=== PATIENT | male | born 1985 | race Caucasian/White ===

== ENCOUNTER 2018-01-17 11:06 | Emergency (ER) | payer BC ==
[2018-01-17] MEDS ORDERED: NA CHLORIDE 0.9% 1,000 ML ONE (11:16)
[2018-01-17 11:35] LABS: Absolute Lymphocytes (CBC) 1.1 K/uL (0.7-4.9); Absolute Monocytes 0.5 K/uL (0.1-1.3); Absolute Neutrophil 7.5 K/uL (1.8-8.0); Basophils % 0.5 % (0-1.3); Eosinophils % 0.8 % (0-4.4); Hematocrit 43.4 % (39.6-49.0); Lymphocytes % 11.7 % (15.3-44.8); MCH 30.4 pg (27.0-35.0); MCV 87.6 fL (80-100); MPV 8.5 fL (7.6-11.3); Monocytes % 5.1 % (3.3-12.3); RBC Red Blood Cell Count 4.96 M/uL (4.33-5.43)
[2018-01-17 11:37] LABS: Protime INR 1.02
--- NOTE | 2018-01-17 11:41 | RAD REPORT ---
EXAM DESCRIPTION: RAD - Chest Single View - 01/17/2018 11:35 am CLINICAL HISTORY: Chest pain COMPARISON: January 2015 TECHNIQUE: AP portable chest image was obtained 1123 hours . FINDINGS: Lungs are clear. Heart and vasculature are normal. No measurable pleural effusion and no p neumothorax. No gross bony abnormality seen. No acute aortic findings suspected. IMPRESSION: No acute cardiopulmonary process. No significant interval change.
[2018-01-17 12:06] LABS: Potassium 3.2 mEq/L (3.6-5.0)
[2018-01-17 12:13] LABS: Albumin 4.3 g/dL (3.2-5.5); Bilirubin Direct 0.1 mg/dL (0-0.2); Bilirubin Total 0.6 mg/dL (0.3-1.2); Magnesium 1.8 mg/dL (1.8-2.5)
[2018-01-17] MEDS ORDERED: POTASSIUM CL SA 10 MEQ TAB PO ONE (12:35)
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
[2018-01-17 13:46] LABS: Urine Blood TRACE (NEG); Urine Glucose NEGATIVE (NEG); Urine Protein NEGATIVE (NEG)
--- NOTE | 2018-01-17 13:46 | EKG ---
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
== END 2018-01-17 14:05 | disposition home or self-care (01) ==
LOC: ER 11:06
DX: R00.0 Tachycardia, unspecified (principal); E86.0 Dehydration; Y99.0 Civilian activity done for income or pay; Z04.2 Encounter for examination and observation following work accident; Z88.6 Allergy status to analgesic agent
CPT/HCPCS: 36415; 71045; 80048; 80076; 81003; 82550; 83735; 83880; 84484; 85025; 85610; 93005; 99285; J7030

== ENCOUNTER 2018-03-30 23:19 | Emergency (ER) | payer BC, SELFPAY ==
--- OUTSIDE RECORDS SUMMARY | 2018-03-30 23:23 | XMS REPORT | Continuity of Care Document ---
:1985 Author Organization Interface Problems Problem Status Onset Classification Date Comments Source Date Reported FOLLOW UP Active 06/13/[address] ACUTE Active 06/08/20 [facility] GALLBLADDER [address] [place] [address] CONSULT FOR Active 05/23/20 [facility] GALLSTONES [address] [place] [address] ACUTE Active 05/21/20 [facility] CHOLECYSTITIS Z[place] STONE IN Active 05/21/20 [facility] GALBLADDER [address] Feeding Resolved 12/16/19 Problem 06/24/2017 inserted [facility] 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 Pain Active Problem 06/24/2017 [facility] Rib pain Active Problem 06/24/2017 [facility] Tracheostomy in Resolved Problem 06/24/2017 [facility] ACUTE Active [facility] CHOLECYSTITIS [place] Medications Medication Details Route Status Patient Ordering Order Source Instructions Provider Date Bisacodyl 10 mg, 1 supp, Inactive [facility] Route: MT, Drug 2017 Medical form: SUPP, Center Daily, Dosing Weight 118.864, kg, PRN Constipation, Start date: 06/12/17 10:27:00 CDT, Duration: 30 day, Stop date: 07/12/17 10:26:00 CSTNotes: (Same As: Dulcolax, Bisco-Lax) Bacitracin 0.5 1 appl, TOP, Active [facility] UNT/MG / QID, # 30 gm, 0 2017 [facility] Polymyxin B 10 Refill(s), [place] UNT/MG Topical [facility] [id number] tramadol 100 mg=2 tab, Active [place] hydrochloride 50 PO, Q6H, PRN 2017 Medical MG Oral Tablet Pain Score 1-3, [place] X 7 day, # 56 tab, 0 Refill(s) Acetaminophen 325 1 tab, PO, Q4H, Active 10/16/ [facility] MG / Hydrocodone PRN Pain Score 2017 Medical Bitartrate 10 MG 4-6, # 30 tab, 0 Center Oral Tablet Refill(s), given [Bath 10/325] to patient Margarito S oral 2 tab, PO, Active [place] tablet Bedtime, X 15 2017 Medical day, # 30 tab, 0 Center Refill(s), [facility] [id number] POLYETHYLENE 17 gm, PO, Active [place] GLYCOL 3350 142 Daily, X 15 day, 2017 Medical MG/ML Oral # 255 gm, 0 Center Solution Refill(s), [Miralax] Pharmacy: [facility] [id number] bacitracin-polymy 1 appl, Route: No Longer [place] evans B topical TOP, QID, Drug Active 2016 Medical form: OINT, Center Start date: 06/11/17 13:00:00 CDT, Duration: 30 day, Stop date: 07/11/17 9:00:00 CSTNotes: (Same As: Polysporin) Neosporin 1 appl, Route: Inactive [place] TOP, QID, Drug 2016 Medical form: OINT, Center Start date: 06/11/17 13:00:00 CDT, Duration: 30 day, Stop date: 07/11/17 9:00:00 PLAN EXAMINER remove patch 1 patch, Route: No Longer [facility], Drug form: Active 2017 Medical ERFILM, Daily, Center Start date: 06/11/17 12:00:00 CDT, Duration: 30 day, Stop date: 07/10/17 12:00:00 CSTNotes: Remove old patch before application of new patch. WASTE: F/P - P Waste Black; E - P Waste Black Nicotine 21 mg, 1 patch, No Longer [place] Route: TOP, Drug Active 2016 Medical form: ERFILM, Center Daily, Dosing Weight 118.864, kg, Start date: 06/11/17 12:00:00 CDT, Duration: 30 day, Stop date: 07/10/17 12:00:00 CSTNotes: (Same as: Habitrol) "Remove old patch before application of new patch" WASTE: F/P - P Waste Black; E - P Waste Black Habitrol 21 mg, Route: Inactive [place] TOP, Drug form: 2017 Medical ERFILM, Q24H, Center Dosing Weight 118.864, kg, Start date: 06/11/17 11:00:00 CDT, Duration: 30 day, Stop date: 07/10/17 11:00:00 PLAN EXAMINER Dulcolax Laxative 10 mg, 2 tab, No Longer [place] Route: PO, Drug Active 2016 Medical form: ECTAB, Center Daily, Dosing Weight 118.864, kg, PRN Constipation, Start date: 06/11/17 10:31:00 CDT, Duration: 30 day, Stop date: 07/11/17 10:30:00 CSTNotes: (Same As: Dulcolax, Correctol) (Do Not Crush) "Do Not Crush" Tramadol 100 mg, 2 tab, No Longer [place] Route: PO, Drug Active 2016 Medical form: TAB, Q6H, Center Dosing Weight 118.864, kg, PRN Pain Score 1-3, Start date: 06/11/17 10:30:00 CDT, Duration: 30 day, Stop date: 07/11/17 10:29:00 CSTNotes: Not to exceed 400mg/day. (Same As: Ultram) Acetaminophen 325 1 tab, Route: No Longer [place] MG / Hydrocodone PO, Drug Form: Active 2016 Medical Bitartrate 10 MG TAB, Dosing Center Oral Tablet Weight 118.864, [Bath 10/325] kg, Q4H, PRN Pain Score 4-6, Start date: 06/11/17 10:29:00 CDT, Duration: 30 day, Stop date: 07/11/17 10:28:00 CSTNotes: Do not exceed 4gm/day of acetaminophen. (Same as: Bath 325/10) Docusate Sodium 100 mg, 1 cap, No Longer [place] 100 MG Oral Route: PO, Drug Active 2016 Medical Capsule [Colace] form: CAP, BID, Center Dosing Weight 118.864, kg, Start date: 06/10/17 17:00:00 CDT, Duration: 30 day, Stop date: 07/10/17 9:00:00 CSTNotes: (Same as: Colace) (Do Not Crush) Cetirizine 10 mg, 1 tab, No Longer [place] Route: PO, Drug Active 2016 Medical form: TAB, Center Daily, Dosing Weight 118.864, kg, Start date: 06/10/17 11:00:00 CDT, Duration: 30 day, Stop date: 07/10/17 9:00:00 CSTNotes: (Same As: Zyrtec) tramadol 50 mg, 1 tab, No Longer [place] hydrochloride 50 Route: PO, Drug Active 2016 Medical MG Oral Tablet form: TAB, Q4H, Center Dosing Weight 118.864, kg, PRN Pain Score 1-3, Start date: 06/10/17 9:46:00 CDT, Duration: 30 day, Stop date: 07/10/17 9:45:00 CSTNotes: Not to exceed 400mg/day. (Same As: Ultram) Acetaminophen 325 1 tab, Route: No Longer [place] MG / Hydrocodone PO, Drug Form: Active 2016 Medical Bitartrate 5 MG TAB, Dosing Center Oral Tablet Weight 118.864, [Bath 5/325] kg, Q4H, PRN Pain Score 4-6, Start date: 06/10/17 9:46:00 CDT, Duration: 30 day, Stop date: 07/10/17 9:45:00 CSTNotes: (Same as: Bath 325/5) Do not exceed 4gm/day of acetaminophen. heparin 5,000 unit, 1 No Longer [place] mL, Route: Active 2016 Medical SUB-Q, Drug Center form: INJ, Q8H, Dosing Weight 118.864, kg, Start date: 06/10/17 8:00:00 CDT, Duration: 30 day, Stop date: 07/10/17 0:00:00 CSTNotes: porcine heparin remove patch 1 patch, Route: No Longer [place] TOP, Drug form: Active 2017 Medical ERFILM, Q24H, Center Start date: 06/10/17 2:00:00 CDT, Duration: 30 day, Stop date: 07/08/17 21:00:00 CSTNotes: WASTE: F/P - P Waste Black; E - P Waste Black D5W 1/2NS 1,000 1,000 mL, Rate: No Longer [facility] mL 50 ml/hr, Infuse Active [facility] Medical over: 20 hr, Center Route: IV, Dosing Weight 118.864 kg, Total Volume: 1,000, Start date: 06/09/17 13:50:00 CDT, Stop date: 07/09/17 13:49:00 PLAN EXAMINER glycopyrrolate Route: IV, Drug Inactive [place] (ANES) form: INJ, ONCE, 2016 Medical Stop date: [place] 06/09/17 10:44:00 CDT neostigmine Route: IV, Drug Inactive [place] (ANES) form: INJ, ONCE, 2016 Medical Stop date: [place] 06/09/17 10:44:00 CDT ondansetron Route: IV, Drug Inactive [place] (ANES) form: INJ, ONCE, 2016 Medical Stop date: [place] 06/09/17 10:34:00 CDT ketOROLAC (ANES) IV, ONCE Inactive [place] [address] [place] [address] hydromorphone Route: IV, Drug Inactive [place] (ANES) form: INJ, ONCE, 2016 Medical Stop date: [place] 06/09/17 9:02:00 CDT ketAMINE (ANES) Route: IV, Drug Inactive [place] form: INJ, ONCE, 2016 Medical Stop date: [place] 06/09/17 8:52:00 CDT famotidine (ANES) Route: IV, Drug Inactive [place] form: INJ, ONCE, 2016 Medical Stop date: [place] 06/09/17 8:42:00 CDT dexamethasone Route: IV, Drug Inactive [place] (ANES) form: INJ, ONCE, 2016 Medical Stop date: [place] 06/09/17 8:42:00 CDT succinylcholine Route: IV, Drug Inactive [place] (ANES) form: INJ, ONCE, 2016 Medical Stop date: [place] 06/09/17 8:42:00 CDT fentaNYL (ANES) Route: IV, Drug Inactive [place] form: INJ, ONCE, 2016 Medical Stop date: [place] 06/09/17 8:42:00 CDT rocuronium (ANES) Route: IV, Drug Inactive [place] form: INJ, ONCE, 2016 Medical Stop date: [place] 06/09/17 8:42:00 CDT lidocaine (ANES) Route: IV, Drug Inactive [place] form: INJ, ONCE, 2016 Medical Stop date: [place] 06/09/17 8:42:00 CDT propofol (ANES) Route: IV, Drug Inactive [place] form: INJ, ONCE, 2016 Medical Stop date: [place] 06/09/17 8:42:00 CDT metoclopramide Route: IV, Drug Inactive [place] (ANES) form: INJ, ONCE, 2016 Medical Stop date: [place] 06/09/17 8:42:00 CDT sodium Route: IV, Drug Inactive [place] bicarbonate form: INJ, ONCE, 2016 Medical (ANES) Stop date: [place] 06/09/17 8:42:00 CDT ceFAZolin (ANES) Route: IV, Drug Inactive [place] form: INJ, ONCE, 2016 Medical Stop date: [place] 06/09/17 8:27:00 CDT Hydralazine 10 mg, Route: Inactive [facility] IVP, Q20Min, 2016 Medical Dosing Weight Center 118.864, kg, PRN Elevated BP, Start date: 06/09/17 8:19:00 CDT, Duration: 2 doses or times, Stop date: Limited # of times Labetalol 10 mg, Route: Inactive [facility] IVP, Q5Min, 2016 Medical Dosing Weight Center 118.864, kg, PRN Elevated BP, Start date: 06/09/17 8:19:00 CDT, Duration: 5 doses or times, Stop date: Limited # of times Naloxone 0.4 mg, Route: Inactive [facility] IVP, Q2MIN, 2016 Medical Dosing Weight Center 118.864, kg, PRN Narcotic Reversal, Start date: 06/09/17 8:19:00 CDT, Duration: 8 doses or times, Stop date: Limited # of times Ondansetron 4 mg, Route: Inactive [place] IVP, ONCE, 2016 Medical Dosing Weight Center 118.864, kg, PRN Nausea & Vomiting, Start date: 06/09/17 8:19:00 CDT Flumazenil 0.2 mg, Route: Inactive [facility] IVP, PRN, Dosing 2017 Medical Weight 118.864, Center kg, PRN Benzodiazepine Reversal, Initial dose, Start date: 06/09/17 8:19:00 CDT, Duration: 30 day, Stop date: 07/09/17 7:18:00 PLAN EXAMINER Hydromorphone 0.5 mg, Route: Inactive [facility] IVP, Q5Min, 2017 Medical Dosing Weight Center 118.864, kg, PRN Pain Score 7-10, Start date: 06/09/17 8:19:00 CDT, Duration: 4 doses or times, Stop date: Limited # of times acetaminophen Route: IV, Drug Inactive [place] (ANES) (ANES) form: INJ, Start 2017 Medical date: 06/09/17 [place] 8:03:00 CDT, Stop date: 06/09/17 9:03:00 CDT midazolam (ANES) Route: IV, Drug Inactive [place] form: SOLN, 2017 Medical ONCE, Stop date: [place] 06/09/17 8:01:00 CDT Plasma-Lyte A Route: IV, Total Inactive [place] PH-7.4 1000 ml Volume: 1,000, 2017 Medical INJ (ANES) Start date: [place] 06/09/17 7:32:00 CDT, Stop date: 06/09/17 8:32:00 CDT Protonix 40 mg, 1 tab, No Longer [place] Route: PO, Drug Active 2017 [facility], Start date: 06/09/17 7:30:00 CDT, Duration: 30 day, Stop date: 07/08/17 16:30:00 PLAN EXAMINER Omeprazole 20 mg, Route: Inactive [place] PO, Drug form: [address] [place] [address] [facility], Dosing Weight 118.864, kg, Start date: 06/09/17 7:30:00 CDT, Duration: 30 day, Stop date: 07/08/17 16:30:00 PLAN EXAMINER, Substitute Allowed Yes Habitrol 14 mg, 1 patch, No Longer [place] Route: TOP, Drug Active 2016 Medical form: ERFILM, Center Q24H, Dosing Weight 118.864, kg, Start date: 06/09/17 2:00:00 CDT, Duration: 30 day, Stop date: 07/07/17 21:00:00 CSTNotes: (Same as: Habitrol) "Remove old patch before application of new patch" WASTE: F/P - P Waste Black; E - P Waste Black Nicotine 14 mg, 1 patch, No Longer [place] Route: TOP, Drug Active 2016 Medical form: ERFILM, Center Q24H, Dosing Weight 118.864, kg, Start date: 06/08/17 22:30:00 CDT, Duration: 30 day, Stop date: 07/07/17 22:30:00 CSTNotes: (Same as: Habitrol) "Remove old patch before application of new patch" WASTE: F/P - P Waste Black; E - P Waste Black Zosyn 3.375 gm, Route: No Longer [place] IVPB, Drug form: Active 2016 Medical PDR/INJ, ABXQ8H, Center Dosing Weight 118.864, kg, CrCl >=20 ml/min infuse over 4 hours, Priority: NOW, Start date: 06/08/17 21:17:00 CDT, Duration: 7 day, Stop date: 06/15/17 13:17:00 CDT, ABX Indication: Intra-abdominal I...Notes: (Same as: Zosyn) Dosing based on Piperacillin component MEDICATION WASTE Product Size: 3375 mg Product Wasted: __0_ mg Diazepam 5 mg, 1 tab, No Longer [place] Route: PO, Drug Active 2016 Medical form: TAB, Center Bedtime, Dosing Weight 119.3, kg, Start date: 06/08/17 21:00:00 CDT, Duration: 30 day, Stop date: 07/07/17 21:00:00 CSTNotes: (Same as: Valium) diazepam 5 mg 5 mg=1 tab, PO, Active [place] oral tablet Bedtime, PRN 2017 [facility] Anxiety [place] Iohexol 150 mL, Route: Inactive [place] IVP, Drug Form: 2017 Medical SOLN, Dosing Center Weight 118.864, kg, ONCALL, STAT, Start date: 06/08/17 18:22:00 CDT, Duration: 1 doses or times, Dose=2.2ml/kg, Max [id number]=[id number] -- "To be infused by Radiology Staff ONLY" Dilaudid 0.1 mg, 0.05 mL, No Longer [place] Route: IVP, Drug Active 2016 Medical form: INJ, Q4H, Center Dosing Weight 119.3, kg, PRN Pain Score 7-10, Start date: 06/08/17 16:32:00 CDT, Stop date: 07/08/17 16:31:00 CSTNotes: Same as: Dilaudid Simethicone 80 mg, 1 tab, No Longer [place] Route: CHEW, Active 2016 Medical Drug form: Center CHEWTAB, QID, Dosing Weight 119.3, kg, PRN Gas, Priority: NOW, Start date: 06/08/17 16:04:00 CDT, Duration: 30 day, Stop date: 07/08/17 16:03:00 CSTNotes: (Same as: Mylicon) Protonix 40 mg, Route: No Longer [place] IVP, Drug form: Active 2016 Medical INJ, Before Center Breakfast, Dosing Weight 119.3, kg, Priority: NOW, Start date: 06/08/17 16:03:00 CDT, Duration: 30 day, Stop date: 07/08/17 7:30:00 CSTNotes: For IV push reconstitute with 10 ml 0.9% sodium chloride and push over 2 minutes. (Same as: Protonix) sodium chloride 1,000 mL, Rate: No Longer [place] 0.9% 1000 ml INJ 150 ml/hr, Active 2017 Medical 1,000 mL Infuse over: 6.7 Center hr, Route: IV, Dosing Weight 119.3 kg, Total Volume: 1,000, Start date: 06/08/17 15:38:00 CDT, Duration: 30 day, Stop date: 07/08/17 15:37:00 PLAN EXAMINER Glucagon 1 mg, Route: IM, No Longer [place] Drug form: Active 2017 Medical PDR/INJ, PRN, Center Dosing Weight 119.3, kg, PRN Blood Glucose Results, Start date: 06/08/17 15:34:00 CDT, Duration: 30 day, Stop date: 07/08/17 14:33:00 PLAN EXAMINER Dextrose 50% 25 gm, 50 mL, No Longer [place] Syringe Route: IVP, Drug Active 2016 Medical Form: INJ, Center Dosing Weight 119.3, kg, PRN, PRN Blood Glucose Results, Start date: 06/08/17 15:34:00 CDT, Duration: 30 day, Stop date: 07/08/17 14:33:00 PLAN EXAMINER Insulin regular 5 unit, 0.05 mL, No Longer [facility] Route: SUB-Q, Active 2016 Medical Drug form: SOLN, Center Sliding Scale, Dosing Weight 119.3, kg, PRN Blood Glucose Results, Start date: 06/08/17 15:34:00 CDT, Duration: 30 day, Stop date: 07/08/17 14:33:00 CSTNotes: (Same as: Humulin R) Roll in palms of hands gently; Do not shake vigorously. "single patient use only" (Restricted to patients requiring a dose > 60 units) WASTE: F/P - Black; E - Boostable Trash Bin Stable for 28 days at room temperature Expires in days from Da te Phenergan 12.5 mg, 0.5 mL, No Longer [place] Route: IVPB, Active 2016 Medical Drug form: INJ, Center Q4H, Dosing Weight 119.3, kg, PRN Nausea & Vomiting, Start date: 06/08/17 15:27:00 CDT, Duration: 30 day, Stop date: 07/08/17 15:26:00 CSTNotes: Do not give IV push. (Same as: Phenergan) Dextrose 5% with 1,000 mL, Rate: Inactive [place] 0.45% NaCl IV 150 ml/hr, 2017 Medical 1,000 mL Infuse over: 6.7 Center hr, Route: IV, Dosing Weight 119.3 kg, Total Volume: 1,000, Start date: 06/08/17 15:27:00 CDT, Duration: 30 day, Stop date: 07/08/17 15:26:00 PLAN EXAMINER Saline Flush 0.9% 10 ml, Route: No Longer [place] IVP, Drug Form: Active 2017 Medical INJ, Dosing Center Weight 119.3, kg, PRN, PRN Line Flush, Start date: 06/08/17 15:27:00 CDT, Duration: 30 day, Stop date: 07/08/17 14:26:00 CSTNotes: (Same as: BD Posiflush) Morphine 2 mg, 0.5 mL, Inactive [place] Route: IVP, Drug 2016 Medical form: SOLN, Q4H, Center Dosing Weight 119.3, kg, PRN Pain Score 7-10, Start date: 06/08/17 15:27:00 CDT, Duration: 30 day, Stop date: 07/08/17 15:26:00 CSTNotes: (Same as:MORPhine Sulfate) Acetaminophen 300 1 tab, PO, Q6H, Active [place] MG / Codeine 0 Refill(s) 2017 Medical Phosphate 30 MG Center Oral Tablet Omeprazole Route: PO, No Longer Daily, Dosing Active 2016 [place] Weight 121.818, kg, Start date: 05/23/17 9:00:00 CDT, Duration: 30 day, Stop date: 06/21/17 9:00:00 CDT Zyrtec 10 mg, 2 tab, No Longer Route: PO, Drug Active 2016 [place] form: TAB, Daily, Dosing Weight 121.818, kg, Start date: 05/23/17 9:00:00 CDT, Duration: 30 day, Stop date: 06/21/17 9:00:00 CDTNotes: (Same As: Zyrtec) Protonix 40 mg, 1 tab, No Longer Route: PO, Drug Active 2016 [place] form: ECTAB, Before Breakfast, Start date: 05/23/17 7:30:00 CDT, Duration: 30 day, Stop date: 06/21/17 7:30:00 CDTNotes: Tablet should not be chewed or crushed. (Same as: Protonix) Diazepam 5 mg, 1 tab, Inactive Route: PO, Drug 2016 [place] form: TAB, Bedtime, Dosing Weight 121.818, kg, Start date: 05/22/17 21:00:00 CDT, Duration: 30 day, Stop date: 06/20/17 21:00:00 CDTNotes: (Same as: Valium) Acetaminophen 300 1 - 2 tab, PO, No Longer MG / Codeine Q4H, PRN Pain, X Active 2016 [place] Phosphate 30 MG 2 day, # 20 tab, Oral Tablet 0 Refill(s) [Tylenol with Codeine #3] Diazepam 5 mg, 1 tab, Inactive Route: PO, Drug 2016 [place] form: TAB, ONCE, Dosing Weight 121.818, kg, PRN Anxiety, Start date: 05/21/17 22:23:00 CDTNotes: (Same as: Valium) Zyrtec 10 mg, PO, Active Daily, 0 2016 [place] Refill(s) Omeprazole See Active Instructions, 2016 [place] Omeprazole with magnesium 20.6 PO Daily, 0 Refill(s) Diazepam 5 mg, PO, Active Bedtime, 0 2016 [place] Refill(s) Ondansetron 4 mg, 2 mL, No Longer Route: IVP, Drug Active 2016 [place] form: INJ, Q6H, Dosing Weight 120.455, kg, PRN Nausea & Vomiting, Start date: 05/21/17 16:11:00 CDT, Duration: 30 day, Stop date: 06/20/17 16:10:00 CDTNotes: (Same as: Renay) MEDICATION WASTE Product Size: 4 mg Product Wasted: ___ mg Acetaminophen 650 mg, 2 tab, No Longer Route: PO, Drug Active 2016 [place] form: TAB, Q4H, Dosing Weight 120.455, kg, PRN Pain 1-3/Temp > 100.4 F, Start date: 05/21/17 16:11:00 CDT, Duration: 30 day, Stop date: 06/20/17 16:10:00 CDTNotes: Do not exceed 4 gm/day. (Same as: Tylenol) Acetaminophen 325 1 tab, Route: No Longer MG / Hydrocodone PO, Drug Form: Active 2016 [place] Bitartrate 5 MG TAB, Dosing Oral Tablet Weight 120.455, kg, Q4H, PRN Pain Score 4-6, Start date: 05/21/17 16:11:00 CDT, Duration: 30 day, Stop date: 06/20/17 16:10:00 CDTNotes: (Same as: Bath 325/5) Do not exceed 4gm/day of acetaminophen. Morphine 2 mg, 1 mL, No Longer Route: IVP, Drug Active 2016 [place] form: SOLN, Q4H, Dosing Weight 120.455, kg, PRN Pain Score 7-10, Start date: 05/21/17 16:11:00 CDT, Duration: 30 day, Stop date: 06/20/17 16:10:00 CDT Zosyn 3.375 gm, Route: Inactive IVPB, ONCE, 2016 [place] Dosing Weight 120.455, kg, Priority: STAT, Start date: 05/21/17 15:50:00 CDT, Duration: 1 doses or times, Stop date: 05/21/17 15:50:00 CDT, ABX Indication: Surgical ProphylaxisNotes : (Same as: Zosyn) Dosing based on Piperacillin component MEDICATION WASTE Product Size: 3375 mg Product Wasted: ___ mg Morphine 4 mg, Route: Inactive IVP, ONCE, 2016 [place] Dosing Weight 120.455, kg, Start date: 05/21/17 15:35:00 CDT, Stop date: 05/21/17 15:35:00 CDT Sodium Chloride 1,000 mL, 1,000 Inactive 0.9% (Bolus) IV ml/hr, Infuse 2016 [place] Over: 1 hr, Route: IV, 1,000, Drug form: INJ, ONCE, Priority: STAT, Dosing Weight 120.455 kg, Start date: 05/21/17 15:35:00 CDT, Duration: 1 doses or times, Stop date: 05/21/17 15:35:00 CDT Ondansetron 4 mg, 2 mL, Inactive Route: IVP, Drug 2016 [place] form: INJ, ONCE, Dosing Weight 120.455, kg, Priority: STAT, Start date: 05/21/17 14:13:00 CDT, Stop date: 05/21/17 14:13:00 CDTNotes: (Same as: Renay) MEDICATION WASTE Product Size: 4 mg Product Wasted: ___ mg Sodium Chloride 1,000 mL, 1000 Inactive 0.9% (Bolus) IV ml/hr, Infuse 2016 [place] Over: 1 hr, Route: IV, 1,000, Drug form: INJ, ONCE, Priority: STAT, Dosing Weight 120.455 kg, Start date: 05/21/17 14:13:00 CDT, Duration: 1 doses or times, Stop date: 05/21/17 14:13:00 CDT Allergies, Adverse Reactions, Alerts Substance Category Reaction Severity Reaction Status Date Comments Source type Reported NKDA Assertion Drug Active [facility] [place], [place] Immunizations Immunization Date Given Site Status Last Updated Comments Source Results Order Name Results Value Reference Date Interpretation Comments Source Range CHEM PANEL ALT 188 unit/L 0 - 65 06/[address] CHEM PANEL Bili Total 1.1 mg/dL 0.2 - 1.3 06/[address] CHEM PANEL Bili Direct 0.1 mg/dL 0.0 - 0.3 06/[address] CHEM PANEL AST 69 unit/L 0 - 37 06/[address] CHEM PANEL Alk Phos 125 unit/L 39 - 136 06/[address] CHEM PANEL Albumin Lvl 3.3 g/dL 3.5 - 5.0 06/[address] CHEM PANEL Total 7.4 g/dL 6.4 - 8.4 06/12 [facility] Protein [address] CHEM PANEL Bili 1.0 mg/dL 0.0 - 1.0 06/[address] CHEM PANEL Globulin 4.1 g/dL 2.7 - 4.2 06/[address] CHEM PANEL A/G Ratio 0.8 0.7 - 1.6 06/[address] CHEM PANEL Phosphorus 3.9 mg/dL 2.5 - 4.5 06/[address] CHEM PANEL Magnesium 2.2 mg/dL 1.8 - 2.4 06/12 [facility] ELECTROLYTE AGAP 12.9 meq/L 10.0 - 06/12 [facility] 20. [facility] ELECTROLYTE eGFR 123 06/12 Result Comment: The eGFR is calculated using the CKD-EPI formula. In most young, healthy individuals the eGFR will be > 90 mL/min/1.73m2. The eGFR declines with age. An eGFR of 60-89 may be normal in [facility] mL/min/1.7 some populations, particularly the elderly, for whom the CKD-EPI formula has not been extensively validated. Use of the eGFR is not recommended in the following populations: [address] Individuals with unstable creatinine concentrations, including patients and those with serious co-morbid conditions. Patients with extremes in muscle mass or diet. The data above are obtained from the National Kidney Disease Education Program (NKDEP) which additionally recommends that when the eGFR is used in patients with extremes of body mass index for purposes of drug dosing, the eGFR should be multiplied by the estimated BMI. ELECTROLYTE Calcium Lvl 9.0 mg/dL 8.5 - 10.5 06/12 [facility] ELECTROLYTE CO2 26 meq/L 24 - 32 06/[address] ELECTROLYTE Potassium 3.9 meq/L 3.5 - 5.1 06/12 [facility] ELECTROLYTE Chloride Lvl 104 meq/L 95 - 109 06/[address] ELECTROLYTE Creatinine 0.71 mg/dL 0.50 - 06/12 [facility]. [facility] ELECTROLYTE Sodium Lvl 139 meq/L 135 - 145 06/12 [facility] ELECTROLYTE BUN 8 mg/dL 7 - 22 06/12 [facility] ELECTROLYTE Glucose Lvl 85 mg/dL 70 - 99 06/12 [facility] /2016 [facility] HEMATOLOGY RBC 4.58 M/CMM 4.70 - 06/12 [place] 6. [facility] HEMATOLOGY MCV 89.3 fL 80.0 - 06/12 [facility] 94.0 [facility] HEMATOLOGY WBC 7.3 K/CMM 3.7 - 10.4 06/12 [facility] HEMATOLOGY RDW 13.4 % 11.5 - 06/12 [facility] 14.5 [facility] HEMATOLOGY Platelet 178 K/CMM 133 - 450 06/12 [facility] HEMATOLOGY MPV 8.4 fL 7.4 - 10.4 06/12 [facility] HEMATOLOGY MCH 30.8 pg 27.0 - 06/12 31.0 [facility] HEMATOLOGY MCHC 34.4 g/dL 32.0 - 06/12 36.0 [facility] HEMATOLOGY Hgb 14.1 g/dL 14.0 - 06/12 [place] 18.0 [facility] HEMATOLOGY Hct 40.9 % 42.0 - 06/12 [place] 54.0 [facility] HEMATOLOGY Eosinophils 2.0 % 0.0 - 4.0 06/12 [facility] HEMATOLOGY Basophils 0.7 % 0.0 - 1.0 06/12 [facility] HEMATOLOGY Segs-Bands # 5.1 K/CMM 1.5 - 8.1 06/12 [facility] HEMATOLOGY Lymphocytes 1.4 K/CMM 1.0 - 5.5 06/12 [facility] [facility] HEMATOLOGY Monocytes # 0.6 K/CMM 0.0 - 0.8 06/12 [facility] HEMATOLOGY Eosinophils 0.1 K/CMM 0.0 - 0.5 06/12 [facility] HEMATOLOGY Basophils # 0.1 K/CMM 0.0 - 0.2 06/12 [facility] HEMATOLOGY Segs 70.2 % 45.0 - 06/12 75.0 [facility] HEMATOLOGY Lymphocytes 18.9 % 20.0 - 06/12 [place] 40.0 2017 [facility] HEMATOLOGY Monocytes 8.2 % 2.0 - 12.0 06/12 [facility] CHEM PANEL Phosphorus 2.1 mg/dL 2.5 - 4.5 06/11 [facility] CHEM PANEL Magnesium 2.2 mg/dL 1.8 - 2.4 06/11 [facility] Lvl [facility] CHEM PANEL Globulin 3.7 g/dL 2.7 - 4.2 06/11 [facility] CHEM PANEL A/G Ratio 0.9 0.7 - 1.6 06/11 [facility] CHEM PANEL Bili 0.7 mg/dL 0.0 - 1.0 06/11 [facility] CHEM PANEL ALT 209 unit/L 0 - 65 06/11 [facility] CHEM PANEL Albumin Lvl 3.4 g/dL 3.5 - 5.0 06/11 [facility] CHEM PANEL Total 7.1 g/dL 6.4 - 8.4 06/11 [facility] CHEM PANEL Bili Direct 0.1 mg/dL 0.0 - 0.3 06/11 [facility] CHEM PANEL Bili Total 0.8 mg/dL 0.2 - 1.3 06/11 [facility] CHEM PANEL Alk Phos 138 unit/L 39 - 136 06/11 [facility] CHEM PANEL AST 41 unit/L 0 - 37 06/11 [facility] CHEM PANEL eGFR 121 06/11 Result Comment: The eGFR is calculated using the CKD-EPI formula. In most young, healthy individuals the eGFR will be >90 mL/ min/1.73m2. The eGFR declines with age. An eGFR of 60-89 may be normal in [facility] mL/min/1.7 some populations, particularly the elderly, for whom the CKD-EPI formula has not been extensively validated. Use of the eGFR is not recommended in the following populations: [address] Individuals with unstable creatinine

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
--- OUTSIDE RECORDS SUMMARY | 2018-03-30 23:24 | XMS REPORT | Summary of Care ---
:1985 Author Organization [facility] Address [address] [place] [id number]- Encounter HQ Encntr_alias(FIN) [id number] Date(s): 06/08/17 - 06/12/[address] Professional Services provided by [facility] [place] [address]- Discharge Disposition: Home or Self Care Attending Physician: Bijan Mcneill MD Admitting Physician: Bijan Mcneill MD Referring Physician: Tex Gambino MD Vital Signs Most recent to oldest 1 2 3 [Reference Range]: Height 180.34 cm (06/08/17 4:21 PM) Current Weight 117.545 kg 119.205 kg 118.002 kg (06/12/17 9:43 AM) (06/11/17 4:19 AM) (06/09/17 5:07 AM) Temperature Oral [96.4-99.1 97.7 DegF 97.9 DegF 97.5 DegF DegF] (06/12/17 11:38 AM) (06/12/17 7:34 AM) (06/12/17 4:44 AM) Blood Pressure 141/94 mmHg 137/85 mmHg 125/82 mmHg [90-140/60-90 mmHg] *HI* (06/12/17 7:34 AM) (06/12/17 4:44 AM) (06/12/17 11:38 AM) Respiratory Rate [14-20 18 BRMIN 18 BRMIN 18 BRMIN BRMIN] (06/12/17 11:38 AM) (06/12/17 7:34 AM) (06/12/17 4:44 AM) Peripheral Pulse Rate 87 bpm 79 bpm 79 bpm [60-100 bpm] (06/12/17 11:38 AM) (06/12/17 7:34 AM) (06/12/17 4:44 AM) Weight 118.864 kg 118.636 kg (06/08/17 5:49 PM) (06/08/17 4:21 PM) Body Mass Index 36.48 m2 (06/08/17 4:21 PM) Problem List Condition Effective Dates Status Health Status Informant Feeding catheter, 12/15/09 - 12/21/09 Resolved device(Confirmed)1 Morbid obesity(Confirmed) Active Pain(Confirmed) Active Rib pain(Confirmed) Active Tracheostomy in place(Confirmed) Resolved 1inserted ENDO [place] Allergies, Adverse Reactions, Alerts Substance Reaction Severity Status NKDA Active Medications acetaminophen (ANES) (ANES) Route: IV, Drug form: INJ, Start date: 06/09/17 8:03:00 CDT, Stop date: 9:03:00 CDT Start Date: 06/09/17 Stop Date: 06/09/17 Status: CompletedANES flumazenil 0.2 mg, Route: IVP, PRN, Dosing Weight 118.864, kg, PRN Benzodiazepine Reversal , Initial dose, Startdate: 06/09/17 8:19:00 CDT, Duration: 30 day, Stop date: 7:18:00 DISBURSING OFFICER Start Date: 06/09/17 Stop Date: 06/09/17 Status: DiscontinuedANES hydrALAZINE 10 mg, Route: IVP, Q20Min, Dosing Weight 118.864, kg, PRN Elevated BP, Start date: 06/09/17 8:19:00 CDT, Duration: 2 doses or times, Stop date: Limited # of times Start Date: 06/09/17 Stop Date: 06/09/17 Status: DiscontinuedANES HYDROmorphone 0.5 mg, Route: IVP, Q5Min, Dosing Weight 118.864, kg, PRN Pain Score 7-10, Start date: 06/09/17 8:19:00 CDT, Duration: 4 doses or times, Stop date: Limited # of times Start Date: 06/09/17 Stop Date: 06/09/17 Status: DiscontinuedANES labetalol 10 mg, Route: IVP, Q5Min, Dosing Weight 118.864, kg, PRN Elevated BP, Start date : 06/09/17 8:19:00 CDT, Duration: 5 doses or times, Stop date: Limited # of times Start Date: 06/09/17 Stop Date: 06/09/17 Status: DiscontinuedANES naloxone 0.4 mg, Route: IVP, Q2MIN, Dosing Weight 118.864, kg, PRN Narcotic Reversal, Start date: 06/09/17 8:19:00 CDT, Duration: 8 doses or times, Stop date: Limited # of times Start Date: 06/09/17 Stop Date: 06/09/17 Status: DiscontinuedANES ondansetron 4 mg, Route: IVP, ONCE, Dosing Weight 118.864, kg, PRN Nausea & Vomiting, Start date: 06/09/17 8:19:00 CDT Start Date: 06/09/17 Stop Date: 06/09/17 Status: Discontinuedbacitracin-polymyxin B topical 1 appl, Route: TOP, QID, Drug form: OINT, Start date: 06/11/17 13:00:00 CDT, Duration: 30 day, Stop date: 07/11/17 9:00:00 DISBURSING OFFICER Notes: (Same As: Polysporin) Start Date: 06/11/17 Stop Date: 06/12/17 Status: Discontinuedbacitracin-polymyxin B topical ointment 1 appl, TOP, QID, # 30 gm, 0 Refill(s), Pharmacy: [facility] [id number] Start Date: 06/12/17 Stop Date: 06/26/17 Status: Orderedbisacodyl 10 mg, 1 supp, Route: LA, Drug form: SUPP, Daily, Dosing Weight 118.864, kg, PRN Constipation, Startdate: 06/12/17 10:27:00 CDT, Duration: 30 day, Stop date : 07/12/17 10:26:00 DISBURSING OFFICER Notes: (Same As: Dulcolax, Bisco-Lax) Start Date: 06/12/17 Stop Date: 06/12/17 Status: DiscontinuedceFAZolin (ANES) Route: IV, Drug form: INJ, ONCE, Stop date: 06/09/17 8:27:00 CDT Start Date: 06/09/17 Stop Date: 06/09/17 Status: Completedcetirizine 10 mg, 1 tab, Route: PO, Drug form: TAB, Daily, Dosing Weight 118.864, kg, Start date: 06/10/17 11:00:00 CDT, Duration: 30 day, Stop date: 07/10/17 9:00: 00 DISBURSING OFFICER Notes: (Same As: Zyrtec) Start Date: 06/10/17 Stop Date: 06/12/17 Status: DiscontinuedColace 100 mg oral capsule 100 mg, 1 cap, Route: PO, Drug form: CAP, BID, Dosing Weight 118.864, kg, Start date: 06/10/17 17:00:00 CDT, Duration: 30 day, Stop date: 07/10/17 9:00:00 DISBURSING OFFICER Notes: (Same as: Colace) (Do Not Crush) Start Date: 06/10/17 Stop Date: 06/12/17 Status: [id number] 1/2NS 1,000 mL 1,000 mL, Rate: 50 ml/hr, Infuse over: 20 hr, Route: IV, Dosing Weight 118.864 kg, Total Volume: 1,000, Start date: 06/09/17 13:50:00 CDT, Stop date: 07/09/17 13:49:00 DISBURSING OFFICER Start Date: 06/09/17 Stop Date: 06/11/17 Status: Discontinueddexamethasone (ANES) Route: IV, Drug form: INJ, ONCE, Stop date: 06/09/17 8:42:00 CDT Start Date: 06/09/17 Stop Date: 06/09/17 Status: CompletedDextrose 5% with 0.45% NaCl IV 1,000 mL 1,000 mL, Rate: 150 ml/hr, Infuse over: 6.7 hr, Route: IV, Dosing Weight 119.3 kg, Total Volume: 1,000, Start date: 06/08/17 15:27:00 CDT, Duration: 30 day, Stop date: 07/08/17 15:26:00 DISBURSING OFFICER Start Date: 06/08/17 Stop Date: 06/08/17 Status: DiscontinuedDextrose 50% Syringe 25 gm, 50 mL, Route: IVP, Drug Form: INJ, Dosing Weight 119.3, kg, PRN, PRN Blood Glucose Results, Start date: 06/08/17 15:34:00 CDT, Duration: 30 day, Stop date: 07/08/17 14:33:00 DISBURSING OFFICER Start Date: 06/08/17 Stop Date: 06/12/17 Status: DiscontinuedDextrose 50% Syringe 12.5 gm, 25 mL, Route: IVP, Drug Form: INJ, Dosing Weight 119.3, kg, PRN, PRN Blood Glucose Results,Start date: 06/08/17 15:34:00 CDT, Duration: 30 day, Stop date: 07/08/17 14:33:00 DISBURSING OFFICER Start Date: 06/08/17 Stop Date: 06/12/17 Status: Discontinueddiazepam 5 mg, 1 tab, Route: PO, Drug form: TAB, Bedtime, Dosing Weight 119.3, kg, Start date: 06/08/17 21:00:00 CDT, Duration: 30 day, Stop date: 07/07/17 21:00:00 DISBURSING OFFICER Notes: (Same as: Valium) Start Date: 06/08/17 Stop Date: 06/12/17 Status: Discontinueddiazepam 5 mg oral tablet 5 mg=1 tab, PO, Bedtime, PRN Anxiety Start Date: 06/08/17 Stop Date: 07/08/17 Status: OrderedDilaudid 0.1 mg, 0.05 mL, Route: IVP, Drug form: INJ, Q4H, Dosing Weight 119.3, kg, PRN Pain Score 7-10, Start date: 06/08/17 16:32:00 CDT, Stop date: 07/08/17 16:31: 00 DISBURSING OFFICER Notes: Same as: Dilaudid Start Date: 06/08/17 Stop Date: 06/12/17 Status: DiscontinuedDulcolax Laxative 10 mg, 2 tab, Route: PO, Drug form: ECTAB, Daily, Dosing Weight 118.864, kg, PRN Constipation, Startdate: 06/11/17 10:31:00 CDT, Duration: 30 day, Stop date : 07/11/17 10:30:00 DISBURSING OFFICER Notes: (Same As: Dulcolax, Correctol) (Do Not Crush) "Do Not Crush" Start Date: 06/11/17 Stop Date: 06/12/17 Status: Discontinuedfamotidine (ANES) Route: IV, Drug form: INJ, ONCE, Stop date: 06/09/17 8:42:00 CDT Start Date: 06/09/17 Stop Date: 06/09/17 Status: CompletedfentaNYL (ANES) Route: IV, Drug form: INJ, ONCE, Stop date: 06/09/17 8:42:00 CDT Start Date: 06/09/17 Stop Date: 06/09/17 Status: Completedglucagon 1 mg, Route: IM, Drug form: PDR/INJ, PRN, Dosing Weight 119.3, kg, PRN Blood Glucose Results, Start date: 06/08/17 15:34:00 CDT, Duration: 30 day, Stop date : 07/08/17 14:33:00 DISBURSING OFFICER Start Date: 06/08/17 Stop Date: 06/12/17 Status: Discontinuedglycopyrrolate (ANES) Route: IV, Drug form: INJ, ONCE, Stop date: 06/09/17 10:44:00 CDT Start Date: 06/09/17 Stop Date: 06/09/17 Status: CompletedHabitrol 14 mg, 1 patch, Route: TOP, Drug form: ERFILM, Q24H, Dosing Weight 118.864, kg, Start date: 172:00:00 CDT, Duration: 30 day, Stop date: 07/07/17 21:00:00 DISBURSING OFFICER Notes: (Same as: Habitrol)"Remove old patch before application of new patch "WASTE: F/P - P Waste Black; E - P Waste Black Start Date: 06/09/17 Stop Date: 06/11/17 Status: DiscontinuedHabitrol 21 mg, Route: TOP, Drug form: ERFILM, Q24H, Dosing Weight 118.864, kg, Start date: 06/11/17 11:00:00CDT, Duration: 30 day, Stop date: 07/10/17 11:00:00 DISBURSING OFFICER Start Date: 06/11/17 Stop Date: 06/11/17 Status: Canceledheparin 5,000 unit, 1 mL, Route: SUB-Q, Drug form: INJ, Q8H, Dosing Weight 118.864, kg, Start date: 10/14/178:00:00 CDT, Duration: 30 day, Stop date: 07/10/17 0:00:00 DISBURSING OFFICER Notes: porcine heparin Start Date: 06/10/17 Stop Date: 06/12/17 Status: Discontinuedhydromorphone (ANES) Route: IV, Drug form: INJ, ONCE, Stop date: 06/09/17 9:02:00 CDT Start Date: 06/09/17 Stop Date: 06/09/17 Status: CompletedInsulin regular 5 unit, 0.05 mL, Route: SUB-Q, Drug form: SOLN, Sliding Scale, Dosing Weight 119.3, kg, PRN Blood Glucose Results, Start date: 06/08/17 15:34:00 CDT, Duration: 30 day, Stop date: 07/08/17 14:33:00 DISBURSING OFFICER Notes: (Same as: Humulin R) Roll in palms of hands gently; Do not shake vigorously. "single patientuse only"(Restricted to patients requiring a dose > 60 units)WASTE: F/P - Black; E - Municipal Trash Bin Stable for 28 days at room temperatureExpires in days from Date Start Date: 06/08/17 Stop Date: 06/12/17 Status: DiscontinuedInsulin regular 4 unit, 0.04 mL, Route: SUB-Q, Drug form: SOLN, Sliding Scale, Dosing Weight 119.3, kg, PRN Blood Glucose Results, Start date: 06/08/17 15:34:00 CDT, Duration: 30 day, Stop date: 07/08/17 14:33:00 DISBURSING OFFICER Notes: (Same as: Humulin R) Roll in palms of hands gently; Do not shake vigorously. "single patientuse only"(Restricted to patients requiring a dose > 60 units)WASTE: F/P - Black; E - Municipal Trash Bin Stable for 28 days at room temperatureExpires in days from Date Start Date: 06/08/17 Stop Date: 06/12/17 Status: DiscontinuedInsulin regular 3 unit, 0.03 mL, Route: SUB-Q, Drug form: SOLN, Sliding Scale, Dosing Weight 119.3, kg, PRN Blood Glucose Results, Start date: 06/08/17 15:34:00 CDT, Duration: 30 day, Stop date: 07/08/17 14:33:00 DISBURSING OFFICER Notes: (Same as: Humulin R) Roll in palms of hands gently; Do not shake vigorously. "single patientuse only"(Restricted to patients requiring a dose > 60 units)WASTE: F/P - Black; E - Municipal Trash Bin Stable for 28 days at room temperatureExpires in days from Date Start Date: 06/08/17 Stop Date: 06/12/17 Status: DiscontinuedInsulin regular 2 unit, 0.02 mL, Route: SUB-Q, Drug form: SOLN, Sliding Scale, Dosing Weight 119.3, kg, PRN Blood Glucose Results, Start date: 06/08/17 15:34:00 CDT, Duration: 30 day, Stop date: 07/08/17 14:33:00 DISBURSING OFFICER Notes: (Same as: Humulin R) Roll in palms of hands gently; Do not shake vigorously. "single patientuse only"(Restricted to patients requiring a dose > 60 units)WASTE: F/P - Black; E - Municipal Trash Bin Stable for 28 days at room temperatureExpires in days from Date Start Date: 06/08/17 Stop Date: 06/12/17 Status: DiscontinuedInsulin regular 1 unit, 0.01 mL, Route: SUB-Q, Drug form: SOLN, Sliding Scale, Dosing Weight 119.3, kg, PRN Blood Glucose Results, Start date: 06/08/17 15:34:00 CDT, Duration: 30 day, Stop date: 07/08/17 14:33:00 DISBURSING OFFICER Notes: (Same as: Humulin R) Roll in palms of hands gently; Do not shake vigorously. "single patientuse only"(Restricted to patients requiring a dose > 60 units)WASTE: F/P - Black; E - Municipal Trash Bin Stable for 28 days at room temperatureExpires in days from Date Start Date: 06/08/17 Stop Date: 06/12/17 Status: DiscontinuedketAMINE (ANES) Route: IV, Drug form: INJ, ONCE, Stop date: 06/09/17 8:52:00 CDT Start Date: 06/09/17 Stop Date: 06/09/17 Status: CompletedketOROLAC (ANES) IV, ONCE Start Date: 06/09/17 Stop Date: 06/09/17 Status: Completedlidocaine (ANES) Route: IV, Drug form: INJ, ONCE, Stop date: 06/09/17 8:42:00 CDT Start Date: 06/09/17 Stop Date: 06/09/17 Status: Completedmetoclopramide (ANES) Route: IV, Drug form: INJ, ONCE, Stop date: 06/09/17 8:42:00 CDT Start Date: 06/09/17 Stop Date: 06/09/17 Status: Completedmidazolam (ANES) Route: IV, Drug form: SOLN, ONCE, Stop date: 06/09/17 8:01:00 CDT Start Date: 06/09/17 Stop Date: 06/09/17 Status: CompletedMiraLax oral powder for reconstitution 17 gm, PO, Daily, X 15 day, # 255 gm, 0 Refill(s), Pharmacy: [facility] [id number] Start Date: 06/12/17 Stop Date: 06/27/17 Status: Orderedmorphine Sulfate 2 mg, 0.5 mL, Route: IVP, Drug form: SOLN, Q4H, Dosing Weight 119.3, kg, PRN Pain Score 7-10, Start date: 06/08/17 15:27:00 CDT, Duration: 30 day, Stop date : 07/08/17 15:26:00 DISBURSING OFFICER Notes: (Same as:MORPhine Sulfate) Start Date: 06/08/17 Stop Date: 06/08/17 Status: DiscontinuedNeosporin 1 appl, Route: TOP, QID, Drug form: OINT, Start date: 06/11/17 13:00:00 CDT, Duration: 30 day, Stop date: 07/11/17 9:00:00 DISBURSING OFFICER Start Date: 06/11/17 Stop Date: 06/11/17 Status: Deletedneostigmine (ANES) Route: IV, Drug form: INJ, ONCE, Stop date: 06/09/17 10:44:00 CDT Start Date: 06/09/17 Stop Date: 06/09/17 Status: Completednicotine 14 mg, 1 patch, Route: TOP, Drug form: ERFILM, Q24H, Dosing Weight 118.864, kg, Start date: 06/08/1722:30:00 CDT, Duration: 30 day, Stop date: 07/07/17 22:30: 00 DISBURSING OFFICER Notes: (Same as: Habitrol)"Remove old patch before application of new patch "WASTE: F/P - P Waste Black; E - P Waste Black Start Date: 06/08/17 Stop Date: 06/09/17 Status: Deletednicotine 21 mg, 1 patch, Route: TOP, Drug form: ERFILM, Daily, Dosing Weight 118.864, kg , Start date: 06/11/17 12:00:00 CDT, Duration: 30 day, Stop date: 07/10/17 12:00 :00 DISBURSING OFFICER Notes: (Same as: Habitrol)"Remove old patch before application of new patch "WASTE: F/P - P Waste Black; E - P Waste Black Start Date: 06/11/17 Stop Date: 06/12/17 Status: DiscontinuedNorco 10/325 oral tablet 1 tab, Route: PO, Drug Form: TAB, Dosing Weight 118.864, kg, Q4H, PRN Pain Score 4-6, Start date: 06/11/17 10:29:00 CDT, Duration: 30 day, Stop date: 07/11 10:28:00 DISBURSING OFFICER Notes: Do not exceed 4gm/day of acetaminophen. (Same as: Kelly 325/10) Start Date: 06/11/17 Stop Date: 06/12/17 Status: DiscontinuedNorco 10/325 oral tablet 1 tab, PO, Q4H, PRN Pain Score 4-6, # 30 tab, 0 Refill(s), given to patient Start Date: 06/12/17 Stop Date: 06/26/17 Status: OrderedNorco 5/325 oral tablet 1 tab, Route: PO, Drug Form: TAB, Dosing Weight 118.864, kg, Q4H, PRN Pain Score 4-6, Start date: 06/10/17 9:46:00 CDT, Duration: 30 day, Stop date: 9:45:00 DISBURSING OFFICER Notes: (Same as: Kelly 325/5) Do not exceed 4gm/day of acetaminophen. Start Date: 06/10/17 Stop Date: 06/11/17 Status: Discontinuedomeprazole 20 mg, Route: PO, Drug form: ECCAP, BID-Before Meals, Dosing Weight 118.864, kg , Start date: 06/09/17 7:30:00 CDT, Duration: 30 day, Stop date: 07/08/17 16:30: 00 DISBURSING OFFICER, Substitute Allowed Yes Start Date: 06/09/17 Stop Date: 06/09/17 Status: DeletedOmnipaque 350mg/ml 150 mL, Route: IVP, Drug Form: SOLN, Dosing Weight 118.864, kg, ONCALL, STAT, Start date: 06/08/17 18:22:00 CDT, Duration: 1 doses or times, Dose=2.2ml/kg, Max huiv=[id number] -- "To be infused by Radiology Staff ONLY" Start Date: 06/08/17 Stop Date: 06/08/17 Status: Completedondansetron (ANES) Route: IV, Drug form: INJ, ONCE, Stop date: 06/09/17 10:34:00 CDT Start Date: 06/09/17 Stop Date: 06/09/17 Status: CompletedPhenergan 12.5 mg, 0.5 mL, Route: IVPB, Drug form: INJ, Q4H, Dosing Weight 119.3, kg, PRN Nausea & Vomiting, Start date: 06/08/17 15:27:00 CDT, Duration: 30 day, Stop date: 07/08/17 15:26:00 DISBURSING OFFICER Notes: Do not give IV push. (Same as: Phenergan) Start Date: 06/08/17 Stop Date: 06/12/17 Status: DiscontinuedPlasma-Lyte A PH-7.4 1000 ml INJ (ANES) Route: IV, Total Volume: 1,000, Start date: 06/09/17 7:32:00 CDT, Stop date: 8:32:00 CDT Start Date: 06/09/17 Stop Date: 06/09/17 Status: Completedpropofol (ANES) Route: IV, Drug form: INJ, ONCE, Stop date: 06/09/17 8:42:00 CDT Start Date: 06/09/17 Stop Date: 06/09/17 Status: CompletedProtonix 40 mg, 1 tab, Route: PO, Drug form: ECTAB, BID-Before Meals, Start date: 7:30:00 CDT, Duration: 30 day, Stop date: 07/08/17 16:30:00 DISBURSING OFFICER Start Date: 06/09/17 Stop Date: 06/12/17 Status: DiscontinuedProtonix 40 mg, Route: IVP, Drug form: INJ, Before Breakfast, Dosing Weight 119.3, kg, Priority: NOW, Start date: 06/08/17 16:03:00 CDT, Duration: 30 day, Stop date: 07/08/17 7:30:00 DISBURSING OFFICER Notes: For IV push reconstitute with 10 ml 0.9% sodium chloride and push over 2 minutes. (Same as: Protonix) Start Date: 06/08/17 Stop Date: 06/10/17 Status: Discontinuedremove patch 1 patch, Route: TOP, Drug form: ERFILM, Q24H, Start date: 06/10/17 2:00:00 CDT, Duration: 30 day, Stop date: 07/08/17 21:00:00 DISBURSING OFFICER Notes: WASTE: F/P - P Waste Black; E - P Waste Black Start Date: 06/10/17 Stop Date: 06/11/17 Status: Discontinuedremove patch 1 patch, Route: TOP, Drug form: ERFILM, Daily, Start date: 06/11/17 12:00:00 CDT , Duration: 30 day, Stop date: 07/10/17 12:00:00 DISBURSING OFFICER Notes: Remove old patch before application of new patch.WASTE: F/P - P Waste Black; E - P Waste Black Start Date: 06/11/17 Stop Date: 06/12/17 Status: Discontinuedrocuronium (ANES) Route: IV, Drug form: INJ, ONCE, Stop date: 06/09/17 8:42:00 CDT Start Date: 06/09/17 Stop Date: 06/09/17 Status: CompletedSaline Flush 0.9% 10 ml, Route: IVP, Drug Form: INJ, Dosing Weight 119.3, kg, PRN, PRN Line Flush , Start date: 06/08/17 15:27:00 CDT, Duration: 30 day, Stop date: 07/08/17 14:26 :00 DISBURSING OFFICER Notes: (Same as: BD Posiflush) Start Date: 06/08/17 Stop Date: 06/12/17 Status: DiscontinuedSenna S oral tablet 2 tab, PO, Bedtime, X 15 day, # 30 tab, 0 Refill(s), Pharmacy: [facility] [id number] Start Date: 06/12/17 Stop Date: 06/27/17 Status: Orderedsimethicone 80 mg, 1 tab, Route: CHEW, Drug form: CHEWTAB, QID, Dosing Weight 119.3, kg, PRN Gas, Priority: NOW,Start date: 06/08/17 16:04:00 CDT, Duration: 30 day, Stop date: 07/08/17 16:03:00 DISBURSING OFFICER Notes: (Same as: Mylicon) Start Date: 06/08/17 Stop Date: 06/12/17 Status: Discontinuedsodium bicarbonate (ANES) Route: IV, Drug form: INJ, ONCE, Stop date: 06/09/17 8:42:00 CDT Start Date: 06/09/17 Stop Date: 06/09/17 Status: Completedsodium chloride 0.9% 1000 ml INJ 1,000 mL 1,000 mL, Rate: 150 ml/hr, Infuse over: 6.7 hr, Route: IV, Dosing Weight 119.3 kg, Total Volume: 1,000, Start date: 06/08/17 15:38:00 CDT, Duration: 30 day, Stop date: 07/08/17 15:37:00 DISBURSING OFFICER Start Date: 06/08/17 Stop Date: 06/09/17 Status: Discontinuedsuccinylcholine (ANES) Route: IV, Drug form: INJ, ONCE, Stop date: 06/09/17 8:42:00 CDT Start Date: 06/09/17 Stop Date: 06/09/17 Status: Completedtramadol 100 mg, 2 tab, Route: PO, Drug form: TAB, Q6H, Dosing Weight 118.864, kg, PRN Pain Score 1-3, Start date: 06/11/17 10:30:00 CDT, Duration: 30 day, Stop date: 07/11/17 10:29:00 DISBURSING OFFICER Notes: Not to exceed 400mg/day. (Same As: Ultram) Start Date: 06/11/17 Stop Date: 06/12/17 Status: Discontinuedtramadol 50 mg oral tablet 50 mg, 1 tab, Route: PO, Drug form: TAB, Q4H, Dosing Weight 118.864, kg, PRN Pain Score 1-3, Start date: 06/10/17 9:46:00 CDT, Duration: 30 day, Stop date: 07/10/17 9:45:00 DISBURSING OFFICER Notes: Not to exceed 400mg/day. (Same As: Ultram) Start Date: 06/10/17 Stop Date: 06/11/17 Status: Discontinuedtramadol 50 mg oral tablet 100 mg=2 tab, PO, Q6H, PRN Pain Score 1-3, X 7 day, # 56 tab, 0 Refill(s) Start Date: 06/12/17 Stop Date: 06/19/17 Status: OrderedZosyn 3.375 gm, Route: IVPB, Drug form: PDR/INJ, ABXQ8H, Dosing Weight 118.864, kg, CrCl >=20 ml/min infuse over 4 hours, Priority: NOW, Start date: 06/08/17 21:17: 00 CDT, Duration: 7 day, Stop date: 06/15/17 13:17:00 CDT, ABX Indication: Intra -abdominal I... Notes: (Same as: Zosyn)Dosing based on Piperacillin component MEDICATION WASTE Product Size: 3375 mgProduct Wasted: __0_ mg Start Date: 06/08/17 Stop Date: 06/10/17 Status: Discontinued Results BLOOD BANK RESULTS Most recent to oldest [Reference Range]: 1 2 3 ABO/Rh A POS *Unknown* (06/08/17 6:25 PM) Antibody Scrn Negative (06/08/17 6:25 PM) ELECTROLYTES Most recent to oldest 1 2 3 [Reference Range]: Sodium Lvl [135-145 mEq/L] 139 mEq/L 138 mEq/L 141 mEq/L (06/12/17 3:11 AM) (06/11/17 5:05 AM) (06/10/17:17 AM) Potassium Lvl [3.5-5.1 3.9 mEq/L 3.6 mEq/L 3.6 mEq/L mEq/L] (06/12/17 3:11 AM) (06/11/17 5:05 AM) (06/10/17:17 AM) Chloride Lvl [95-109 mEq/L] 104 mEq/L 105 mEq/L 106 mEq/L (06/12/17 3:11 AM) (06/11/17 5:05 AM) (06/10/17 6:17 AM) CO2 [24-32 mEq/L] 26 mEq/L 23 mEq/L 25 mEq/L (06/12/17 3:11 AM) *LOW* (06/10/17:17 AM) (06/11/17 5:05 AM) AGAP [10.0-20.0 mEq/L] 12.9 mEq/L 13.6 mEq/L 13.6 mEq/L (06/12/17 3:11 AM) (06/11/17 5:05 AM) (06/10/17 6:17 AM) CHEM PANEL Most recent to oldest 1 2 3 [Reference Range]: Creatinine Lvl [0.50-1.40 0.71 mg/dL 0.75 mg/dL 0.88 mg/dL mg/dL] (06/12/17 3:11 AM) (06/11/17 5:05 AM) (06/10/17 6:17 AM) eGFR 123 mL/min/1.73m2 1 121 mL/min/1.73m2 2 113 mL/min/1.73m2 3 *NA* *NA* *NA* (06/12/17 3:11 AM) (06/11/17 5:05 AM) (06/10/17 6:17 AM) BUN [7-22 mg/dL] 8 mg/dL 5 mg/dL 11 mg/dL (06/12/17 3:11 AM) *LOW* (06/10/17 6:17 AM) (06/11/17 5:05 AM) Glucose Lvl [70-99 mg/dL] 85 mg/dL 80 mg/dL 157 mg/dL (06/12/17 3:11 AM) (06/11/17 5:05 AM) *HI* (06/10/17 6:17 AM) Total Protein [6.4-8.4 7.4 g/dL 7.1 g/dL 6.8 g/dL g/dL] (06/12/17 3:11 AM) (06/11/17 5:05 AM) (06/10/17 6:17 AM) Albumin Lvl [3.5-5.0 g/dL] 3.3 g/dL 3.4 g/dL 3.3 g/dL *LOW* *LOW* *LOW* (06/12/17 3:11 AM) (06/11/17 5:05 AM) (06/10/17 6:17 AM) Globulin [2.7-4.2 g/dL] 4.1 g/dL 3.7 g/dL 3.5 g/dL (06/12/17 3:11 AM) (06/11/17 5:05 AM) (06/10/17 6:17 AM) A/G Ratio [0.7-1.6] 0.8 0.9 0.9 (06/12/17 3:11 AM) (06/11/17 5:05 AM) (06/10/17 6:17 AM) Calcium Lvl [8.5-10.5 9.0 mg/dL 8.6 mg/dL 8.2 mg/dL mg/dL] (06/12/17 3:11 AM) (06/11/17 5:05 AM) *LOW* (06/10/17 6:17 AM) Phosphorus [2.5-4.5 mg/dL] 3.9 mg/dL 2.1 mg/dL 2.3 mg/dL (06/12/17 3:11 AM) *LOW* *LOW* (06/11/17 5:05 AM) (06/10/17 6:17 AM) Magnesium Lvl [1.8-2.4 2.2 mg/dL 2.2 mg/dL 2.2 mg/dL mg/dL] (06/12/17 3:11 AM) (06/11/17 5:05 AM) (06/10/17 6:17 AM) ALT [0-65 unit/L] 188 unit/L 209 unit/L 291 unit/L *HI* *HI* *HI* (06/12/17 3:11 AM) (06/11/17 5:05 AM) (06/10/17 6:17 AM) AST [0-37 unit/L] 69 unit/L 41 unit/L 56 unit/L *HI* *HI* *HI* (06/12/17 3:11 AM) (06/11/17 5:05 AM) (06/10/17 6:17 AM) Alk Phos [39-136 unit/L] 125 unit/L 138 unit/L 152 unit/L (06/12/17 3:11 AM) *HI* *HI* (06/11/17 5:05 AM) (06/10/17 6:17 AM) Bili Total [0.2-1.3 mg/dL] 1.1 mg/dL 0.8 mg/dL 0.8 mg/dL (06/12/17 3:11 AM) (06/11/17 5:05 AM) (06/10/17 6:17 AM) Bili Direct [0.0-0.3 0.1 mg/dL 0.1 mg/dL 0.2 mg/dL mg/dL] (06/12/17 3:11 AM) (06/11/17 5:05 AM) (06/10/17 6:17 AM) Bili Indirect [0.0-1.0 1.0 mg/dL 0.7 mg/dL 0.6 mg/dL mg/dL] (06/12/17 3:11 AM) (06/11/17 5:05 AM) (06/10/17 6:17 AM) Amylase Lvl [25-115 94 unit/L 435 unit/L 2135 unit/L unit/L] (06/10/17 6:17 AM) *HI* *HI* (06/09/17 4:18 AM) (06/08/17 4:27 PM) Lipase Lvl [73-393 unit/L] 337 unit/L 3772 unit/L 69239 unit/L (06/10/17 6:17 AM) *HI* *HI* (06/09/17 4:18 AM) (06/08/17 4:27 PM) Lactic Acid Lvl [0.5-2.2 0.5 mMol/L mMol/L] (06/08/17 6:25 PM) 1Result Comment: The eGFR is calculated using the CKD-EPI formula. In most young , healthy individualsthe eGFR will be >90 mL/min/1.73m2. The eGFR declines with age. An eGFR of 60-89 may be normal in some populations, particularly the elderly, for whom the CKD-EPI formula has not been extensively validated. Use of the eGFR is not recommended in the following populations: Individuals with unstable creatinine concentrations, including patients and those with serious co-morbid conditions. Patients with extremes in muscle mass or diet. The data above are obtained from the [employer] ( [employer]) which additionally recommends that when the eGFR is used in patients with extremes of body mass index for purposesof drug dosing, the eGFR should be multiplied by the estimated BMI.2Result Comment: The eGFR is calculated using the CKD-EPI formula. In most young, healthy individualsthe eGFR will be >90 mL/ min/1.73m2. The eGFR declines with age. An eGFR of 60-89 may be normal in some populations, particularly the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
--- OUTSIDE RECORDS SUMMARY | 2018-03-30 23:24 | XMS REPORT | Summary of Care ---
:1985 Author Organization [facility] Address [address] [place] [address]- Encounter HQ Danielito(FIN) [phone] Date(s): 05/21/17 - 05/22/17 [facility] [id number] [place] [phone] Discharge Disposition: Home or Self Care Attending Physician: Boy Olivera DO Admitting Physician: Boy Olivera DO Vital Signs Most recent to oldest 1 2 3 [Reference Range]: Height 182.88 cm 182.88 cm (05/21/17 8:50 PM) (05/21/17 1:16 PM) Temperature Oral [96.4-99.1 97.9 DegF 98.9 DegF 97.8 DegF DegF] (05/22/17 11:30 AM) (05/22/17 8:00 AM) (05/22/17 4:00 AM) Blood Pressure [90-140/60-90 124/82 mmHg 107/68 mmHg 116/74 mmHg mmHg] (05/22/17 11:30 AM) (05/22/17 8:00 AM) (05/22/17 4:00 AM) Respiratory Rate [14-20 18 BRMIN 20 BRMIN 20 BRMIN BRMIN] (05/22/17 8:00 AM) (05/22/17 4:00 AM) (05/22/17 12:00 AM) Peripheral Pulse Rate [60-100 79 bpm 64 bpm 70 bpm bpm] (05/22/17 11:30 AM) (05/22/17 8:00 AM) (05/22/17 4:00 AM) Weight 121.818 kg 120.455 kg (05/21/17 8:50 PM) (05/21/17 1:16 PM) Body Mass Index 36.42 m2 36.02 m2 (05/21/17 8:50 PM) (05/21/17 1:16 PM) Problem List Condition Effective Dates Status Health Status Informant Feeding catheter, 12/15/09 - 12/21/09 Resolved device(Confirmed)1 Pain(Confirmed) Active Rib pain(Confirmed) Active Tracheostomy in place(Confirmed) Resolved 1inserted ENDO [place] Allergies, Adverse Reactions, Alerts Substance Reaction Severity Status NKDA Active Medications acetaminophen 650 mg, 2 tab, Route: PO, Drug form: TAB, Q4H, Dosing Weight 120.455, kg, PRN Pain 1-3/Temp > 100.4 F, Start date: 05/21/17 16:11:00 CDT, Duration: 30 day, Stop date: 06/20/17 16:10:00 CDT Notes: Do not exceed 4 gm/day. (Same as: Tylenol) Start Date: 05/21/17 Stop Date: 05/22/17 Status: Discontinuedacetaminophen-hydrocodone 325 mg-5 mg oral tablet 1 tab, Route: PO, Drug Form: TAB, Dosing Weight 120.455, kg, Q4H, PRN Pain Score 4-6, Start date: 05/21/17 16:11:00 CDT, Duration: 30 day, Stop date: 06/20 16:10:00 CDT Notes: (Same as: [place] 325/5) Do not exceed 4gm/day of acetaminophen. Start Date: 05/21/17 Stop Date: 05/22/17 Status: Discontinueddiazepam 5 mg, 1 tab, Route: PO, Drug form: TAB, ONCE, Dosing Weight 121.818, kg, PRN Anxiety, Start date: 05/21/17 22:23:00 CDT Notes: (Same as: Valium) Start Date: 05/21/17 Stop Date: 05/21/17 Status: Completeddiazepam 5 mg, 1 tab, Route: PO, Drug form: TAB, Bedtime, Dosing Weight 121.818, kg, Start date: 05/22/17 21:00:00 CDT, Duration: 30 day, Stop date: 06/20/17 21:00: 00 CDT Notes: (Same as: Valium) Start Date: 05/22/17 Stop Date: 05/22/17 Status: Canceleddiazepam 5 mg, PO, Bedtime, 0 Refill(s) Start Date: 05/21/17 Status: Orderedmorphine Sulfate 4 mg, Route: IVP, ONCE, Dosing Weight 120.455, kg, Start date: 05/21/17 15:35: 00 CDT, Stop date: 05/21/17 15:35:00 CDT Start Date: 05/21/17 Stop Date: 05/21/17 Status: Completedmorphine Sulfate 2 mg, 1 mL, Route: IVP, Drug form: SOLN, Q4H, Dosing Weight 120.455, kg, PRN Pain Score 7-10, Start date: 05/21/17 16:11:00 CDT, Duration: 30 day, Stop date : 06/20/17 16:10:00 CDT Start Date: 05/21/17 Stop Date: 05/22/17 Status: Discontinuedomeprazole See Instructions, Omeprazole with magnesium 20.6 PO Daily, 0 Refill(s) Start Date: 05/21/17 Status: Orderedomeprazole Route: PO, Daily, Dosing Weight 121.818, kg, Start date: 05/23/17 9:00:00 CDT, Duration: 30 day, Stop date: 06/21/17 9:00:00 CDT Start Date: 05/23/17 Stop Date: 05/22/17 Status: Deletedondansetron 4 mg, 2 mL, Route: IVP, Drug form: INJ, ONCE, Dosing Weight 120.455, kg, Priority: STAT, Start date:05/21/17 14:13:00 CDT, Stop date: 05/21/17 14:13:00 CDT Notes: (Same as: Renay) MEDICATION WASTE Product Size: 4 mgProduct Wasted: ___ mg Start Date: 05/21/17 Stop Date: 05/21/17 Status: Completedondansetron 4 mg, 2 mL, Route: IVP, Drug form: INJ, Q6H, Dosing Weight 120.455, kg, PRN Nausea & Vomiting, Start date: 05/21/17 16:11:00 CDT, Duration: 30 day, Stop date: 06/20/17 16:10:00 CDT Notes: (Same as: Zofran) MEDICATION WASTE Product Size: 4 mgProduct Wasted: ___ mg Start Date: 05/21/17 Stop Date: 05/22/17 Status: DiscontinuedProtonix 40 mg, 1 tab, Route: PO, Drug form: ECTAB, Before Breakfast, Start date: 7:30:00 CDT, Duration: 30 day, Stop date: 06/21/17 7:30:00 CDT Notes: Tablet should not be chewed or crushed.(Same as: Protonix) Start Date: 05/23/17 Stop Date: 05/22/17 Status: CanceledSodium Chloride 0.9% (Bolus) IV 1,000 mL, 1,000 ml/hr, Infuse Over: 1 hr, Route: IV, 1,000, Drug form: INJ, ONCE , Priority: STAT, Dosing Weight 120.455 kg, Start date: 05/21/17 15:35:00 CDT, Duration: 1 doses or times, Stop date: 05/21/17 15:35:00 CDT Start Date: 05/21/17 Stop Date: 05/21/17 Status: CompletedSodium Chloride 0.9% (Bolus) IV 1,000 mL, 1000 ml/hr, Infuse Over: 1 hr, Route: IV, 1,000, Drug form: INJ, ONCE , Priority: STAT, Dosing Weight 120.455 kg, Start date: 05/21/17 14:13:00 CDT, Duration: 1 doses or times, Stop date: 05/21/17 14:13:00 CDT Start Date: 05/21/17 Stop Date: 05/21/17 Status: CompletedTylenol with Codeine #3 oral tablet 1 - 2 tab, PO, Q4H, PRN Pain, X 2 day, # 20 tab, 0 Refill(s) Start Date: 05/22/17 Stop Date: 05/24/17 Status: CompletedZosyn + sodium chloride 0.9% INJ 100 mL 3.375 gm, Route: IVPB, ONCE, Dosing Weight 120.455, kg, Priority: STAT, Start date: 05/21/17 15:50:00 CDT, Duration: 1 doses or times, Stop date: 05/21/17 15: 50:00 CDT, ABX Indication: Surgical Prophylaxis Notes: (Same as: Zosyn)Dosing based on Piperacillin component MEDICATION WASTE Product Size: 3375 mgProduct Wasted: ___ mg Start Date: 05/21/17 Stop Date: 05/21/17 Status: CompletedZyrTEC 10 mg, PO, Daily, 0 Refill(s) Start Date: 05/21/17 Status: OrderedZyrTEC 10 mg, 2 tab, Route: PO, Drug form: TAB, Daily, Dosing Weight 121.818, kg, Start date: 05/23/17 9:00:00 CDT, Duration: 30 day, Stop date: 06/21/17 9:00:00 CDT Notes: (Same As: Zyrtec) Start Date: 05/23/17 Stop Date: 05/22/17 Status: Canceled Results ELECTROLYTES Most recent to oldest [Reference Range]: 1 2 Sodium Lvl [135-145 mEq/L] 139 mEq/L 139 mEq/L (05/22/17 5:25 AM) (05/21/17 3:08 PM) Potassium Lvl [3.5-5.1 mEq/L] 3.5 mEq/L 3.7 mEq/L (05/22/17 5:25 AM) (05/21/17 3:08 PM) Chloride Lvl [95-109 mEq/L] 105 mEq/L 105 mEq/L (05/22/17 5:25 AM) (05/21/17 3:08 PM) CO2 [24-32 mEq/L] 24 mEq/L 26 mEq/L (05/22/17 5:25 AM) (05/21/17 3:08 PM) AGAP [10.0-20.0 mEq/L] 13.5 mEq/L 11.7 mEq/L (05/22/17 5:25 AM) (05/21/17 3:08 PM) CHEM PANEL Most recent to oldest [Reference Range]: 1 2 Creatinine Lvl [0.50-1.40 mg/dL] 0.76 mg/dL 0.86 mg/dL (05/22/17 5:25 AM) (05/21/17 3:08 PM) eGFR 120 mL/min/1.73m2 1 114 mL/min/1.73m2 2 *NA* *NA* (05/22/17 5:25 AM) (05/21/17 3:08 PM) BUN [7-22 mg/dL] 10 mg/dL 12 mg/dL (05/22/17 5:25 AM) (05/21/17 3:08 PM) B/C Ratio [6-25] 13 14 (05/22/17 5:25 AM) (05/21/17 3:08 PM) Glucose Lvl [70-99 mg/dL] 97 mg/dL 101 mg/dL (05/22/17 5:25 AM) *HI* (05/21/17 3:08 PM) Total Protein [6.4-8.4 g/dL] 7.4 g/dL 8.1 g/dL (05/22/17 5:25 AM) (05/21/17 3:08 PM) Albumin Lvl [3.5-5.0 g/dL] 3.5 g/dL 3.9 g/dL (05/22/17 5:25 AM) (05/21/17 3:08 PM) Globulin [2.7-4.2 g/dL] 3.9 g/dL 4.2 g/dL (05/22/17 5:25 AM) (05/21/17 3:08 PM) A/G Ratio [0.7-1.6] 0.9 0.9 (05/22/17 5:25 AM) (05/21/17 3:08 PM) Calcium Lvl [8.5-10.5 mg/dL] 8.7 mg/dL 8.9 mg/dL (05/22/17 5:25 AM) (05/21/17 3:08 PM) ALT [0-65 unit/L] 82 unit/L 52 unit/L *HI* (05/21/17 3:08 PM) (05/22/17 5:25 AM) AST [0-37 unit/L] 50 unit/L 42 unit/L *HI* *HI* (05/22/17 5:25 AM) (05/21/17 3:08 PM) Alk Phos [39-136 unit/L] 91 unit/L 92 unit/L (05/22/17 5:25 AM) (05/21/17 3:08 PM) Bili Total [0.2-1.3 mg/dL] 1.2 mg/dL 0.6 mg/dL (05/22/17 5:25 AM) (05/21/17 3:08 PM) Lipase Lvl [73-393 unit/L] 185 unit/L (05/21/17 3:08 PM) 1Result Comment: The eGFR is calculated [...] eGFR should be multiplied by the estimated BMI.URINE AND STOOL Most recent to oldest [Reference Range]: 1 2 UA Turbidity [Clear] Clear (05/21/17 3:08 PM) UA Color [Yellow] Yellow *NA* (05/21/17 3:08 PM) UA pH [5.0-8.0] 6.0 (05/21/17 3:08 PM) UA Spec Grav [<=1.030] 1.010 (05/21/17 3:08 PM) UA Glucose [Negative mg/dL] Negative mg/dL (05/21/17 3:08 PM) UA Blood [Negative] Negative (05/21/17 3:08 PM) UA Ketones [Negative mg/dL] Negative mg/dL *NA* (05/21/17 3:08 PM) UA Protein [Negative mg/dL] Negative mg/dL (05/21/17 3:08 PM) UA Urobilinogen [0.1-1.0 EU/dL] 1.0 EU/dL (05/21/17 3:08 PM) UA Bili [Negative] Negative *NA* (05/21/17 3:08 PM) UA Leuk Est [Negative] Negative (05/21/17 3:08 PM) UA Nitrite [Negative] Negative (05/21/17 3:08 PM) UA WBC [None Seen /HPF] 0-2 /HPF (05/21/17 3:08 PM) UA RBC [0-2] None Seen (05/21/17 3:08 PM) UA Bacteria Rare *NA* (05/21/17 3:08 PM) UA Sq Epi [Few] None Seen (05/21/17 3:08 PM) HEMATOLOGY Most recent to oldest [Reference Range]: 1 2 WBC [3.7-10.4 K/CMM] 6.7 K/CMM 9.4 K/CMM (05/22/17 5:25 AM) (05/21/17 3:08 PM) RBC [4.70-6.10 M/CMM] 4.88 M/CMM 5.23 M/CMM (05/22/17 5:25 AM) (05/21/17 3:08 PM) Hgb [14.0-18.0 g/dL] 15.2 g/dL 16.2 g/dL (05/22/17 5:25 AM) (05/21/17 3:08 PM) Hct [42.0-54.0 %] 42.6 % 45.8 % (05/22/17 5:25 AM) (05/21/17 3:08 PM) MCV [80.0-94.0 fL] 87.2 fL 87.6 fL (05/22/17 5:25 AM) (05/21/17 3:08 PM) MCH [27.0-31.0 pg] 31.1 pg 30.9 pg *HI* (05/21/17 3:08 PM) (05/22/17 5:25 AM) MCHC [32.0-36.0 g/dL] 35.7 g/dL 35.3 g/dL (05/22/17 5:25 AM) (05/21/17 3:08 PM) RDW [11.5-14.5 %] 13.3 % 13.8 % (05/22/17 5:25 AM) (05/21/17 3:08 PM) Platelet [133-450 K/CMM] 231 K/CMM 237 K/CMM (05/22/17:25 AM) (05/21/17 3:08 PM) MPV [7.4-10.4 fL] 8.3 fL 8.3 fL (05/22/17:25 AM) (05/21/17 3:08 PM) Segs [45.0-75.0 %] 76.4 % 80.1 % *HI* *HI* (05/22/17 5:25 AM) (05/21/17 3:08 PM) Lymphocytes [20.0-40.0 %] 14.6 % 12.0 % *LOW* *LOW* (05/22/17 5:25 AM) (05/21/17 3:08 PM) Monocytes [2.0-12.0 %] 6.3 % 6.1 % (05/22/17 5:25 AM) (05/21/17 3:08 PM) Eosinophils [0.0-4.0 %] 2.1 % 1.3 % (05/22/17 5:25 AM) (05/21/17 3:08 PM) Basophils [0.0-1.0 %] 0.6 % 0.5 % (05/22/17 5:25 AM) (05/21/17 3:08 PM) Segs-Bands # [1.5-8.1 K/CMM] 5.1 K/CMM 7.6 K/CMM (05/22/17:25 AM) (05/21/17 3:08 PM) Lymphocytes # [1.0-5.5 K/CMM] 1.0 K/CMM 1.1 K/CMM (05/22/17 5:25 AM) (05/21/17 3:08 PM) Monocytes # [0.0-0.8 K/CMM] 0.4 K/CMM 0.6 K/CMM (05/22/17 5:25 AM) (05/21/17 3:08 PM) Eosinophils # [0.0-0.5 K/CMM] 0.1 K/CMM 0.1 K/CMM (05/22/17 5:25 AM) (05/21/17 3:08 PM) Immunizations No data available for this [...] Smoking Cessation Counseling Yes Assessment and Plan No data available for this section
[2018-03-30 23:50] LABS: Absolute Lymphocytes (CBC) 1.1 K/uL (0.7-4.9); Absolute Monocytes 0.4 K/uL (0.1-1.3); Absolute Neutrophil 5.2 K/uL (1.8-8.0); Eosinophils % 2.4 % (0-4.4); Hematocrit 44.1 % (39.6-49.0); Lymphocytes % 16.4 % (15.3-44.8); MCH 30.8 pg (27.0-35.0); MCV 87.8 fL (80-100); MPV 8.3 fL (7.6-11.3); Monocytes % 5.5 % (3.3-12.3); RBC Red Blood Cell Count 5.03 M/uL (4.33-5.43)
[2018-03-31] MEDS ORDERED: NA CHLORIDE 0.9% 1,000 ML ONE (00:02)
[2018-03-31 00:11] LABS: ALT/SGPT 51 U/L (12-78); AST/SGOT 18 U/L (15-37); Albumin 3.5 g/dL (3.4-5.0); Alkaline Phosphatase 92 U/L (45-117); BUN Blood Urea Nitrogen 9 mg/dL (7-18); Bicarbonate 28 mmol/L (21-32); Bilirubin Direct 0.1 mg/dL (0-0.2); Bilirubin Total 0.4 mg/dL (0.2-1.0); CKMB Creatine Kinase MB < 1.0 ng/mL (0.3-3.6); Creatine Phosphokinase 91 U/L (39-308); Glucose Level 132 mg/dL (74-106); Lipase 238 U/L (73-393); Magnesium 2.1 mg/dL (1.8-2.4); NT PRO-BNP 24 pg/mL (<125); Protein, Total 7.9 g/dL (6.4-8.2); Sodium Level 141 mmol/L (136-145)
[2018-03-31] MEDS ORDERED: METHYLPREDNISOLONE 125 MG INJ ONE (00:39)
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
--- NOTE | 2018-03-31 07:26 | EKG ---
Test Date: 2018-03-30 Test Time: 23:42:44 Hydrotechnical Specialist: YOSELIN MEASUREMENT RESULTS: Intervals: Rate: 116 NV: 152 QRSD: 112 QT: 334 QTc: 464 Stollings: P: 47 NV: 152 QRS: -81 T: 15 INTERPRETIVE STATEMENTS: Sinus tachycardia with occasional premature ventricular complexes Left anterior fascicular block Possible Anterolateral infarct, age undetermined Incomplete right bundle branch block Abnormal ECG Compared to ECG 01/17/2018 11:18:24 Ventricular premature complex(es) now present Myocardial infarct finding still present Electronically Signed On 03-31-18 07:25:55 CDT by Aashish Cordero
--- NOTE | 2018-03-31 11:37 | RAD REPORT ---
EXAM DESCRIPTION: RAD - Chest Pa And Lat (2 Views) - 03/31/2018 12:26 am CLINICAL HISTORY: Cough;Dyspnea Chest pain. COMPARISON: Chest Single View dated 01/17/2018; ABDOMEN ACUTE SERIES dated 02/11/2015 FINDINGS: The lungs are clear. The heart is normal in size. No displaced fractures. IMPRESSION: No acute or concerning finding suspected.
== END 2018-03-31 01:29 | disposition home or self-care (01) ==
LOC: ER 23:19
DX: R06.00 Dyspnea, unspecified (principal); E86.0 Dehydration; I10 Essential (primary) hypertension; F41.9 Anxiety disorder, unspecified; Z72.0 Tobacco use; Z88.5 Allergy status to narcotic agent
CPT/HCPCS: 36415; 71046; 80048; 80076; 82550; 82553; 83690; 83735; 83880; 84484; 85025; 85379; 86308; 87040; 93005; 96361; 96374; 99285; J2930; J7030

== ENCOUNTER 2018-08-22 04:40 | Emergency (ER) | payer SELFPAY ==
--- OUTSIDE RECORDS SUMMARY | 2018-08-22 04:44 | XMS REPORT | Continuity of Care Document ---
:1985 Author Organization Interface Problems Problem Status Onset Classification Date Comments Source Date Reported FOLLOW UP Active 06/13/[address] ACUTE Active 06/08/20 [facility] GALLBLADDER [address] [place] [address] CONSULT FOR Active 05/23/20 [facility] GALLSTONES [address] [place] [address] ACUTE Active 05/21/20 [facility] CHOLECYSTITIS [place] STONE IN Active 05/21/20 [facility] GALBLADDER [address] [place] Feeding Resolved 12/16/19 Problem 06/24/2017 inserted [facility] catheter, 10 ENDO [place] lozenge maker<sup>1</king [place], p> [place] Morbid obesity Active Problem 06/24/2017 [facility] Pain Active Problem 06/24/2017 [facility] Rib pain Active Problem 06/24/2017 [facility] Tracheostomy in Resolved Problem 06/24/2017 [facility] ACUTE Active [facility] CHOLECYSTITIS [place] Medications Medication Details Route Status Patient Ordering Order Source Instructions Provider Date Bisacodyl 10 mg, 1 supp, Inactive [facility] Route: CT, Drug 2017 Medical form: SUPP, Center Daily, Dosing Weight 118.864, kg, PRN Constipation, Start date: 06/12/17 10:27:00 CDT, Duration: 30 day, Stop date: 07/12/17 10:26:00 CSTNotes: (Same As: Dulcolax, Bisco-Lax) Bacitracin 0.5 1 appl, TOP, Active [facility] UNT/MG / QID, # 30 gm, 0 2017 [facility] Polymyxin B 10 Refill(s), [place] UNT/MG Topical Pharmacy: [facility] [id number] tramadol 100 mg=2 tab, Active [place] hydrochloride 50 PO, Q6H, PRN 2017 Medical MG Oral Tablet Pain Score 1-3, [place] X 7 day, # 56 tab, 0 Refill(s) Acetaminophen 325 1 tab, PO, Q4H, Active 10/16/ [facility] MG / Hydrocodone PRN Pain Score 2017 Medical Bitartrate 10 MG 4-6, # 30 tab, 0 Center Oral Tablet Refill(s), given [Alma 10/325] to patient Margarito S oral 2 tab, PO, Active [place] tablet Bedtime, X 15 2017 Medical day, # 30 tab, 0 Center Refill(s), Pharmacy: [facility] [id number] POLYETHYLENE 17 gm, PO, Active [place] GLYCOL 3350 142 Daily, X 15 day, 2017 Medical MG/ML Oral # 255 gm, 0 Center Solution Refill(s), [Miralax] Pharmacy: [facility] [id number] bacitracin-polymy 1 appl, Route: No Longer [place] evans B topical TOP, QID, Drug Active 2016 Medical form: OINT, Center Start date: 06/11/17 13:00:00 CDT, Duration: 30 day, Stop date: 07/11/17 9:00:00 CSTNotes: (Same As: Polysporin) Neosporin 1 appl, Route: Inactive [place] TOP, QID, Drug 2016 Medical form: OINT, Center Start date: 06/11/17 13:00:00 CDT, Duration: 30 day, Stop date: 07/11/17 9:00:00 COURT DEPUTY remove patch 1 patch, Route: No Longer [facility], Drug form: Active 2017 Medical ERFILM, Daily, Center Start date: 06/11/17 12:00:00 CDT, Duration: 30 day, Stop date: 07/10/17 12:00:00 CSTNotes: Remove old patch before application of new patch. WASTE: F/P - P Waste Black; E - P Waste Black Nicotine 21 mg, 1 patch, No Longer [place] Route: TOP, Drug Active 2016 Medical form: ERFILM, Center Daily, Dosing Weight 118.864, kg, Start date: 06/11/17 12:00:00 CDT, Duration: 30 day, Stop date: 07/10/17 12:00:00 CSTNotes: (Same as: Habitrol) "Remove old patch before application of new patch" WASTE: F/P - P Waste Black; E - P Waste Black Habitrol 21 mg, Route: Inactive [place] TOP, Drug form: 2017 Medical ERFILM, Q24H, Center Dosing Weight 118.864, kg, Start date: 06/11/17 11:00:00 CDT, Duration: 30 day, Stop date: 07/10/17 11:00:[address] DEPUTY Dulcolax Laxative 10 mg, 2 tab, No Longer [place] Route: PO, Drug Active 2016 Medical form: ECTAB, Center Daily, Dosing Weight 118.864, kg, PRN Constipation, Start date: 06/11/17 10:31:00 CDT, Duration: 30 day, Stop date: 07/11/17 10:30:00 CSTNotes: (Same As: Dulcolax, Correctol) (Do Not Crush) "Do Not Crush" Tramadol 100 mg, 2 tab, No Longer [place] Route: PO, Drug Active 2016 Medical form: TAB, Q6H, Center Dosing Weight 118.864, kg, PRN Pain Score 1-3, Start date: 06/11/17 10:30:00 CDT, Duration: 30 day, Stop date: 07/11/17 10:29:00 CSTNotes: Not to exceed 400mg/day. (Same As: Ultram) Acetaminophen 325 1 tab, Route: No Longer [place] MG / Hydrocodone PO, Drug Form: Active 2016 Medical Bitartrate 10 MG TAB, Dosing Center Oral Tablet Weight 118.864, [Alma 10/325] kg, Q4H, PRN Pain Score 4-6, Start date: 06/11/17 10:29:00 CDT, Duration: 30 day, Stop date: 07/11/17 10:28:00 CSTNotes: Do not exceed 4gm/day of acetaminophen. (Same as: Alma 325/10) Docusate Sodium 100 mg, 1 cap, No Longer [place] 100 MG Oral Route: PO, Drug Active 2016 Medical Capsule [Colace] form: CAP, BID, Center Dosing Weight 118.864, kg, Start date: 06/10/17 17:00:00 CDT, Duration: 30 day, Stop date: 07/10/17 9:00:00 CSTNotes: (Same as: Colace) (Do Not Crush) Cetirizine 10 mg, 1 tab, No Longer [place] Route: PO, Drug Active 2016 Medical form: [...] Acetaminophen 325 1 tab, Route: No Longer [place] MG / Hydrocodone PO, Drug Form: Active 2016 Medical Bitartrate 5 MG TAB, Dosing Center Oral Tablet Weight 118.864, [Alma 5/325] kg, Q4H, PRN Pain Score 4-6, Start date: 06/10/17 9:46:00 CDT, Duration: 30 day, Stop date: 07/10/17 9:45:00 CSTNotes: (Same as: Alma 325/5) Do not exceed 4gm/day of acetaminophen. heparin 5,000 unit, 1 No Longer [place] mL, Route: Active 2016 Medical SUB-Q, Drug Center form: INJ, Q8H, Dosing Weight 118.864, kg, Start date: 06/10/17 8:00:00 CDT, Duration: 30 day, Stop date: 07/10/17 0:00:00 CSTNotes: porcine heparin remove patch 1 patch, Route: No Longer [place] TOP, Drug form: Active 2017 Medical ERFILM, Q24H, Center Start date: 06/10/17 2:00:00 CDT, Duration: 30 day, Stop date: 07/08/17 21:00:00 CSTNotes: WASTE: F/P - P Waste Black; E - P Waste Black D5W 1/2NS 1,000 1,000 mL, Rate: No Longer [facility] mL 50 ml/hr, Infuse Active [facility] Medical over: 20 hr, Center Route: IV, Dosing Weight 118.864 kg, Total Volume: 1,000, Start date: 06/09/17 13:50:00 CDT, Stop date: 07/09/17 13:49:00 [address] DEPUTY glycopyrrolate Route: IV, Drug Inactive [place] (ANES) form: INJ, ONCE, 2016 Medical Stop date: [place] 06/09/17 10:44:00 CDT neostigmine Route: IV, Drug Inactive [place] (ANES) form: INJ, ONCE, 2016 Medical Stop date: [place] 06/09/17 10:44:00 CDT ondansetron Route: IV, Drug Inactive [place] (ANES) form: INJ, ONCE, 2016 Medical Stop date: [place] 06/09/17 10:34:00 CDT ketOROLAC (ANES) IV, ONCE Inactive [place] [address] [place] [address] hydromorphone Route: IV, Drug Inactive [place] (ANES) form: INJ, ONCE, 2016 Medical Stop date: [place] 06/09/17 9:02:00 CDT ketAMINE (ANES) Route: IV, Drug Inactive [place] form: INJ, ONCE, 2016 Medical Stop date: [place] 06/09/17 8:52:00 CDT famotidine (ANES) Route: IV, Drug Inactive [place] form: INJ, ONCE, 2016 Medical Stop date: [place] 06/09/17 8:42:00 CDT dexamethasone Route: IV, Drug Inactive [place] (ANES) form: INJ, ONCE, 2016 Medical Stop date: [place] 06/09/17 8:42:00 CDT succinylcholine Route: IV, Drug Inactive [place] (ANES) form: INJ, ONCE, 2016 Medical Stop date: [place] 06/09/17 8:42:00 CDT fentaNYL (ANES) Route: IV, Drug Inactive [place] form: INJ, ONCE, 2016 Medical Stop date: [place] 06/09/17 8:42:00 CDT rocuronium (ANES) Route: IV, Drug Inactive [place] form: INJ, ONCE, 2016 Medical Stop date: [place] 06/09/17 8:42:00 CDT lidocaine (ANES) Route: IV, Drug Inactive [place] form: INJ, ONCE, 2016 Medical Stop date: [place] 06/09/17 8:42:00 CDT propofol (ANES) Route: IV, Drug Inactive [place] form: INJ, ONCE, 2016 Medical Stop date: [place] 06/09/17 8:42:00 CDT metoclopramide Route: IV, Drug Inactive [place] (ANES) form: INJ, ONCE, 2016 Medical Stop date: [place] 06/09/17 8:42:00 CDT sodium Route: IV, Drug Inactive [place] bicarbonate form: INJ, ONCE, 2016 Medical (ANES) Stop date: [place] 06/09/17 8:42:00 CDT ceFAZolin (ANES) Route: IV, Drug Inactive [place] form: INJ, ONCE, 2016 Medical Stop date: [place] 06/09/17 8:27:00 CDT Hydralazine 10 mg, Route: Inactive [facility] IVP, Q20Min, 2016 Medical Dosing Weight Center 118.864, kg, PRN Elevated BP, Start date: 06/09/17 8:19:00 CDT, Duration: 2 doses or times, Stop date: Limited # of times Labetalol 10 mg, Route: Inactive [facility] IVP, Q5Min, 2016 Medical Dosing Weight Center 118.864, kg, PRN Elevated BP, Start date: 06/09/17 8:19:00 CDT, Duration: 5 doses or times, Stop date: Limited # of times Naloxone 0.4 mg, Route: Inactive [facility] IVP, Q2MIN, 2016 Medical Dosing Weight Center 118.864, kg, PRN Narcotic Reversal, Start date: 06/09/17 8:19:00 CDT, Duration: 8 doses or times, Stop date: Limited # of times Ondansetron 4 mg, Route: Inactive [place] IVP, ONCE, 2016 Medical Dosing Weight Center 118.864, kg, PRN Nausea & Vomiting, Start date: 06/09/17 8:19:00 CDT Flumazenil 0.2 mg, Route: Inactive [facility] IVP, PRN, Dosing 2017 Medical Weight 118.864, Center kg, PRN Benzodiazepine Reversal, Initial dose, Start date: 06/09/17 8:19:00 CDT, Duration: 30 day, Stop date: 07/09/17 7:18:[address] DEPUTY Hydromorphone 0.5 mg, Route: Inactive [facility] IVP, Q5Min, 2017 Medical Dosing Weight Center 118.864, kg, PRN Pain Score 7-10, Start date: 06/09/17 8:19:00 CDT, Duration: 4 doses or times, Stop date: Limited # of times acetaminophen Route: IV, Drug Inactive [place] (ANES) (ANES) form: INJ, Start 2017 Medical date: 06/09/17 [place] 8:03:00 CDT, Stop date: 06/09/17 9:03:00 CDT midazolam (ANES) Route: IV, Drug Inactive [place] form: SOLN, 2017 Medical ONCE, Stop date: [place] 06/09/17 8:01:00 CDT Plasma-Lyte A Route: IV, Total Inactive [place] PH-7.4 1000 ml Volume: 1,000, 2017 Medical INJ (ANES) Start date: [place] 06/09/17 7:32:00 CDT, Stop date: 06/09/17 8:32:00 CDT Protonix 40 mg, 1 tab, No Longer [place] Route: PO, Drug Active 2017 [facility], Start date: 06/09/17 7:30:00 CDT, Duration: 30 day, Stop date: 07/08/17 16:30:00 [address] DEPUTY Omeprazole 20 mg, Route: Inactive [place] PO, Drug form: [address] [place] [address] [facility], Dosing Weight 118.864, kg, Start date: 06/09/17 7:30:00 CDT, Duration: 30 day, Stop date: 07/08/17 16:30:00 COURT DEPUTY, Substitute Allowed Yes Habitrol 14 mg, 1 [...] Nicotine 14 mg, 1 patch, No Longer [place] Route: TOP, Drug Active 2016 Medical form: ERFILM, Center Q24H, Dosing Weight 118.864, kg, Start date: 06/08/17 22:30:00 CDT, Duration: 30 day, Stop date: 07/07/17 22:30:00 CSTNotes: (Same as: Habitrol) "Remove old patch before application of new patch" WASTE: F/P - P Waste Black; E - P Waste Black Zosyn 3.375 gm, Route: No Longer [place] IVPB, Drug form: Active 2016 Medical PDR/INJ, [...] Diazepam 5 mg, 1 tab, No Longer [place] Route: PO, Drug Active 2016 Medical form: TAB, Center Bedtime, Dosing Weight 119.3, kg, Start date: 06/08/17 21:00:00 CDT, Duration: 30 day, Stop date: 07/07/17 21:00:00 CSTNotes: (Same as: Valium) diazepam 5 mg 5 mg=1 tab, PO, Active [place] oral tablet Bedtime, PRN 2017 [facility] Anxiety [place] Iohexol 150 mL, Route: Inactive [place] IVP, Drug Form: 2017 Medical SOLN, Dosing Center Weight 118.864, kg, ONCALL, STAT, Start date: 06/08/17 18:22:00 CDT, Duration: 1 doses or times, Dose=2.2ml/kg, Max [id number] -- "To be infused by Radiology Staff ONLY" Dilaudid 0.1 mg, 0.05 mL, No Longer [place] Route: IVP, Drug Active 2016 Medical form: INJ, Q4H, Center Dosing Weight 119.3, kg, PRN Pain Score 7-10, Start date: 06/08/17 16:32:00 CDT, Stop date: 07/08/17 16:31:00 CSTNotes: Same as: Dilaudid Simethicone 80 mg, 1 tab, No Longer [place] Route: CHEW, Active 2016 Medical Drug form: Center CHEWTAB, QID, Dosing Weight 119.3, kg, PRN Gas, Priority: NOW, Start date: 06/08/17 16:04:00 CDT, Duration: 30 day, Stop date: 07/08/17 16:03:00 CSTNotes: (Same as: Mylicon) Protonix 40 mg, Route: No Longer [place] IVP, Drug form: Active 2016 Medical INJ, Before Center Breakfast, Dosing Weight 119.3, kg, Priority: NOW, Start date: 06/08/17 16:03:00 CDT, Duration: 30 day, Stop date: 07/08/17 7:30:00 CSTNotes: For IV push reconstitute with 10 ml 0.9% sodium chloride and push over 2 minutes. (Same as: Protonix) sodium chloride 1,000 mL, Rate: No Longer [place] 0.9% 1000 ml INJ 150 ml/hr, Active 2017 Medical 1,000 mL Infuse over: 6.7 Center hr, Route: IV, Dosing Weight 119.3 kg, Total Volume: 1,000, Start date: 06/08/17 15:38:00 CDT, Duration: 30 day, Stop date: 07/08/17 15:37:[address] DEPUTY Glucagon 1 mg, Route: IM, No Longer [place] Drug form: Active 2017 Medical PDR/INJ, PRN, Center Dosing Weight 119.3, kg, PRN Blood Glucose Results, Start date: 06/08/17 15:34:00 CDT, Duration: 30 day, Stop date: 07/08/17 14:33:[address] DEPUTY Dextrose 50% 25 gm, 50 mL, No Longer [place] Syringe Route: IVP, Drug Active 2016 Medical Form: INJ, Center Dosing Weight 119.3, kg, PRN, PRN Blood Glucose Results, Start date: 06/08/17 15:34:00 CDT, Duration: 30 day, Stop date: 07/08/17 14:33:[address] DEPUTY Insulin regular 5 unit, 0.05 mL, No Longer [facility] Route: SUB-Q, Active 2016 Medical Drug form: [...] units) WASTE: F/P - Black; E - [employer] Trash Bin Stable for 28 days at room temperature Expires in days from Da te Phenergan 12.5 mg, 0.5 mL, No Longer [place] Route: IVPB, Active 2016 Medical Drug form: INJ, Center Q4H, Dosing Weight 119.3, kg, PRN Nausea & Vomiting, Start date: 06/08/17 15:27:00 CDT, Duration: 30 day, Stop date: 07/08/17 15:26:00 CSTNotes: Do not give IV push. (Same as: Phenergan) Dextrose 5% with 1,000 mL, Rate: Inactive [place] 0.45% NaCl IV 150 ml/hr, 2017 Medical 1,000 mL Infuse over: 6.7 Center hr, Route: IV, Dosing Weight 119.3 kg, Total Volume: 1,000, Start date: 06/08/17 15:27:00 CDT, Duration: 30 day, Stop date: 07/08/17 15:26:[address] DEPUTY Saline Flush 0.9% 10 ml, Route: No Longer [place] IVP, Drug Form: Active 2017 Medical INJ, Dosing Center Weight 119.3, kg, PRN, PRN Line Flush, Start date: 06/08/17 15:27:00 CDT, Duration: 30 day, Stop date: 07/08/17 14:26:00 CSTNotes: (Same as: BD Posiflush) Morphine 2 mg, 0.5 mL, Inactive [place] Route: IVP, Drug 2016 Medical form: SOLN, Q4H, Center Dosing Weight 119.3, kg, PRN Pain Score 7-10, Start date: 06/08/17 15:27:00 CDT, Duration: 30 day, Stop date: 07/08/17 15:26:00 CSTNotes: (Same as:MORPhine Sulfate) Acetaminophen 300 1 tab, PO, Q6H, Active [place] MG / Codeine 0 Refill(s) 2017 Medical Phosphate 30 MG Center Oral Tablet Omeprazole Route: PO, No Longer Daily, Dosing Active 2016 [place] Weight 121.818, kg, Start date: 05/23/17 9:00:00 CDT, Duration: 30 day, Stop date: 06/21/17 9:00:00 CDT Zyrtec 10 mg, 2 tab, No Longer Route: PO, Drug Active 2016 [place] form: TAB, Daily, Dosing Weight 121.818, kg, Start date: 05/23/17 9:00:00 CDT, Duration: 30 day, Stop date: 06/21/17 9:00:00 CDTNotes: (Same As: Zyrtec) Protonix 40 mg, 1 tab, No Longer Route: PO, Drug Active 2016 [place] form: ECTAB, Before Breakfast, Start date: 05/23/17 7:30:00 CDT, Duration: 30 day, Stop date: 06/21/17 7:30:00 CDTNotes: Tablet should not be chewed or crushed. (Same as: Protonix) Diazepam 5 mg, 1 tab, Inactive Route: PO, Drug 2016 [place] form: TAB, Bedtime, Dosing Weight 121.818, kg, Start date: 05/22/17 21:00:00 CDT, Duration: 30 day, Stop date: 06/20/17 21:00:00 CDTNotes: (Same as: Valium) Acetaminophen 300 1 - 2 tab, PO, No Longer MG / Codeine Q4H, PRN Pain, X Active 2016 [place] Phosphate 30 MG 2 day, # 20 tab, Oral Tablet 0 Refill(s) [Tylenol with Codeine #3] Diazepam 5 mg, 1 tab, Inactive Route: PO, Drug 2016 [place] form: TAB, ONCE, Dosing Weight 121.818, kg, PRN Anxiety, Start date: 05/21/17 22:23:00 CDTNotes: (Same as: Valium) Zyrtec 10 mg, PO, Active Daily, 0 2016 [place] Refill(s) Omeprazole See Active Instructions, 2016 [place] Omeprazole with magnesium 20.6 PO Daily, 0 Refill(s) Diazepam 5 mg, PO, Active Bedtime, 0 2016 [place] Refill(s) Ondansetron 4 mg, 2 mL, No Longer Route: IVP, Drug Active 2016 [place] form: INJ, Q6H, Dosing Weight 120.455, kg, PRN Nausea & Vomiting, Start date: 05/21/17 16:11:00 CDT, Duration: 30 day, Stop date: 06/20/17 16:10:00 CDTNotes: (Same as: Renay) MEDICATION WASTE Product Size: 4 mg Product Wasted: ___ mg Acetaminophen 650 mg, 2 tab, No Longer Route: PO, Drug Active 2016 [place] form: TAB, Q4H, Dosing Weight 120.455, kg, PRN Pain 1-3/Temp > 100.4 F, Start date: 05/21/17 16:11:00 CDT, Duration: 30 day, Stop date: 06/20/17 16:10:00 CDTNotes: Do not exceed 4 gm/day. (Same as: Tylenol) Acetaminophen 325 1 tab, Route: No Longer MG / Hydrocodone PO, Drug Form: Active 2016 [place] Bitartrate 5 MG TAB, Dosing Oral Tablet Weight 120.455, kg, Q4H, PRN Pain Score 4-6, Start date: 05/21/17 16:11:00 CDT, Duration: 30 day, Stop date: 06/20/17 16:10:00 CDTNotes: (Same as: [place] 325/5) Do not exceed 4gm/day of acetaminophen. Morphine 2 mg, 1 mL, No Longer Route: IVP, Drug Active 2016 [place] form: SOLN, Q4H, Dosing Weight 120.455, kg, PRN Pain Score 7-10, Start date: 05/21/17 16:11:00 CDT, Duration: 30 day, Stop date: 06/20/17 16:10:00 CDT Zosyn 3.375 gm, Route: Inactive IVPB, ONCE, 2016 [place] Dosing Weight 120.455, kg, Priority: STAT, Start date: 05/21/17 15:50:00 CDT, Duration: 1 doses or times, Stop date: 05/21/17 15:50:00 CDT, ABX Indication: Surgical ProphylaxisNotes : (Same as: Zosyn) Dosing based on Piperacillin component MEDICATION WASTE Product Size: 3375 mg Product Wasted: ___ mg Morphine 4 mg, Route: Inactive IVP, ONCE, 2016 [place] Dosing Weight 120.455, kg, Start date: 05/21/17 15:35:00 CDT, Stop date: 05/21/17 15:35:00 CDT Sodium Chloride 1,000 mL, 1,000 Inactive 0.9% (Bolus) IV ml/hr, Infuse 2016 [place] Over: 1 hr, Route: IV, 1,000, Drug form: INJ, ONCE, Priority: STAT, Dosing Weight 120.455 kg, Start date: 05/21/17 15:35:00 CDT, Duration: 1 doses or times, Stop date: 05/21/17 15:35:00 CDT Ondansetron 4 mg, 2 mL, Inactive Route: IVP, Drug 2016 [place] form: INJ, ONCE, Dosing Weight 120.455, kg, Priority: STAT, Start date: 05/21/17 14:13:00 CDT, Stop date: 05/21/17 14:13:00 CDTNotes: (Same as: Renay) MEDICATION WASTE Product Size: 4 mg Product Wasted: ___ mg Sodium Chloride 1,000 mL, 1000 Inactive 0.9% (Bolus) IV ml/hr, Infuse 2016 [place] Over: 1 hr, Route: IV, 1,000, Drug form: INJ, ONCE, Priority: STAT, Dosing Weight 120.455 kg, Start date: 05/21/17 14:13:00 CDT, Duration: 1 doses or times, Stop date: 05/21/17 14:13:00 CDT Allergies, Adverse Reactions, Alerts Substance Category Reaction Severity Reaction Status Date Comments Source type Reported Immunizations Immunization Date Given Site Status Last Updated Comments Source Results Order Name Results Value Reference Date Interpretation Comments Source Range CHEM PANEL ALT 188 unit/L 0 - 65 06/[address] CHEM PANEL Bili Total 1.1 mg/dL 0.2 - 1.3 06/[address] CHEM PANEL Bili Direct 0.1 mg/dL 0.0 - 0.3 06/[address] CHEM PANEL AST 69 unit/L 0 - 37 06/[address] CHEM PANEL Alk Phos 125 unit/L 39 - 136 06/[address] CHEM PANEL Albumin Lvl 3.3 g/dL 3.5 - 5.0 06/[address] CHEM PANEL Total 7.4 g/dL 6.4 - 8.4 06/[address] CHEM PANEL Bili 1.0 mg/dL 0.0 - 1.0 06/12 [facility]2016 [facility] CHEM PANEL Globulin 4.1 g/dL 2.7 - 4.2 06/[address] CHEM PANEL A/G Ratio 0.8 0.7 - 1.6 06/[address] CHEM PANEL Phosphorus 3.9 mg/dL 2.5 - 4.5 06/[address] CHEM PANEL Magnesium 2.2 mg/dL 1.8 - 2.4 06/[address] [facility] ELECTROLYTE AGAP 12.9 meq/L 10.0 - 06/12 [facility] [address] [facility] ELECTROLYTE eGFR 123 06/12 Result Comment: The eGFR is calculated using the CKD-EPI formula. In most young, healthy individuals the eGFR will be > 90 mL/min/1.73m2. The eGFR declines with age. An eGFR of 60-89 may be normal in [facility] mL/min/1.7 some populations, particularly the elderly, for whom the CKD-EPI formula has not been extensively validated. Use of the eGFR is not recommended in the following populations: [address] Individuals with unstable creatinine concentrations, including [...] Lvl 9.0 mg/dL 8.5 - 10.5 06/[address] [facility] ELECTROLYTE CO2 26 meq/L 24 - 32 06/12 [facility] ELECTROLYTE Potassium 3.9 meq/L 3.5 - 5.1 06/12 [facility] ELECTROLYTE Chloride Lvl 104 meq/L 95 - 109 06/12 [facility] ELECTROLYTE Creatinine 0.71 mg/dL 0.50 - 06/12 [facility] [address] [facility] ELECTROLYTE Sodium Lvl 139 meq/L 135 - 145 06/[address] [facility] ELECTROLYTE BUN 8 mg/dL 7 - 22 06/12 [facility] ELECTROLYTE Glucose Lvl 85 mg/dL 70 - 99 06/[address] [facility] HEMATOLOGY RBC 4.58 M/CMM 4.70 - 06/12 [facility] [address] [facility] HEMATOLOGY MCV 89.3 fL 80.0 - 06/12 [facility] [address] [facility] HEMATOLOGY WBC 7.3 K/CMM 3.7 - 10.4 06/[address] [facility] HEMATOLOGY RDW 13.4 % 11.5 - 06/12 [facility] [address] [facility] HEMATOLOGY Platelet 178 K/CMM 133 - 450 06/12 [facility] HEMATOLOGY MPV 8.4 fL 7.4 - 10.4 06/12 [facility] HEMATOLOGY MCH 30.8 pg 27.0 - 06/[address] [place] [address] [facility] HEMATOLOGY MCHC 34.4 g/dL 32.0 - 06/12 36.0 /2017 [facility] HEMATOLOGY Hgb 14.1 g/dL 14.0 - 06/[address] [place] [address] [facility] HEMATOLOGY Hct 40.9 % 42.0 - 06/12 [place] 54.0 /2017 [facility] HEMATOLOGY Eosinophils 2.0 % 0.0 - 4.0 06/12 [facility] HEMATOLOGY Basophils 0.7 % 0.0 - 1.0 06/12 [facility] HEMATOLOGY Segs-Bands # 5.1 K/CMM 1.5 - 8.1 06/12 [facility] HEMATOLOGY Lymphocytes 1.4 K/CMM 1.0 - 5.5 06/12 [facility] # /2016 [facility] HEMATOLOGY Monocytes # 0.6 K/CMM 0.0 - 0.8 06/12 [facility] HEMATOLOGY Eosinophils 0.1 K/CMM 0.0 - 0.5 06/12 [facility] /2016 [facility] HEMATOLOGY Basophils # 0.1 K/CMM 0.0 - 0.2 06/12 [facility] HEMATOLOGY Segs 70.2 % 45.0 - 06/12 [place] 75.0 /2017 [facility] HEMATOLOGY Lymphocytes 18.9 % 20.0 - 06/12 [place] [address] [facility] HEMATOLOGY Monocytes 8.2 % 2.0 - 12.0 06/12 [facility] CHEM PANEL Phosphorus 2.1 mg/dL 2.5 - 4.5 06/11 [facility] CHEM PANEL Magnesium 2.2 mg/dL 1.8 - 2.4 06/11 [facility] L[address] [facility] CHEM PANEL Globulin 3.7 g/dL 2.7 - 4.2 06/11 [facility] CHEM PANEL A/G Ratio 0.9 0.7 - 1.6 06/11 [facility] CHEM PANEL Bili 0.7 mg/dL 0.0 - 1.0 06/[address] [facility] CHEM PANEL ALT 209 unit/L 0 - 65 06/11 [facility] CHEM PANEL Albumin Lvl 3.4 g/dL 3.5 - 5.0 06/11 [facility] CHEM PANEL Total 7.1 g/dL 6.4 - 8.4 06/[address] [facility] CHEM PANEL Bili Direct 0.1 mg/dL 0.0 - 0.3 06/11 [facility] CHEM PANEL Bili Total 0.8 mg/dL 0.2 - 1.3 06/11 [facility] CHEM PANEL Alk Phos 138 unit/L 39 - 136 06/11 [facility] CHEM PANEL AST 41 unit/L 0 - 37 06/11 [facility] CHEM PANEL eGFR 121 06/11 Result Comment: The eGFR is calculated using the CKD-EPI formula. In most young, healthy individuals the eGFR will be >90 mL/ min/1.73m2. The eGFR declines with age. An eGFR of 60-89 may be normal in [facility] mL/min/1.7 some populations, particularly the elderly, for whom the CKD-EPI formula has not been extensively validated. Use of the eGFR is not recommended in the following populations: [address] Individuals with unstable creatinine concentrations, including [...] Lvl 105 meq/L 95 - 109 06/11 [facility] CHEM PANEL Potassium 3.6 meq/L 3.5 - 5.1 06/11 [facility] Lvl [facility] CHEM PANEL Calcium Lvl 8.6 mg/dL 8.5 - 10.5 06/11 [facility] CHEM PANEL CO2 23 meq/L 24 - 32 06/11 [facility] CHEM PANEL AGAP 13.6 meq/L 10.0 - 06/11 [facility] [address] [facility] CHEM PANEL Creatinine 0.75 mg/dL 0.50 - 06/11 [facility] [address] CHEM PANEL Glucose Lvl 80 mg/dL 70 - 99 06/11 [facility] CHEM PANEL BUN 5 mg/dL 7 - 22 06/11 [facility] CHEM PANEL Sodium Lvl 138 meq/L 135 - 145 06/11 [facility] HEMATOLOGY Hgb 14.1 g/dL 14.0 - 06/[address] [facility] HEMATOLOGY RBC 4.55 M/CMM 4.70 - 06/[address] [facility] HEMATOLOGY WBC 8.5 K/CMM 3.7 - 10.4 06/11 [facility] HEMATOLOGY Hct 41.0 % 42.0 - 06/[address] [facility] HEMATOLOGY MCV 90.1 fL 80.0 - 06/[address] [facility] HEMATOLOGY MCH 30.9 pg 27.0 - 06/[address] [facility] HEMATOLOGY MCHC 34.3 g/dL 32.0 - 06/[address] [facility] HEMATOLOGY MPV 8.4 fL 7.4 - 10.4 06/11 [facility] HEMATOLOGY Platelet 164 K/CMM 133 - 450 06/11 [facility] HEMATOLOGY RDW 13.8 % 11.5 - 06/[address] [facility] HEMATOLOGY Eosinophils 0.1 K/CMM 0.0 - 0.5 06/11 [facility] HEMATOLOGY Segs-Bands # 6.7 K/CMM 1.5 - 8.1 06/11 [facility] HEMATOLOGY Lymphocytes 1.1 K/CMM 1.0 - 5.5 06/11 [facility] HEMATOLOGY Monocytes # 0.6 K/CMM 0.0 - 0.8 06/11 [facility] HEMATOLOGY Monocytes 7.0 % 2.0 - 12.0 06/11 [facility] HEMATOLOGY Segs 78.6 % 45.0 - 06/[address] [place] [address] [facility] HEMATOLOGY Lymphocytes 13.0 % 20.0 - 06/[address] [facility] HEMATOLOGY Basophils 0.5 % 0.0 - 1.0 06/11 [facility] HEMATOLOGY Eosinophils 0.9 % 0.0 - 4.0 06/11 [facility] CHEM PANEL Amylase Lvl 94 unit/L 25 - 115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
[2018-08-22] MEDS ORDERED: NA CHLORIDE 0.9% 0 ML ONE (05:41)
[2018-08-22] MEDS ORDERED: NA CHLORIDE 0.9% 1,000 ML ONE ×2 (05:47→08:55)
[2018-08-22 05:50] LABS: Albumin 3.9 g/dL (3.4-5.0); Bilirubin Direct 0.2 mg/dL (0-0.2); Bilirubin Total 0.9 mg/dL (0.2-1.0); Potassium 3.5 mmol/L (3.5-5.1)
[2018-08-22 06:04] LABS: Absolute Lymphocytes (CBC) 0.2 K/uL (0.7-4.9); Absolute Monocytes 0.4 K/uL (0.1-1.3); Absolute Neutrophil 10.2 K/uL (1.8-8.0); Basophils % 0.4 % (0-1.3); Eosinophils % 0.6 % (0-4.4); Hematocrit 48.1 % (39.6-49.0); Lymphocytes % 2.2 % (15.3-44.8); MPV 9.4 fL (7.6-11.3); Monocytes % 3.4 % (3.3-12.3)
[2018-08-22 06:50] LABS: Blood Morphology Comment NOT SEEN (NOT SEEN); Platelet Estimate ADEQ
[2018-08-22] MEDS ORDERED: DICYCLOMINE HCL 10 MG CAP ONE (07:03)
[2018-08-22] MEDS ORDERED: ONDANSETRON 4 MG/2 ML VIAL ONE ×2 (07:05→08:55)
[2018-08-22] MEDS ORDERED: FENTANYL CITR 100 MCG/2 ML ONE ×2 (07:05→08:55)
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
== END 2018-08-22 11:50 | disposition home or self-care (01) ==
LOC: ER 04:40
DX: R19.7 Diarrhea, unspecified (principal); I10 Essential (primary) hypertension; F41.9 Anxiety disorder, unspecified; Z88.5 Allergy status to narcotic agent
CPT/HCPCS: 36415; 74177; 80048; 80076; 83690; 85025; 87045; 87046; 87493; 87804; J2405; J3010; J7030; Q9967

== ENCOUNTER 2020-02-20 12:11 | Emergency (ER) | payer SELFPAY ==
--- NOTE | 2020-02-20 13:16 | RAD REPORT ---
EXAM DESCRIPTION: RAD - Chest Single View - 02/20/2020 1:08 pm CLINICAL HISTORY: FEVER, cough, loss of taste and smell COMPARISON: Two view chest March 2018 TECHNIQUE: AP portable chest image was obtained 02/20/2020 1:08 pm . FINDINGS: No focal mass or consolidation identifiable. No measurable degree of ground-glass opacific ation seen in the lung reyes. No failure or volume overload. Heart and vasculature are normal. No me asurable pleural effusion and no pneumothorax. No acute bony abnormality seen. No acute aortic findin gs suspected. IMPRESSION: No acute cardiopulmonary process. Provided clinical history is compatible with a COVID-19 infection. However, no chest abnormalities ar e evident.
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
--- OUTSIDE RECORDS SUMMARY | 2020-02-20 14:19 | XMS REPORT | Continuity of Care Document ---
:1985 Author Organization [facility] Grant Information [place] Care Team Providers Name Role Phone [facility] Information [place] Unavailable Un available Problems Problem Status Onset Classification Date Comments Sourc e Date Reported FOLLOW UP Active 06/13/20 [facility] ACUTE Active 06/08/20 [facility] GALLBLADDER [address] [place] [address] CONSULT FOR Active 05/23/20 [facility] GALLSTONES [address] [place] [address] ACUTE Active 05/21/20 [facility] CHOLECYSTITIS [place] STONE IN Active 05/21/20 [facility] GALBLADDER [place] Feeding Resolved 12/16/19 Problem 06/24/2017 inserted [facility] catheter, device 10 ENDO [place] Med ical (physical Center,[facility]) [place] Morbid obesity Active Problem 06/24/2017 [facility] (disorder) [facility] Pain (finding) Active Problem 06/24/2017 [facility] [place] [facility] Rib pain Active Problem 06/24/2017 [facility] (finding) [facility] Tracheostomy Resolved Problem 06/24/2017 [facility] as present Medical (finding) Center,[facility] ACUTE Active [facility] CHOLECYSTITIS [place] Medications Medication Details Route Status Patient Ordering Order Source Instructions Provider Date Bisacodyl Notes: (Same As: Inactive [facility] Dulcolax, 2017 Medical Bisco-Lax) [place] Bacitracin 0.5 1 appl, TOP, Active [facility] ex[place] UNT/MG / QID, # 30 gm, 0 2017 Medical Polymyxin B 10 Refill(s), [place] UNT/MG Topical Pharmacy: [facility] [id number] tramadol 100 mg = 2 tab, Active [place]12[place] hydrochloride 50 PO, Q6H, PRN 2017 Me dical MG Oral Tablet Pain Score 1-3, C enter X 7 day, # 56 tab, 0 Refill(s) Acetaminophen 325 1 tab, PO, Q4H, Active 06/12[facility] [place] MG / Hydrocodone PRN Pain Score 2017 Medical Bitartrate 10 MG 4-6, # 30 tab, 0 Center Oral Tablet Refill(s), given [[place] 10] to patient Margarito S oral 2 tab, PO, Active [place] tablet Bedtime, X 15 2017 Medical day, # 30 tab, 0 Center Refill(s), Pharmacy: [facility] [id number] POLYETHYLENE 17 gm, PO, Active [place] GLYCOL 3350 142 Daily, X 15 day, 2017 Medical MG/ML Oral # 255 gm, 0 Center Solution Refill(s), [Miralax] Pharmacy: [facility] [id number] bacitracin-polymy Notes: (Same As: No Longer [place] evans B topical Polysporin) Active 2016 Medica l [place] Neosporin 1 appl, Route: Inactive [facility] as TOP, QID, Drug 2017 Medical form: OINT, Center Start date: 06/11/17 13:00:00 CDT, Duration: 30 day, Stop date: 07/11/17 9:00:00 INTERNET SYSTEMS ADMINISTRATOR remove patch Notes: Remove No Longer [place] old patch before Active 2016 Medical application of [place] new patch. WASTE: F/P - P Waste Black; E - P Waste Black Nicotine Notes: (Same as: No Longer [place] Habitrol) Active 2016 Medical "Remove old Center patch before application of new patch" WASTE: F/P - P Waste Black; E - P Waste Black Habitrol 21 mg, Route: Inactive [facility], Drug form: 2017 Medical ERFILM, Q24H, Center Dosing Weight 118.864, kg, Start date: 06/11/17 11:00:00 CDT, Duration: 30 day, Stop date: 07/10/17 11:00:00 INTERNET SYSTEMS ADMINISTRATOR Dulcolax Laxative Notes: (Same As: No Longer [place] Dulcolax, Active 2017 Medical Correctol) (Do Center Not Crush) "Do Not Crush" Tramadol Notes: Not to [place]er [place] exceed Active 2017 Medical 400mg/day. (Same Center As: Ultram) Acetaminophen 325 Notes: Do not No Longer [place] MG / Hydrocodone exceed 4gm/day Active 2017 Medical Bitartrate 10 MG of Center Oral Tablet acetaminophen. [[place] 10/325] (Same as: [place] 325/10) Docusate Sodium Notes: (Same as: No Longer 06/10 [facility] 100 MG Oral Colace) (Do Not Active 2017 [facility] jose Capsule [Colace] Crush) Center Cetirizine Notes: (Same As: No Longer [facility] Zyrtec) Active 2017 [facility] [place] tramadol Notes: Not to [place] hydrochloride 50 exceed Active 2017 Medical MG Oral Tablet 400mg/day. (Same Center As: [facility]) Acetaminophen 325 Notes: (Same as: No Longer [facility] MG / Hydrocodone [place] 325/5) Do Active 2017 Medical Bitartrate 5 MG not exceed Cente r Oral Tablet 4gm/day of [[place] 5/325] acetaminophen. heparin Notes: porcine [place]er [place] heparin Active [address] [place] [address] remove patch Notes: WASTE: No Longer [facility] F/P - P Waste Active [address] [place] [address]; E - P Center Waste Black D5W 1/2NS 1,000 1,000 mL, Rate: No Longer [facility] mL 50 ml/hr, Infuse Active [address] [place] [address] over: 20 hr, [place] Route: IV, Dosing Weight 118.864 kg, Total Volume: 1,000, Start date: 06/09/17 13:50:00 CDT, Stop date: 07/09/17 13:49:00 INTERNET SYSTEMS ADMINISTRATOR glycopyrrolate Route: IV, Drug Inactive [place] (ANES) form: INJ, ONCE, 2016 Medical Stop date: [place] 06/09/17 10:44:00 CDT neostigmine Route: IV, Drug Inactive [facility] (ANES) form: INJ, ONCE, 2016 Medical Stop date: [place] 06/09/17 10:44:00 CDT ondansetron Route: IV, Drug Inactive [facility] (ANES) form: INJ, ONCE, 2016 Medical Stop date: [place] 06/09/17 10:34:00 CDT ketOROLAC (ANES) IV, [place]CE [place] [address] [place] [address] hydromorphone Route: IV, Drug Inactive 10/13/ [facility] [place] (ANES) form: INJ, ONCE, 2016 Medical Stop date: [place] 06/09/17 9:02:00 CDT ketAMINE (ANES) Route: IV, Drug Inactive [place] form: INJ, ONCE, 2016 Medical Stop date: [place] 06/09/17 8:52:00 CDT famotidine (ANES) Route: IV, Drug Inactive 06/09 [place] form: INJ, ONCE, 2016 Medical Stop date: [place] 06/09/17 8:42:00 CDT dexamethasone Route: IV, Drug Inactive 06/09/ [facility] [place] (ANES) form: INJ, ONCE, 2016 Medical Stop date: [place] 06/09/17 8:42:00 CDT succinylcholine Route: IV, Drug Inactive [place] (ANES) form: INJ, ONCE, 2016 Medical Stop date: [place] 06/09/17 8:42:00 CDT fentaNYL (ANES) Route: IV, Drug Inactive [place] form: INJ, ONCE, 2016 Medical Stop date: [place] 06/09/17 8:42:00 CDT rocuronium (ANES) Route: IV, Drug Inactive 06/09 [place] form: INJ, ONCE, 2016 Medical Stop date: [place] 06/09/17 8:42:00 CDT lidocaine (ANES) Route: IV, Drug Inactive [place] form: INJ, ONCE, 2016 Medical Stop date: [place] 06/09/17 8:42:00 CDT propofol (ANES) Route: IV, Drug Inactive [place] form: INJ, ONCE, 2016 Medical Stop date: [place] 06/09/17 8:42:00 CDT metoclopramide Route: IV, Drug Inactive [place] (ANES) form: INJ, ONCE, 2016 Medical Stop date: [place] 06/09/17 8:42:00 CDT sodium Route: IV, Drug Inactive [place] bicarbonate form: INJ, ONCE, 2016 Med ical (ANES) Stop date: [place] 06/09/17 8:42:00 CDT ceFAZolin (ANES) Route: IV, Drug Inactive [place] form: INJ, ONCE, 2016 Medical Stop date: [place] 06/09/17 8:27:00 CDT Hydralazine 10 mg, Route: [place]active [place] IVP, Q20Min, 2016 Medical Dosing Weight Center 118.864, kg, PRN Elevated BP, Start date: 06/09/17 8:19:00 CDT, Duration: 2 doses or times, Stop date: Limited # of times Labetalol 10 mg, Route: Inactive [place] IVP, Q5Min, 2016 Medical Dosing Weight Center 118.864, kg, PRN Elevated BP, Start date: 06/09/17 8:19:00 CDT, Duration: 5 doses or times, Stop date: Limited # of times Naloxone 0.4 mg, Route: [place] IVP, Q2MIN, 2016 Medical Dosing Weight Center 118.864, kg, PRN Narcotic Reversal, Start date: 06/09/17 8:19:00 CDT, Duration: 8 doses or times, Stop date: Limited # of times Ondansetron 4 mg, Route: Inactive [place] IVP, ONCE, 2016 Medical Dosing Weight Center 118.864, kg, PRN Nausea & Vomiting, Start date: 06/09/17 8:19:00 CDT Flumazenil 0.2 mg, Route: Inactive [place] IVP, PRN, Dosing 2017 Medical Weight 118.864, Center kg, PRN Benzodiazepine Reversal, Initial dose, Start date: 06/09/17 8:19:00 CDT, Duration: 30 day, Stop date: 07/09/17 7:18:00 INTERNET SYSTEMS ADMINISTRATOR Hydromorphone 0.5 mg, Route: Inactive [place] IVP, Q5Min, 2016 Medical Dosing Weight Center 118.864, kg, PRN Pain Score 7-10, Start date: 06/09/17 8:19:00 CDT, Duration: 4 doses or times, Stop date: Limited # of times acetaminophen Route: IV, Drug Inactive Pk Me[place] (ANES) (ANES) form: INJ, Start 2016 edical date: 06/09/17 Center 8:03:00 CDT, Stop date: 06/09/17 9:03:00 CDT midazolam (ANES) Route: IV, Drug Inactive [place] form: SOLN, 2017 Medical ONCE, Stop date: [place] 06/09/17 8:01:00 CDT Plasma-Lyte A Route: IV, Total Inactive [place] PH-7.4 1000 ml Volume: 1,000, 2017 Me dical INJ (ANES) Start date: [place] 06/09/17 7:32:00 CDT, Stop date: 06/09/17 8:32:00 CDT Protonix 40 mg, 1 tab, [place] Route: PO, Drug Active 2016 Medical form: ECTAB, Center BID-Before Meals, Start date: 06/09/17 7:30:00 CDT, Duration: 30 day, Stop date: 07/08/17 16:30:00 INTERNET SYSTEMS ADMINISTRATOR Omeprazole 20 mg, Route: Inactive [place] PO, Drug form: 2016 [facility] ECCAP, Center BID-Before Meals, Dosing Weight 118.864, kg, Start date: 06/09/17 7:30:00 CDT, Duration: 30 day, Stop date: 07/08/17 16:30:00 INTERNET SYSTEMS ADMINISTRATOR, Substitute Allowed Yes Habitrol Notes: (Same as: [place] Longer [place] Habitrol) Active 2017 Medical "Remove old Center patch before application of new patch" WASTE: F/P - P Waste Black; E - P Waste Black Nicotine Notes: (Same as: No Longer [place] Habitrol) Active 2017 Medical "Remove old Center patch before application of new patch" WASTE: F/P - P Waste Black; E - P Waste Black Zosyn Notes: (Same as: [place] Zosyn) Dosing Active 2017 Medical based on Center Piperacillin component MEDICATION WASTE Product Size: 3375 mg Product Wasted: __0_ mg Diazepam Notes: (Same as: No Longer [place] Valium) Active 2017 Medical Center diazepam 5 mg 5 mg = 1 tab, Active [place] oral tablet PO, Bedtime, PRN 2017 Med ical Anxiety Center Iohexol 150 mL, Route: Inactive [place] IVP, Drug Form: 2017 Medical SOLN, Dosing Center Weight 118.864, kg, ONCALL, STAT, Start date: 06/08/17 18:22:00 CDT, Duration: 1 doses or times, Dose = 2.2ml/kg, Max dose = 150ml -- "To be infused by Radiology Staff ONLY" Dilaudid Notes: Same as: [place] Longer [place] Dilaudid Active 2017 [facility] Simethicone Notes: (Same as: No Longer [place] Mylicon) Active 2017 [facility] Protonix Notes: For IV [place] Longer [place] push Active 2017 [facility] reconstitute [place] with 10 ml 0.9% sodium chloride and push over 2 minutes. (Same as: Protonix) sodium chloride 1,000 mL, Rate: No Longer [place] 0.9% 1000 ml INJ 150 ml/hr, Active 2016 [facility] jose 1,000 mL Infuse over: 6.7 Center hr, Route: IV, Dosing Weight 119.3 kg, Total Volume: 1,000, Start date: 06/08/17 15:38:00 CDT, Duration: 30 day, Stop date: 07/08/17 15:37:00 INTERNET SYSTEMS ADMINISTRATOR Glucagon 1 mg, Route: IM, No Longer [place] Drug form: Active 2016 Medical PDR/INJ, PRN, Center Dosing Weight 119.3, kg, PRN Blood Glucose Results, Start date: 06/08/17 15:34:00 CDT, Duration: 30 day, Stop date: 07/08/17 14:33:00 INTERNET SYSTEMS ADMINISTRATOR Dextrose 50% 25 gm, 50 mL, No Longer [place] Syringe Route: IVP, Drug Active 2016 Medical Form: INJ, Center Dosing Weight 119.3, kg, PRN, PRN Blood Glucose Results, Start date: 06/08/17 15:34:00 CDT, Duration: 30 day, Stop date: 07/08/17 14:33:00 INTERNET SYSTEMS ADMINISTRATOR Insulin regular 60 units) No Longer [place] WASTE: F/P - Active 2017 [facility] Black; E - Center Municipal Trash Bin Stable for 28 days at room temperature Expires in days from Da te Phenergan Notes: Do not No Longer [place] as give IV push. Active 2017 Medical (Same as: Center Phenergan) Dextrose 5% with 1,000 mL, Rate: Inactive [place] 0.45% NaCl IV 150 ml/hr, 2017 Medical 1,000 mL Infuse over: 6.7 Center hr, Route: IV, Dosing Weight 119.3 kg, Total Volume: 1,000, Start date: 06/08/17 15:27:00 CDT, Duration: 30 day, Stop date: 07/08/17 15:26:00 INTERNET SYSTEMS ADMINISTRATOR Saline Flush 0.9% Notes: (Same as: No Longer [place] BD Posiflush) Active 2017 [facility] Morphine Notes: (Same Inactive [place] as:MORPhine 2017 Medical Sulfate) [place] Acetaminophen 300 1 tab, PO, Q6H, Active [place] MG / Codeine 0 Refill(s) 2017 Medical Phosphate 30 MG [place] Oral Tablet Omeprazole Route: PO, No Longer Daily, Dosing Active 2017 [place] Weight 121.818, kg, Start date: 05/23/17 9:00:00 CDT, Duration: 30 day, Stop date: 06/21/17 9:00:00 CDT Zyrtec Notes: (Same As: No Longer Zyrtec) Active 2016 [place] Protonix Notes: Tablet No Longer should not be Active 2017 [place] chewed or crushed. (Same as: Protonix) Diazepam Notes: (Same as: Inactive Valium) 2017 [place] Acetaminophen 300 1 - 2 tab, PO, No Longer 05/22 MG / Codeine Q4H, PRN Pain, X Active 2016 [facility] Phosphate 30 MG 2 day, # 20 tab, Oral Tablet 0 Refill(s) [Tylenol with Codeine #3] Diazepam Notes: (Same as: Inactive Valium) 2017 [place] Zyrtec 10 mg, PO, Active Daily, 0 2017 [place] Refill(s) Omeprazole See Active Instructions, 2017 [place] Omeprazole with magnesium 20.6 PO Daily, 0 Refill(s) Diazepam 5 mg, PO, Active Bedtime, 0 2016 [place] Refill(s) Ondansetron Notes: (Same as: No Longer H Zofran) Active 2016 [place] MEDICATION WASTE Product Size: 4 mg Product Wasted: ___ mg Acetaminophen Notes: Do not No Longer exceed 4 gm/day. Active 2016 [place] (Same as: Tylenol) Acetaminophen 325 Notes: (Same as: No Longer MG / Hydrocodone [place] 325/5) Do Active 2016 [place] Bitartrate 5 MG not exceed Oral Tablet 4gm/day of acetaminophen. Morphine 2 mg, 1 mL, No Longer Route: IVP, Drug Active 2016 [place] form: SOLN, Q4H, Dosing Weight 120.455, kg, PRN Pain Score 7-10, Start date: 05/21/17 16:11:00 CDT, Duration: 30 day, Stop date: 06/20/17 16:10:00 CDT Zosyn Notes: (Same as: Inactive Zosyn) Dosing 2016 [place] based on Piperacillin component MEDICATION WASTE Product Size: 3375 mg Product Wasted: ___ mg Morphine 4 mg, Route: Inactive IVP, ONCE, 2016 [place] Dosing Weight 120.455, kg, Start date: 05/21/17 15:35:00 CDT, Stop date: 05/21/17 15:35:00 CDT Sodium Chloride 1,000 mL, 1,000 Inactive 0.9% (Bolus) IV ml/hr, Infuse 2016 [place] Over: 1 hr, Route: IV, 1,000, Drug form: INJ, ONCE, Priority: STAT, Dosing Weight 120.455 kg, Start date: 05/21/17 15:35:00 CDT, Duration: 1 doses or times, Stop date: 05/21/17 15:35:00 CDT Ondansetron Notes: (Same as: Inactive Zofran) 2016 [place] MEDICATION WASTE Product Size: 4 mg Product Wasted: ___ mg Sodium Chloride 1,000 mL, 1000 Inactive 0.9% (Bolus) IV ml/hr, Infuse 2016 [place] Over: 1 hr, Route: IV, 1,000, Drug form: INJ, ONCE, Priority: STAT, Dosing Weight 120.455 kg, Start date: 05/21/17 14:13:00 CDT, Duration: 1 doses or times, Stop date: 05/21/17 14:13:00 CDT Allergies, Adverse Reactions, Alerts No Known Medication Allergies Immunizations No Data Provided for This Section Results Order Name Results Value Reference Date Interpretation Comments Diana rce Range CHEM PANEL ALT 188 0 - 65 06/12 [facility] CHEM PANEL Bili Total 1.1 0.2 - 1.3 06/12 [facility]2016 [facility] CHEM PANEL Bili Direct 0.1 0.0 - 0.3 06/12 [facility] CHEM PANEL AST 69 0 - 37 06/12 [facility]2016 [facility] CHEM PANEL Alk Phos 125 39 - 136 06/12 [facility]2016 [facility] CHEM PANEL Albumin Lvl 3.3 3.5 - 5.0 06/12 [facility] CHEM PANEL Total Protein 7.4 6.4 - 8.4 06/12 [facility] CHEM PANEL Bili Indirect 1.0 0.0 - 1.0 06/12 [facility]2016 [facility] CHEM PANEL Globulin 4.1 2.7 - 4.2 06/12 [facility]2016 [facility] CHEM PANEL A/G Ratio 0.8 0.7 - 1.6 06/12 [facility]2016 [facility] CHEM PANEL Phosphorus 3.9 2.5 - 4.5 06/[address] CHEM PANEL Magnesium Lvl 2.2 1.8 - 2.4 06/12 [facility] ELECTROLYTE AGAP 12.9 10.0 - 06/12 [facility] S 20.0 [facility] ELECTROLYTE eGFR 123 06/12 [facility] Comment: The Medical eGFR is Center calculated using the CKD-EPI formula. In most young, healthy individuals the eGFR will be >90 mL/min/1.73m2 . The eGFR declines with age. An eGFR of 60-89 may be normal in some populations, particularly the elderly, for whom the CKD-EPI formula has not been extensively validated. Use of the eGFR is not recommended in the following populations:< br/>
Sandi viduals with unstable creatinine concentration s, including patients and those with serious co-morbid conditions.<b r/>
Patie nts with extremes in muscle mass or diet.

The data above are obtained from the National Kidney Disease Education Program (NKDEP) which additionally recommends that when the eGFR is used in patients with extremes of body mass index for purposes of drug dosing, the eGFR should be multiplied by the estimated BMI. ELECTROLYTE Calcium Lvl 9.0 8.5 - 10.5 06/12 [place] [facility] ELECTROLYTE CO2 26 24 - 32 06/12 [facility] ELECTROLYTE Potassium Lvl 3.9 3.5 - 5.1 06/12 [place] [facility] ELECTROLYTE Chloride Lvl 104 95 - 109 06/12 [facility] ELECTROLYTE Creatinine 0.71 0.50 - 06/12 [facility] S Lvl 1.40 [facility] ELECTROLYTE Sodium Lvl 139 135 - 145 06/12 [facility] ELECTROLYTE BUN 8 7 - 22 06/12 [facility] ELECTROLYTE Glucose Lvl 85 70 - 99 06/12 [facility] HEMATOLOGY RBC 4.58 4.70 - 06/12 [place] 6. [facility] HEMATOLOGY MCV 89.3 80.0 - 06/12 [place] 94.0 [facility] HEMATOLOGY WBC 7.3 3.7 - 10.4 06/12 [facility] HEMATOLOGY RDW 13.4 11.5 - 06/12 [place] 14.5 [facility] HEMATOLOGY Platelet 178 133 - 450 06/12 [facility] HEMATOLOGY MPV 8.4 7.4 - 10.4 06/12 [facility] HEMATOLOGY MCH 30.8 27.0 - 06/12 [place] 31.0 [facility] HEMATOLOGY MCHC 34.4 32.0 - 06/12 [place] 36.0 [facility] HEMATOLOGY Hgb 14.1 14.0 - 06/12 [place] 18.0 [facility] HEMATOLOGY Hct 40.9 42.0 - 06/12 [place] 54.0 [facility] HEMATOLOGY Eosinophils 2.0 0.0 - 4.0 06/12 [place] [facility] HEMATOLOGY Basophils 0.7 0.0 - 1.0 06/12 [facility] HEMATOLOGY Segs-Bands # 5.1 1.5 - 8.1 06/12 [facility] HEMATOLOGY Lymphocytes # 1.4 1.0 - 5.5 06/12 [facility] HEMATOLOGY Monocytes # 0.6 0.0 - 0.8 06/12 [facility] HEMATOLOGY Eosinophils # 0.1 0.0 - 0.5 06/12 [facility] HEMATOLOGY Basophils # 0.1 0.0 - 0.2 06/12 [facility] HEMATOLOGY Segs 70.2 45.0 - 06/12 [facility] 75.0 [facility] HEMATOLOGY Lymphocytes 18.9 20.0 - 06/12 [facility] 40.0 [facility] HEMATOLOGY Monocytes 8.2 2.0 - 12.0 06/12 2016 [facility] CHEM PANEL Phosphorus 2.1 2.5 - 4.5 06/11 2016 [facility] CHEM PANEL Magnesium Lvl 2.2 1.8 - 2.4 06/11 [facility] CHEM PANEL Globulin 3.7 2.7 - 4.2 06/11 2016 [facility] CHEM PANEL A/G Ratio 0.9 0.7 - 1.6 06/11 2016 [facility] CHEM PANEL Bili Indirect 0.7 0.0 - 1.0 06/11 [facility] CHEM PANEL ALT 209 0 - 65 06/11 2016 [facility] CHEM PANEL Albumin Lvl 3.4 3.5 - 5.0 06/11 [facility] CHEM PANEL Total Protein 7.1 6.4 - 8.4 06/11 [facility] 2016 [facility] CHEM PANEL Bili Direct 0.1 0.0 - 0.3 06/11 [facility] 2016 [facility] CHEM PANEL Bili Total 0.8 0.2 - 1.3 06/11 2016 [facility] CHEM PANEL Alk Phos 138 39 - 136 06/11 2016 [facility] CHEM PANEL AST 41 0 - 37 06/11 2016 [facility] CHEM PANEL eGFR 121 06/11 [facility] Comment: The Medical eGFR is Center calculated using the CKD-EPI formula. In most young, healthy individuals the eGFR will be >90 mL/min/1.73m2 . The eGFR declines with age. An eGFR of 60-89 may be normal in some populations, particularly the elderly, for whom the CKD-EPI formula has not been extensively validated. Use of the eGFR is not recommended in the following populations:< br/>
Sandi viduals with unstable creatinine concentration s, including patients and those with serious co-morbid conditions.<b r/>
Patie nts with extremes in muscle mass or diet.

The data above are obtained from the National Kidney Disease Education Program (NKDEP) which additionally recommends that when the eGFR is used in patients with extremes of body mass index for purposes of drug dosing, the eGFR should be multiplied by the estimated BMI. CHEM PANEL Chloride Lvl 105 95 - 109 06/11 [facility] CHEM PANEL Potassium Lvl 3.6 3.5 - 5.1 06/11 [place] [facility] CHEM PANEL Calcium Lvl 8.6 8.5 - 10.5 06/11 [facility] CHEM PANEL CO2 23 24 - 32 06/11 [facility] CHEM PANEL AGAP 13.6 10.0 - 06/11 [place] 20.0 [facility] CHEM PANEL Creatinine 0.75 0.50 - 06/11 [place] Lvl 1.40 [facility] CHEM PANEL Glucose Lvl 80 70 - 99 06/11 [facility] CHEM PANEL BUN 5 7 - 22 06/11 [facility] CHEM PANEL Sodium Lvl 138 135 - 145 06/11 [facility] HEMATOLOGY Hgb 14.1 14.0 - 06/11 [place] 18.0 [facility] HEMATOLOGY RBC 4.55 4.70 - 06/11 [place] 6.10 [facility] HEMATOLOGY WBC 8.5 3.7 - 10.4 06/11 [facility] HEMATOLOGY Hct 41.0 42.0 - 06/11 [place] 54.0 [facility] HEMATOLOGY MCV 90.1 80.0 - 06/11 [place] 94.0 [facility] HEMATOLOGY MCH 30.9 27.0 - 06/11 [place] 31.0 [facility] HEMATOLOGY MCHC 34.3 32.0 - 06/11 [place] 36.0 [facility] HEMATOLOGY MPV 8.4 7.4 - 10.4 06/11 [facility] HEMATOLOGY Platelet 164 133 - 450 06/11 [facility] HEMATOLOGY RDW 13.8 11.5 - 06/11 14.5 [facility] HEMATOLOGY Eosinophils # 0.1 0.0 - 0.5 06/11 [facility] HEMATOLOGY Segs-Bands # 6.7 1.5 - 8.1 06/11 [facility] HEMATOLOGY Lymphocytes # 1.1 1.0 - 5.5 06/11 [facility] HEMATOLOGY Monocytes # 0.6 0.0 - 0.8 06/11 [facility] HEMATOLOGY Monocytes 7.0 2.0 - 12.0 06/11 [facility] HEMATOLOGY Segs 78.6 45.0 - 06/11 [place] 75.0 [facility] HEMATOLOGY Lymphocytes 13.0 20.0 - 06/11 [place] 40.0 [facility] HEMATOLOGY Basophils 0.5 0.0 - 1.0 06/11 [facility] HEMATOLOGY Eosinophils 0.9 0.0 - 4.0 06/11 [facility] CHEM PANEL Amylase Lvl 94 25 - 115 06/10 [facility] CHEM PANEL Lipase Lvl 337 73 - 393 06/10 [facility] CHEM PANEL AST 56 0 - 37 06/10 2016 [facility] CHEM PANEL Alk Phos 152 39 - 136 06/10 2016 [facility] CHEM PANEL ALT 291 0 - 65 06/10 [facility] CHEM PANEL Bili Total 0.8 0.2 - 1.3 06/10 2016 [facility] CHEM PANEL Bili Direct 0.2 0.0 - 0.3 06/10 [facility] CHEM PANEL Bili Indirect 0.6 0.0 - 1.0 06/10 [facility] CHEM PANEL Globulin 3.5 2.7 - 4.2 06/[address] CHEM PANEL A/G Ratio 0.9 0.7 - 1.6 06/10 [facility] CHEM PANEL Total Protein 6.8 6.4 - 8.4 06/10 [facility] CHEM PANEL Albumin Lvl 3.3 3.5 - 5.0 06/10 [facility] CHEM PANEL eGFR 113 06/10 Result Comment: The Medical eGFR is Center calculated using the CKD-EPI formula. In most young, healthy individuals the eGFR will be >90 mL/min/1.73m2 . The eGFR declines with age. An eGFR of 60-89 may be normal in some populations, particularly the elderly, for whom the CKD-EPI formula has not been extensively validated. Use of the eGFR is not recommended in the following populations:< br/>
Sandi viduals with unstable creatinine concentration s, including patients and those with serious co-morbid conditions.<b r/>
Patie nts with extremes in muscle mass or diet.

The data above are obtained from the National Kidney Disease Education Program (NKDEP) which additionally recommends that when the eGFR is used in patients with extremes of body mass index for purposes of drug dosing, the eGFR should be multiplied by the estimated BMI. CHEM PANEL Potassium Lvl 3.6 3.5 - 5.1 06/10 [facility] CHEM PANEL Sodium Lvl 141 135 - 145 06/10 [facility] CHEM PANEL Creatinine 0.88 0.50 - 06/10 [facility] Lvl 1.40 [facility] CHEM PANEL BUN 11 7 - 22 06/10 2016 [facility] CHEM PANEL Glucose Lvl 157 70 - 99 06/10 [facility] CHEM PANEL Calcium Lvl 8.2 8.5 - 10.5 06/10 [facility] CHEM PANEL Chloride Lvl 106 95 - 109 06/10 [facility] CHEM PANEL CO2 25 24 - 32 06/10 [facility] CHEM PANEL AGAP 13.6 10.0 - 06/10 20. [facility] CHEM PANEL Magnesium Lvl 2.2 1.8 - 2.4 06/10 [facility] CHEM PANEL Phosphorus 2.3 2.5 - 4.5 06/10 [facility] HEMATOLOGY Platelet 179 133 - 450 06/10 [facility] HEMATOLOGY RDW 13.3 11.5 - 06/10 [place] 14.5 [facility] HEMATOLOGY MPV 8.2 7.4 - 10.4 06/10 [facility] HEMATOLOGY Hct 39.3 42.0 - 06/10 [place] 54.0 [facility] HEMATOLOGY MCH 31.3 27.0 - 06/10 [place] 31.0 [facility] HEMATOLOGY MCV 89.2 80.0 - 06/10 [place] 94.0 [facility] HEMATOLOGY MCHC 35.1 32.0 - 06/10 [place] 36.0 [facility] HEMATOLOGY WBC 10.3 3.7 - 10.4 06/10 [facility] HEMATOLOGY RBC 4.41 4.70 - 06/10 [place] 6.10 [facility] HEMATOLOGY Hgb 13.8 14.0 - 06/10 [place] 18.0 [facility] HEMATOLOGY Eosinophils 0.1 0.0 - 4.0 06/10 s [facility] HEMATOLOGY Lymphocytes # 1.1 1.0 - 5.5 06/10 [place] [facility] HEMATOLOGY Segs-Bands # 8.5 1.5 - 8.1 06/10 Brian as /2016 [facility] HEMATOLOGY Monocytes # 0.6 0.0 - 0.8 06/10 a s [facility] HEMATOLOGY Segs 83.1 45.0 - 06/10 [place] 75.0 [facility] HEMATOLOGY Lymphocytes 10.8 20.0 - 06/10 [place] 40.0 [facility] HEMATOLOGY Monocytes 5.6 2.0 - 12.0 06/10 [facility] HEMATOLOGY Basophils 0.4 0.0 - 1.0 06/10 [facility] CHEM PANEL Lipase Lvl 3772 73 - 393 06/09 [facility] CHEM PANEL Amylase Lvl 435 25 - 115 06/09 [facility] BLOOD BANK Antibody Scrn Negative 06/08 [place] as RESULTS (06/08/17 6:25 PM) /2016 [facility] BLOOD BANK ABO/Rh A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 Social History Date Source Social History TypeResponse 05/22/2017 [facility] Substance Abuse Use: None. Sexual Sexually active: Yes. Exercise Exercise duration: 4. Employment/School Status: Employed. Alcohol Current, Type Beer. Frequency: 1-2 times per month. Smoking Status Current every day smoker; Type: Chewing tobacco; Started at age: 23.0; Ready to change: Yes; Concerns about tobacco use in household: No; Exposed at work; Cigarette Smoking Last 365 Days No; Reg Smoking Cessation Counseling No Social History TypeResponse 05/22/2017 [facility] Substance Abuse Use: None. Sexual Sexually active: Yes. Exercise Exercise duration: 4. Employment/School Status: Employed. Alcohol Current, Type Beer. Frequency: 1-2 times per month. Smoking Status Current every day smoker; Type: Chewing tobacco; Exposed at work; Lives with someone who smokes; Cigarette Smoking Last 365 Days Yes; Reg Smoking Cessation Counseling Yes Family History No Data Provided for This Section Advance Directives No Data Provided for This Section Functional Status No Data Provided for This Section
[2020-02-20 14:27] VITALS: BP 118/76; TEMP 97.8; O2SAT 99
== END 2020-02-20 14:20 | disposition home or self-care (01) ==
LOC: ER 12:11
DX: U07.1 COVID-19 (principal); B34.9 Viral infection, unspecified; I10 Essential (primary) hypertension; Z88.5 Allergy status to narcotic agent
CPT/HCPCS: 71045; 87070; 87081; 99284; U0001

== ENCOUNTER 2023-07-24 13:24 | Emergency (ER) | payer BC, SELFPAY ==
--- OUTSIDE RECORDS SUMMARY | 2023-07-24 13:31 | XMS REPORT | Continuity of Care Document ---
:1985 Author Organization [facility] t Address [address] [facility] [address] [place] [address] Care Team Providers Name Role Phone Alexandro Martinez Attending Clinician Bijan Mcneill Attending Clinician Boy Olivera Attending Clinician Bijan Mcneill Admitting Clinician Boy Olivera Admitting Clinician Problems Condition Condition Condition Status Onset Resolution Last Treating Co mments Source Name Details Category Date Date Treatment Clinician Date FOLLOW UP FOLLOW UP Diagnosis Active 2016-082017-06-21 Memoria Active 11:36:00 l 06/13/2017 00:00: Urban rankin [address] ACUTE ACUTE Diagnosis Active 2016-082017-06-09 Mem oria GALLBLADDE GALLBLADDE 14:01:00 l R R Active 00:00: [place] 06/08/2017 00 [facility] CONSULT CONSULT Diagnosis Active 2017-05-29 Memoria FOR FOR 05-23 13:38:00 l GALLSTONES GALLSTONES 00:00: Esteban naranjo Active 00 05/23/2017 [facility] ACUTE ACUTE Diagnosis Active 2017-05-22 Mem oria CHOLECYSTI CHOLECYSTI 05-21 15:14:00 l TIS TIS 00:00: Tre[place] Active 00 [facility] [place] STONE IN STONE IN Diagnosis Active 2017-05-21 [place] GALBLADDER GALBLADDER 05-21 16:16:00 l Active 00:00: [place] 05/21/2017 [facility] Morbid Morbid Problem Active 2017-06-24 Pepe neli obesity obesity 01:15:38 l (disorder) (disorder) Esteban naranjo Active Problem 06/24/2017 [facility] Pain Pain Problem Active 2017-06-24 Memor ia (finding) (finding) 01:15:38 l Active [place] Problem 06/24/2017 [facility] Rib pain Rib pain Problem Active 2017-06-24 Memoria (finding) (finding) 01:15:38 l Active [place] Problem 06/24/2017 [facility] Tracheosto Tracheost Problem Resolve 2017-06-24 Memoria my present saundra d 01:15:38 l (finding) present Urban n (finding) Resolved Problem 06/24/2017 [facility] Feeding Feeding Problem Resolve 2017-06-24 2017-06-24 Memoria catheter, catheter, d - 01:15:38 01:15:38 l device device 00:00: Trlel (physical (physical 00 object) object) Resolved 12/15/2009 Problem 06/24/2017 inserted ENDO [place] [facility] Allergies, Adverse Reactions, Alerts This patient has no known allergies or adverse reactions. Social History Social Habit Start Date Stop Date Quantity Comments Source Social History 2017-05-22 2017-05-22 [facility] 01:57:04 01:57:04 Medications Ordered Filled Start Stop Current Ordering Indication Dosage Frequency Signature Comments Components Source Medication Medication Date Date Medication? Clinician (SIG) Name Name Bisacodyl 2016-08 No Notes: Memori a 0-16 (Same As: l 15:27: Dulcolax, [place] 00 Bisco-Lax) Bisacodyl 2016-08 No Notes: Memori a 0-16 (Same As: l 15:27: Dulcolax, [place] 00 Bisco-Lax) Bacitracin 2016-08 Yes 1 appl, Pepe neli 0.5 UNT/MG 0-16 TOP, QID, l / Polymyxin 15:14: # 30 gm, 0 [place] B 10 UNT/MG 00 Refill(s), Topical Pharmacy: Ointment [facility] [id number] tramadol 2016-08 Yes 100 mg = 2 Mem oria hydrochlori 0-16 tab, PO, l de 50 MG 15:14: Q6H, PRN Anjelica nn Oral Tablet 00 Pain Score 1-3, X 7 day, # 56 tab, 0 Refill(s) Acetaminoph 2016-08 Yes 1 tab, PO, Memoria en 325 MG / 0-16 Q4H, PRN l Hydrocodone 15:14: Pain Score [place] Bitartrate 00 4-6, # 30 10 MG Oral tab, 0 Tablet Refill(s), [[place] given to ] patient Margarito Acosta 2016-08 Yes 2 tab, PO, Pepe neli oral tablet 0-16 Bedtime, X l 15:14: 15 day, # [place] 00 30 tab, 0 Refill(s), Pharmacy: [facility] POLYETHYLEN 2016-08 Yes 17 gm, PO, Memoria E GLYCOL 0-16 Daily, X l 3350 142 15:14: 15 day, # Herm carlyn MG/ML Oral 00 255 gm, 0 Solution Refill(s), [Miralax] Pharmacy: [facility] Bacitracin 2016-08 Yes 1 appl, Pepe neli 0.5 UNT/MG 0-16 TOP, QID, l / Polymyxin 15:14: # 30 gm, 0 [place] B 10 UNT/MG 00 Refill(s), Topical Pharmacy: Ointment [facility] tramadol 2016-08 Yes 100 mg = 2 Mem oria hydrochlori 0-16 tab, PO, l de 50 MG 15:14: Q6H, PRN Anjelica nn Oral Tablet 00 Pain Score 1-3, X 7 day, # 56 tab, 0 Refill(s) Acetaminoph 2016-08 Yes 1 tab, PO, Memoria en 325 MG / 0-16 Q4H, PRN l Hydrocodone 15:14: Pain Score [place] Bitartrate 00 4-6, # 30 10 MG Oral tab, 0 Tablet Refill(s), [[place] given to ] patient Margarito Acosta 2016-08 Yes 2 tab, PO, Pepe neli oral tablet 0-16 Bedtime, X l 15:14: 15 day, # [place] 00 30 tab, 0 Refill(s), Pharmacy: [facility] POLYETHYLEN 2016-08 Yes 17 gm, PO, Memoria E GLYCOL 0-16 Daily, X l 3350 142 15:14: 15 day, # Herm carlyn MG/ML Oral 00 255 gm, 0 Solution Refill(s), [Miralax] Pharmacy: [facility] [id number] bacitracin- 2016-08 No Notes: Pepe neli polymyxin B 0-15 (Same As: l topical 18:00: Polysporin Herm carlyn 00 ) Neosporin 2016-08 No 1 appl, Memor ia 0-15 Route: l 18:00: TOP, QID, [place] 00 Drug form: OINT, Start date: 06/11/17 13:00:00 CDT, Duration: 30 day, Stop date: 07/11/17 9:00:00 RCP bacitracin- 2016-08 No Notes: Pepe neli polymyxin B 0-15 (Same As: l topical 18:00: Polysporin Herm carlyn 00 ) Neosporin 2016-08 No 1 appl, Memor ia 0-15 Route: l 18:00: TOP, QID, [place] 00 Drug form: OINT, Start date: 06/11/17 13:00:00 CDT, Duration: 30 day, Stop date: 07/11/17 9:00:00 RCP remove 2016-08 No Notes: Memoria patch 0-15 Remove old l 17:00: patch [place] 00 before applicatio n of new patch. WASTE: F/P - P Waste Black; E - P Waste Black Nicotine 2016-08 No Notes: Memoria 0-15 (Same as: l 17:00: Habitrol) [place] 00 "Remove old patch before applicatio n of new patch" WASTE: F/P - P Waste Black; E - P Waste Black remove 2016-08 No Notes: Memoria patch 0-15 Remove old l 17:00: patch [place] 00 before applicatio n of new patch. WASTE: F/P - P Waste Black; E - P Waste Black Nicotine 2016-08 No Notes: Memoria 0-15 (Same as: l 17:00: Habitrol) [place] 00 "Remove old patch before applicatio n of new patch" WASTE: F/P - P Waste Black; E - P Waste Black Habitrol 2016-08 No 21 mg, Memoria 0-15 Route: l 16:00: TOP, Drug [place] 00 form: ERFILM, Q24H, Dosing Weight 118.864, kg, Start date: 06/11/17 11:00:00 CDT, Duration: 30 day, Stop date: 07/10/17 11:00:00 RCP Habitrol 2016-08 No 21 mg, Memoria 0-15 Route: l 16:00: TOP, Drug [place] 00 form: ERFILM, Q24H, Dosing Weight 118.864, kg, Start date: 06/11/17 11:00:00 CDT, Duration: 30 day, Stop date: 07/10/17 11:00:00 RCP Dulcolax 2016-08 No Notes: Memoria Laxative 0-15 (Same As: l 15:31: Dulcolax, [place] 00 Correctol) (Do Not Crush) "Do Not Crush" Dulcolax 2016-08 No Notes: Memoria Laxative 0-15 (Same As: l 15:31: Dulcolax, [place] 00 Correctol) (Do Not Crush) "Do Not Crush" Tramadol 2016-08 No Notes: Not Mem oria 0-15 to exceed l 15:30: 400mg/day. [place] 00 (Same As: Ultram) Tramadol 2016-08 No Notes: Not Mem oria 0-15 to exceed l 15:30: 400mg/day. [place] 00 (Same As: Ultram) Acetaminoph 2016-08 No Notes: Do M emoria en 325 MG / 0-15 not exceed l Hydrocodone 15:29: 4gm/day of [place] Bitartrate 00 acetaminop 10 MG Oral hen. (Same Tablet as: [place] [[place] 325/10) 10/325] Acetaminoph 2016-08 No Notes: Do M emoria en 325 MG / 0-15 not exceed l Hydrocodone 15:29: 4gm/day of [place] Bitartrate 00 acetaminop 10 MG Oral hen. (Same Tablet as: [place] [[place] 325/10) 10/325] Docusate 2016-08 No Notes: Memoria Sodium 100 0-14 (Same as: l MG Oral 22:00: Colace) Tre[place] Capsule 00 (Do Not [Colace] Crush) Docusate 2016-08 No Notes: Memoria Sodium 100 0-14 (Same as: l MG Oral 22:00: Colace) [place] Capsule 00 (Do Not [Colace] Crush) Cetirizine 2016-08 No Notes: Memor ia 0-14 (Same As: l 16:00: Zyrtec) [place] 00 Cetirizine 2016-08 No Notes: Memor ia 0-14 (Same As: l 16:00: Zyrtec) [place] 00 tramadol 2016-08 No Notes: Not Mem oria hydrochlori 0-14 to exceed l de 50 MG 14:46: 400mg/day. Her irizarry Oral Tablet 00 (Same As: Ultram) Acetaminoph 2016-08 No Notes: Pepe neli en 325 MG / 0-14 (Same as: l Hydrocodone 14:46: [place] Anjelica nn Bitartrate 00 325/5) Do 5 MG Oral not exceed Tablet 4gm/day of [[place] acetaminop 5/325] hen. tramadol 2016-08 No Notes: Not Mem oria hydrochlori 0-14 to exceed l de 50 MG 14:46: 400mg/day. Her irizarry Oral Tablet 00 (Same As: Ultram) Acetaminoph 2016-08 No Notes: Pepe neli en 325 MG / 0-14 (Same as: l Hydrocodone 14:46: [place] Anjelica nn Bitartrate 00 325/5) Do 5 MG Oral not exceed Tablet 4gm/day of [[place] acetaminop 5/325] hen. heparin 2016-08 No Notes: Memoria 0-14 porcine l 13:00: heparin [place] 00 heparin 2016-08 No Notes: Memoria 0-14 porcine l 13:00: heparin [place] 00 remove 2016-08 No Notes: Memoria patch 0-14 WASTE: F/P l 07:00: - P Waste [place] 00 Black; E - P Waste Black remove 2016-08 No Notes: Memoria patch 0-14 WASTE: F/P l 07:00: - P Waste [place] 00 Black; E - P Waste Black D5W 1/2NS 2016-08 No 1,000 mL, Mem oria 1,000 mL 0-13 Rate: 50 l 18:50: ml/hr, [place] 00 Infuse over: 20 hr, Route: IV, Dosing Weight 118.864 kg, Total Volume: 1,000, Start date: 06/09/17 13:50:00 CDT, Stop date: 07/09/17 13:49:00 RCP D5W 1/2NS 2016-08 No 1,000 mL, Mem oria 1,000 mL 0-13 Rate: 50 l 18:50: ml/hr, Infuse over: 20 hr, Route: IV, Dosing Weight 118.864 kg, Total Volume: 1,000, Start date: 06/09/17 13:50:00 CDT, Stop date: 07/09/17 13:49:00 RCP glycopyrrol 2016-08 No Route: IV, Memoria ate (ANES) 0-13 Drug form: l 15:44: INJ, ONCE, Stop date: 06/09/17 10:44:00 CDT neostigmine 2016-08 No Route: IV, Memoria (ANES) 0-13 Drug form: l 15:44: INJ, ONCE, Stop date: 06/09/17 10:44:00 CDT glycopyrrol 2016-08 No Route: IV, Memoria ate (ANES) 0-13 Drug form: l 15:44: INJ, ONCE, Stop date: 06/09/17 10:44:00 CDT neostigmine 2016-08 No Route: IV, Memoria (ANES) 0-13 Drug form: l 15:44: INJ, ONCE, Stop date: 06/09/17 10:44:00 CDT ondansetron 2016-08 No Route: IV, Memoria (ANES) 0-13 Drug form: l 15:34: INJ, ONCE, Stop date: 06/09/17 10:34:00 CDT ketOROLAC 2016-08 No IV, ONCE Pepe neli (ANES) 0-13 l 15:34: [place] 00 ondansetron 2016-08 No Route: IV, Memoria (ANES) 0-13 Drug form: l 15:34: INJ, ONCE, Stop date: 06/09/17 10:34:00 CDT ketOROLAC 2016-08 No IV, ONCE Pepe neli (ANES) 0-13 l 15:34: [place] 00 hydromorpho 2016-08 No Route: IV, Memoria ne (ANES) 0-13 Drug form: l 14:02: INJ, ONCE, Stop date: 06/09/17 9:02:00 CDT hydromorpho 2016-08 No Route: IV, Memoria ne (ANES) 0-13 Drug form: l 14:02: INJ, ONCE, Stop date: 06/09/17 9:02:00 CDT ketAMINE 2016-08 No Route: IV, Mem oria (ANES) 0-13 Drug form: l 13:52: INJ, ONCE, Stop date: 06/09/17 8:52:00 CDT ketAMINE 2016-08 No Route: IV, Mem oria (ANES) 0-13 Drug form: l 13:52: INJ, ONCE, Stop date: 06/09/17 8:52:00 CDT famotidine 2016-08 No Route: IV, M emoria (ANES) 0-13 Drug form: l 13:42: INJ, ONCE, Stop date: 06/09/17 8:42:00 CDT dexamethaso 2016-08 No Route: IV, Memoria ne (ANES) 0-13 Drug form: l 13:42: INJ, ONCE, Stop date: 06/09/17 8:42:00 CDT succinylcho 2016-08 No Route: IV, Memoria line (ANES) 0-13 Drug form: l 13:42: INJ, ONCE, Stop date: 06/09/17 8:42:00 CDT fentaNYL 2016-08 No Route: IV, Mem oria (ANES) 0-13 Drug form: l 13:42: INJ, ONCE, Stop date: 06/09/17 8:42:00 CDT rocuronium 2016-08 No Route: IV, M emoria (ANES) 0-13 Drug form: l 13:42: INJ, ONCE, Stop date: 06/09/17 8:42:00 CDT lidocaine 2016-08 No Route: IV, Me moria (ANES) 0-13 Drug form: l 13:42: INJ, ONCE, Stop date: 06/09/17 8:42:00 CDT propofol 2016-08 No Route: IV, Mem oria (ANES) 0-13 Drug form: l 13:42: INJ, ONCE, Stop date: 06/09/17 8:42:00 CDT metoclopram 2016-08 No Route: IV, Memoria lon (ANES) 0-13 Drug form: l 13:42: INJ, ONCE, [place] 00 Stop date: 06/09/17 8:42:00 CDT sodium 2016-08 No Route: IV, Memor ia bicarbonate 0-13 Drug form: l (ANES) 13:42: INJ, ONCE, Anjelica Stop date: 06/09/17 8:42:00 CDT famotidine 2016-08 No Route: IV, M emoria (ANES) 0-13 Drug form: l 13:42: INJ, ONCE, Stop date: 06/09/17 8:42:00 CDT dexamethaso 2016-08 No Route: IV, Memoria ne (ANES) 0-13 Drug form: l 13:42: INJ, ONCE, Stop date: 06/09/17 8:42:00 CDT succinylcho 2016-08 No Route: IV, Memoria line (ANES) 0-13 Drug form: l 13:42: INJ, ONCE, Stop date: 06/09/17 8:42:00 CDT fentaNYL 2016-08 No Route: IV, Mem oria (ANES) 0-13 Drug form: l 13:42: INJ, ONCE, Stop date: 06/09/17 8:42:00 CDT rocuronium 2016-08 No Route: IV, M emoria (ANES) 0-13 Drug form: l 13:42: INJ, ONCE, Stop date: 06/09/17 8:42:00 CDT lidocaine 2016-08 No Route: IV, Me moria (ANES) 0-13 Drug form: l 13:42: INJ, ONCE, Stop date: 06/09/17 8:42:00 CDT propofol 2016-08 No Route: IV, Mem oria (ANES) 0-13 Drug form: l 13:42: INJ, ONCE, Stop date: 06/09/17 8:42:00 CDT metoclopram 2016-08 No Route: IV, Memoria lon (ANES) 0-13 Drug form: l 13:42: INJ, ONCE, Stop date: 06/09/17 8:42:00 CDT sodium 2016-08 No Route: IV, Memor ia bicarbonate 0-13 Drug form: l (ANES) 13:42: INJ, ONCE, Anjelica nn Stop date: 06/09/17 8:42:00 CDT ceFAZolin 2016-08 No Route: IV, Me moria (ANES) 0-13 Drug form: l 13:27: INJ, ONCE, [place] Stop date: 06/09/17 8:27:00 CDT ceFAZolin 2016-08 No Route: IV, Me moria (ANES) 0-13 Drug form: l 13:27: INJ, ONCE, [place] 00 Stop date: 06/09/17 8:27:00 CDT Hydralazine 2016-08 No 10 mg, Pepe neli 0-13 Route: l 13:19: IVP, [place] 00 Q20Min, Dosing Weight 118.864, kg, PRN Elevated BP, Start date: 06/09/17 8:19:00 CDT, Duration: 2 doses or times, Stop date: Limited # of times Labetalol 2016-08 No 10 mg, Memori a 0-13 Route: l 13:19: IVP, [place] 00 Q5Min, Dosing Weight 118.864, kg, PRN Elevated BP, Start date: 06/09/17 8:19:00 CDT, Duration: 5 doses or times, Stop date: Limited # of times Naloxone 2016-08 No 0.4 mg, Memori a 0-13 Route: l 13:19: IVP, [place] 00 Q2MIN, Dosing Weight 118.864, kg, PRN Narcotic Reversal, Start date: 06/09/17 8:19:00 CDT, Duration: 8 doses or times, Stop date: Limited # of times Ondansetron 2016-08 No 4 mg, Memor ia 0-13 Route: l 13:19: IVP, ONCE, Dosing Weight 118.864, kg, PRN Nausea & Vomiting, Start date: 06/09/17 8:19:00 CDT Flumazenil 2016-08 No 0.2 mg, Pepe neli 0-13 Route: l 13:19: IVP, PRN, [place] 00 Dosing Weight 118.864, kg, PRN Benzodiaze pine Reversal, Initial dose, Start date: 06/09/17 8:19:00 CDT, Duration: 30 day, Stop date: 07/09/17 7:18:00 RCP Hydromorpho 2016-08 No 0.5 mg, Mem oria ne 0-13 Route: l 13:19: IVP, [place] 00 Q5Min, Dosing Weight 118.864, kg, PRN Pain Score 7-10, Start date: 06/09/17 8:19:00 CDT, Duration: 4 doses or times, Stop date: Limited # of times Hydralazine 2016-08 No 10 mg, Pepe neli 0-13 Route: l 13:19: IVP, [place] 00 Q20Min, Dosing Weight 118.864, kg, PRN Elevated BP, Start date: 06/09/17 8:19:00 CDT, Duration: 2 doses or times, Stop date: Limited # of times Labetalol 2016-08 No 10 mg, Memori a 0-13 Route: l 13:19: IVP, [place] 00 Q5Min, Dosing Weight 118.864, kg, PRN Elevated BP, Start date: 06/09/17 8:19:00 CDT, Duration: 5 doses or times, Stop date: Limited # of times Naloxone 2016-08 No 0.4 mg, Memori a 0-13 Route: l 13:19: IVP, [place] 00 Q2MIN, Dosing Weight 118.864, kg, PRN Narcotic Reversal, Start date: 06/09/17 8:19:00 CDT, Duration: 8 doses or times, Stop date: Limited # of times Ondansetron 2016-08 No 4 mg, Memor ia 0-13 Route: l 13:19: IVP, ONCE, [place] 00 Dosing Weight 118.864, kg, PRN Nausea & Vomiting, Start date: 06/09/17 8:19:00 CDT Flumazenil 2016-08 No 0.2 mg, Pepe neli 0-13 Route: l 13:19: IVP, PRN, [place] 00 Dosing Weight 118.864, kg, PRN Benzodiaze pine Reversal, Initial dose, Start date: 06/09/17 8:19:00 CDT, Duration: 30 day, Stop date: 07/09/17 7:18:00 RCP Hydromorpho 2016-08 No 0.5 mg, Mem oria ne 0-13 Route: l 13:19: IVP, [place] 00 Q5Min, Dosing Weight 118.864, kg, PRN Pain Score 7-10, Start date: 06/09/17 8:19:00 CDT, Duration: 4 doses or times, Stop date: Limited # of times acetaminoph 2016-08 No Route: IV, Memoria en (ANES) 0-13 Drug form: l (ANES) 13:03: INJ, Start Anjelica nn date: 06/09/17 8:03:00 CDT, Stop date: 06/09/17 9:03:00 CDT acetaminoph 2016-08 No Route: IV, Memoria en (ANES) 0-13 Drug form: l (ANES) 13:03: INJ, Start Anjelica nn date: 06/09/17 8:03:00 CDT, Stop date: 06/09/17 9:03:00 CDT midazolam 2016-08 No Route: IV, Me moria (ANES) 0-13 Drug form: l 13:01: SOLN, [place] 00 ONCE, Stop date: 06/09/17 8:01:00 CDT midazolam 2016-08 No Route: IV, Me moria (ANES) 0-13 Drug form: l 13:01: SOLNTrell 00 ONCE, Stop date: 06/09/17 8:01:00 CDT Plasma-Lyte 2016-08 No Route: IV, Memoria A PH-7.4 0-13 Total l 1000 ml INJ 12:32: Volume: Her irizarry (ANES) 00 1,000, Start date: 06/09/17 7:32:00 CDT, Stop date: 06/09/17 8:32:00 CDT Plasma-Lyte 2016-08 No Route: IV, Memoria A PH-7.4 0-13 Total l 1000 ml INJ 12:32: Volume: Her irizarry (ANES) 00 1,000, Start date: 06/09/17 7:32:00 CDT, Stop date: 06/09/17 8:32:00 CDT Protonix 2017- No 40 mg, 1 Memor ia 0-13 tab, l 12:30: Route: PO, [place] 00 Drug form: ECTAB, BID-Before Meals, Start date: 06/09/17 7:30:00 CDT, Duration: 30 day, Stop date: 07/08/17 16:30:00 RCP Omeprazole 2017- No 20 mg, Memor ia 0-13 Route: PO, l 12:30: Drug form: [place] 00 ECCAP, BID-Before Meals, Dosing Weight 118.864, kg, Start date: 06/09/17 7:30:00 CDT, Duration: 30 day, Stop date: 07/08/17 16:30:00 RCP, Substitute Allowed Yes Protonix 2016- No 40 mg, 1 Memor ia 0-13 tab, l 12:30: Route: PO, [place] 00 Drug form: ECTAB, BID-Before Meals, Start date: 06/09/17 7:30:00 CDT, Duration: 30 day, Stop date: 07/08/17 16:30:00 RCP Omeprazole 2016- No 20 mg, Memor ia 0-13 Route: PO, l 12:30: Drug form: [place] 00 ECCAP, BID-Before Meals, Dosing Weight 118.864, kg, Start date: 06/09/17 7:30:00 CDT, Duration: 30 day, Stop date: 07/08/17 16:30:00 RCP, Substitute Allowed Yes Habitrol 2016-08 No Notes: Memoria 0-13 (Same as: l 07:00: Habitrol) "Remove old patch before applicatio n of new patch" WASTE: F/P - P Waste Black; E - P Waste Black Habitrol 2016-08 No Notes: Memoria 0-13 (Same as: l 07:00: Habitrol) "Remove old patch before applicatio n of new patch" WASTE: F/P - P Waste Black; E - P Waste Black Nicotine 2016-08 No Notes: Memoria 0-13 (Same as: l 03:30: Habitrol) "Remove old patch before applicatio n of new patch" WASTE: F/P - P Waste Black; E - P Waste Black Nicotine 2016-08 No Notes: Memoria 0-13 (Same as: l 03:30: Habitrol) "Remove old patch before applicatio n of new patch" WASTE: F/P - P Waste Black; E - P Waste Black Zosyn 2016-08 No Notes: Memoria 0-13 (Same as: l 02:17: Zosyn) Dosing based on Piperacill in component MEDICATION WASTE Product Size: 3375 mg Product Wasted: __0_ mg Zosyn 2016-08 No Notes: Memoria 0-13 (Same as: l 02:17: Zosyn) Dosing based on Piperacill in component MEDICATION WASTE Product Size: 3375 mg Product Wasted: __0_ mg Diazepam 2016-08 No Notes: Memoria 0-13 (Same as: l 02:00: Valium) Diazepam 2016-08 No Notes: Memoria 0-13 (Same as: l 02:00: Valium) diazepam 2016-08 Yes 5 mg = 1 Mem oria mg oral 0-13 tab, PO, l tablet 01:03: Bedtime, PRN Anxiety diazepam 5 2016-08 Yes 5 mg = 1 Mem oria mg oral 0-13 tab, PO, l tablet 01:03: Bedtime, PRN Anxiety Iohexol 2016-08 No 150 mL, Memoria 0-12 Route: l 23:22: IVP, Drug Form: SOLN, Dosing Weight 118.864, kg, ONCALL, STAT, Start date: 06/08/17 18:22:00 CDT, Duration: 1 doses or times, Dose = 2.2ml/kg, Max dose = 150ml -- "To be infused by Radiology Staff ONLY" Iohexol 2016-08 No 150 mL, Memoria 0-12 Route: l 23:22: IVP, Drug Form: SOLN, Dosing Weight 118.864, kg, ONCALL, STAT, Start date: 06/08/17 18:22:00 CDT, Duration: 1 doses or times, Dose = 2.2ml/kg, Max dose = 150ml -- "To be infused by Radiology Staff ONLY" Dilaudid 2016-08 No Notes: Memoria 0-12 Same as: l 21:32: Dilaudid [place] 00 Dilaudid 2016-08 No Notes: Memoria 0-12 Same as: l 21:32: Dilaudid [place] 00 Simethicone 2016-08 No Notes: Pepe neli 0-12 (Same as: l 21:04: Mylicon) [place] 00 Simethicone 2016-08 No Notes: Pepe neli 0-12 (Same as: l 21:04: Mylicon) [place] Protonix 2016-08 No Notes: For Mem oria 0-12 IV push l 21:03: reconstitu [place] 00 te with 10 ml 0.9% sodium chloride and push over 2 minutes. (Same as: Protonix) Protonix 2016-08 No Notes: For Mem oria 0-12 IV push l 21:03: reconstitu [place] 00 te with 10 ml 0.9% sodium chloride and push over 2 minutes. (Same as: Protonix) sodium 2016-08 No 1,000 mL, Memori a chloride 0-12 Rate: 150 l 0.9% 1000 20:38: ml/hr, Urban n ml INJ 00 Infuse 1,000 mL over: 6.7 hr, Route: IV, Dosing Weight 119.3 kg, Total Volume: 1,000, Start date: 06/08/17 15:38:00 CDT, Duration: 30 day, Stop date: 07/08/17 15:37:00 RCP sodium 2016-08 No 1,000 mL, Memori a chloride 0-12 Rate: 150 l 0.9% 1000 20:38: ml/hr, Urban n ml INJ 00 Infuse 1,000 mL over: 6.7 hr, Route: IV, Dosing Weight 119.3 kg, Total Volume: 1,000, Start date: 06/08/17 15:38:00 CDT, Duration: 30 day, Stop date: 07/08/17 15:37:00 RCP Glucagon 2016-08 No 1 mg, Memoria 0-12 Route: IM, l 20:34: Drug form: [place] 00 PDR/INJ, PRN, Dosing Weight 119.3, kg, PRN Blood Glucose Results, Start date: 06/08/17 15:34:00 CDT, Duration: 30 day, Stop date: 07/08/17 14:33:00 RCP Dextrose 2016-08 No 25 gm, 50 Pepe neli 50% Syringe 0-12 mL, Route: l 20:34: IVP, Drug Form: INJ, Dosing Weight 119.3, kg, PRN, PRN Blood Glucose Results, Start date: 06/08/17 15:34:00 CDT, Duration: 30 day, Stop date: 07/08/17 14:33:00 RCP Insulin 2016-08 No 60 units) Pepe neli regular 0-12 WASTE: F/P l 20:34: - Black; E [place] 00 - Municipal Trash Bin Stable for 28 days at room temperatur e Expires in days from ____Date Glucagon 2016-08 No 1 mg, Memoria 0-12 Route: IM, l 20:34: Drug form: [place] 00 PDR/INJ, PRN, Dosing Weight 119.3, kg, PRN Blood Glucose Results, Start date: 06/08/17 15:34:00 CDT, Duration: 30 day, Stop date: 07/08/17 14:33:00 RCP Dextrose 2016-08 No 25 gm, 50 Pepe neli 50% Syringe 0-12 mL, Route: l 20:34: IVP, Drug Form: INJ, Dosing Weight 119.3, kg, PRN, PRN Blood Glucose Results, Start date: 06/08/17 15:34:00 CDT, Duration: 30 day, Stop date: 07/08/17 14:33:00 RCP Insulin 2016-08 No 60 units) Pepe neli regular 0-12 WASTE: F/P l 20:34: - Black; E [place] 00 - [facility] Trash Bin Stable for 28 days at room temper[place] e Expires in days from ____Date Phenergan 2016-08 No Notes: Do Mem oria 0-12 not give l 20:27: IV push. [place] 00 (Same as: Phenergan) Dextrose 5% 2016-08 No 1,000 mL, M emoria with 0.45% 0-12 Rate: 150 l NaCl IV 20:27: ml/hr, Trell 1,000 mL 00 Infuse over: 6.7 hr, Route: IV, Dosing Weight 119.3 kg, Total Volume: 1,000, Start date: 06/08/17 15:27:00 CDT, Duration: 30 day, Stop date: 07/08/17 15:26:00 RCP Saline 2016-08 No Notes: Memoria Flush 0.9% 0-12 (Same as: l 20:27: BD [place] 00 Posiflush) Morphine 2016-08 No Notes: Memoria 0-12 (Same l 20:27: as:MORPhin [place] 00 e Sulfate) Phenergan 2016-08 No Notes: Do Mem oria 0-12 not give l 20:27: IV push. [place] 00 (Same as: Phenergan) Dextrose 5% 2016-08 No 1,000 mL, M emoria with 0.45% 0-12 Rate: 150 l NaCl IV 20:27: ml/hr, [place] 1,000 mL 00 Infuse over: 6.7 hr, Route: IV, Dosing Weight 119.3 kg, Total Volume: 1,000, Start date: 06/08/17 15:27:00 CDT, Duration: 30 day, Stop date: 07/08/17 15:26:00 RCP Saline 2016-08 No Notes: Memoria Flush 0.9% 0-12 (Same as: l 20:27: BD [place] 00 Posiflush) Morphine 2016-08 No Notes: Memoria 0-12 (Same l 20:27: as:MORPhin [place] 00 e Sulfate) Acetaminoph 2016-08 Yes 1 tab, PO, Memoria en 300 MG / 0-02 Q6H, 0 l Codeine 19:48: Refill(s) Anjelica nn Phosphate 00 30 MG Oral Tablet Acetaminoph 2016-08 Yes 1 tab, PO, Memoria en 300 MG / 0-02 Q6H, 0 l Codeine 19:48: Refill(s) Anjelica nn Phosphate 00 30 MG Oral Tablet Omeprazole No Route: PO, M emoria - Daily, l 14:00: Dosing [place] 00 Weight 121.818, kg, Start date: 05/23/17 9:00:00 CDT, Duration: 30 day, Stop date: 06/21/17 9:00:00 CDT Zyrtec No Notes: Memoria 05-23 [facility] Omeprazole No Route: PO, M emoria 05-23 Daily, l 14:00: Dosing Weight 121.818, kg, Start date: 05/23/17 9:00:00 CDT, Duration: 30 day, Stop date: 06/21/17 9:00:00 CDT Zyrtec No Notes: Memoria 05-23 (Same As: l 14:00: Zyrtec) Protonix No Notes: Memoria - Tablet l 12:30: should not [place] 00 be chewed or crushed. (Same as: Protonix) Protonix No Notes: Memoria - Tablet l 12:30: should not [place] 00 be chewed or crushed. (Same as: Protonix) Diazepam No Notes: Memoria 05-23 (Same as: l 02:00: Valium) Diazepam No Notes: [facility] 05-23 (Same as: l 02:00: Valium) Acetaminoph No 1 - 2 tab, Memoria en 300 MG / 9-25 PO, Q4H, l Codeine 19:56: PRN Pain, Anjelica nn Phosphate 00 X 2 day, # 30 MG Oral 20 tab, 0 Tablet Refill(s) [Tylenol with Codeine #3] Acetaminoph No 1 - 2 tab, Memoria en 300 MG / 9-25 PO, Q4H, l Codeine 19:56: PRN Pain, Anjelica nn Phosphate 00 X 2 day, # 30 MG Oral 20 tab, 0 Tablet Refill(s) [Tylenol with Codeine #3] Diazepam No Notes: [facility]oria 05-22 (Same as: l 03:23: Valium) Diazepam No Notes: [facility]oria 05-22 (Same as: l 03:23: Valium) Zyrtec Yes 10 mg, PO, Memor ia - Daily, 0 l 02:01: Refill(s) Omeprazole Yes See Memoria 925 Instructio l 02:01: ns, Omeprazole with magnesium 20.6 PO Daily, 0 Refill(s) Diazepam Yes 5 mg, PO, Pepe neli 05-22 Bedtime, 0 l 02:01: Refill(s) Zyrtec Yes 10 mg, PO, Memor ia 25 Daily, 0 l 02:01: Refill(s) Omeprazole Yes See Memoria 05-22 Instructio l 02:01: ns, Omeprazole with magnesium 20.6 PO Daily, 0 Refill(s) Diazepam Yes 5 mg, PO, Pepe neli 05-22 Bedtime, 0 l 02:01: Refill(s) Ondansetron No Notes: Pepe neli 05-21 (Same as: l 21:11: Zofran) MEDICATION WASTE Product Size: 4 mg Product Wasted: ___ mg Acetaminoph No Notes: Do M emoria en 05-21 not exceed l 21:11: 4 gm/day. (Same as: Tylenol) Acetaminoph No Notes: Pepe neli en 325 MG / 05-21 (Same as: l Hydrocodone 21:11: [place] Anjelica nn Bitartrate 00 325/5) Do 5 MG Oral not exceed Tablet 4gm/day of acetaminop hen. Morphine No 2 mg, 1 Memori a 9-24 mL, Route: l 21:11: IVP, Drug form: SOLN, Q4H, Dosing Weight 120.455, kg, PRN Pain Score 7-10, Start date: 05/21/17 16:11:00 CDT, Duration: 30 day, Stop date: 06/20/17 16:10:00 CDT Ondansetron No Notes: Pepe neli 05-21 (Same as: l 21:11: Zofran) MEDICATION WASTE Product Size: 4 mg Product Wasted: ___ mg Acetaminoph No Notes: Do M emoria en 05-21 not exceed l 21:11: 4 gm/day. [place] 00 (Same as: Tylenol) Acetaminoph 2016- No Notes: Pepe enli en 325 MG / -24 (Same as: l Hydrocodone 21:11: [place] Anjelica nn Bitartrate 00 325/5) Do 5 MG Oral not exceed Tablet 4gm/day of acetaminop hen. Morphine 2016- No 2 mg, 1 Memori a 9-24 mL, Route: l 21:11: IVP, Drug [place] form: SOLN, Q4H, Dosing Weight 120.455, kg, PRN Pain Score 7-10, Start date: 05/21/17 16:11:00 CDT, Duration: 30 day, Stop date: 06/20/17 16:10:00 CDT Zosyn 2016- No Notes: Memoria 05-21 (Same as: l 20:50: Zosyn) [place] Dosing based on Piperacill in component MEDICATION WASTE Product Size: 3375 mg Product Wasted: ___ mg Zosyn No Notes: Memoria 05-21 (Same as: l 20:50: Zosyn) [place] Dosing based on Piperacill in component MEDICATION WASTE Product Size: 3375 mg Product Wasted: ___ mg Morphine 2016- No 4 mg, Memoria 05-21 Route: l 20:35: IVP, ONCE, [place] 00 Dosing Weight 120.455, kg, Start date: 05/21/17 15:35:00 CDT, Stop date: 05/21/17 15:35:00 CDT Sodium 2016-0 No 1,000 mL, Memori a Chloride 24 1,000 l 0.9% 20:35: ml/hr, [place] (Bolus) IV 00 Infuse Over: 1 hr, Route: IV, 1,000, Drug form: INJ, ONCE, Priority: STAT, Dosing Weight 120.455 kg, Start date: 05/21/17 15:35:00 CDT, Duration: 1 doses or times, Stop date: 05/21/17 15:35:00 CDT Sodium 2016-0 No 1,000 mL, Memori a Chloride 24 1,000 l 0.9% 20:35: ml/hr, [place] (Bolus) IV 00 Infuse Over: 1 hr, Route: IV, 1,000, Drug form: INJ, ONCE, Priority: STAT, Dosing Weight 120.455 kg, Start date: 05/21/17 15:35:00 CDT, Duration: 1 doses or times, Stop date: 05/21/17 15:35:00 CDT Morphine 2017-0 No 4 mg, Memoria 05-21 Route: l 20:35: IVP, ONCE, [place] 00 Dosing Weight 120.455, kg, Start date: 05/21/17 15:35:00 CDT, Stop date: 05/21/17 15:35:00 CDT Ondansetron 2017-0 No Notes: Pepe neli 9-24 (Same as: l 19:13: Zofran) [place] 00 MEDICATION WASTE Product Size: 4 mg Product Wasted: ___ mg Sodium 2017-0 No 1,000 mL, Memori a Chloride 9-24 1000 l 0.9% 19:13: ml/hr, [place] (Bolus) IV 00 Infuse Over: 1 hr, Route: IV, 1,000, Drug form: INJ, ONCE, Priority: STAT, Dosing Weight 120.455 kg, Start date: 05/21/17 14:13:00 CDT, Duration: 1 doses or times, Stop date: 05/21/17 14:13:00 CDT Ondansetron 2017-0 No Notes: Pepe neli 9-24 (Same as: l 19:13: Zofran) [place] 00 MEDICATION WASTE Product Size: 4 mg Product Wasted: ___ mg Sodium 2017-0 No 1,000 mL, Memori a Chloride 9-24 1000 l 0.9% 19:13: ml/hr, [place] (Bolus) IV 00 Infuse Over: 1 hr, Route: IV, 1,000, Drug form: INJ, ONCE, Priority: STAT, Dosing Weight 120.455 kg, Start date: 05/21/17 14:13:00 CDT, Duration: 1 doses or times, Stop date: 05/21/17 14:13:00 CDT Vital Signs Vital Name Observation Time Observation Value Comments Source BMI Calculated 2017-06-21 17:10:00 Avery al [facility] Weight 2017-06-21 17:10:00 [facility] Height 2017-06-21 17:10:00 180.3 cm [facility] Heart Rate 2017-06-21 17:10:00 [facility] [place] Respitory Rate 2017-06-21 17:10:00 [facility] al [place] Systolic (mm Hg) 2017-06-21 17:10:00 Pepe rial [place] Diastolic (mm Hg) 2017-06-21 17:10:00 Mem orial [place] Heart Rate 2017-06-12 16:38:00 [facility] [place] Temperature Oral (F) 2017-06-12 16:38:00 97.7 F [facility] [place] Respitory Rate 2017-06-12 16:38:00 [facility] [place] Systolic (mm Hg) 2017-06-12 16:38:00 Pepe rial [place] Diastolic (mm Hg) 2017-06-12 16:38:00 Mem orial [place] Temperature Oral (F) 2017-06-12 12:34:00 97.9 F [facility] [place] Heart Rate 2017-06-12 12:34:00 [facility] [place] Respitory Rate 2017-06-12 12:34:00 Memori al [place] Systolic (mm Hg) 2017-06-12 12:34:00 Pepe rial [place] Diastolic (mm Hg) 2017-06-12 12:34:00 Mem orial [place] Temperature Oral (F) 2017-06-12 09:44:00 97.5 F [facility] [place] Heart Rate 2017-06-12 09:44:00 [facility] [place] Respitory Rate 2017-06-12 09:44:00 [facility] al [place] Systolic (mm Hg) 2017-06-12 09:44:00 Pepe rial [place] Diastolic (mm Hg) 2017-06-12 09:44:00 Mem orial [place] Weight 2017-06-08 22:49:00 [facility] [place] Height 2017-06-08 21:21:00 180.34 cm [facility] [place] BMI Calculated 2017-06-08 21:21:00 [facility] al [place] Weight 2017-06-08 21:21:00 [facility] [place] Weight 2017-05-29 19:28:00 [facility] [place] BMI Calculated 2017-05-29 19:28:00 [facility] [place] Height 2017-05-29 19:28:00 182.8 cm [facility] [place] Respitory Rate 2017-05-29 19:28:00 [facility] [place] Systolic (mm Hg) 2017-05-29 19:28:00 Pepe rial [place] Diastolic (mm Hg) 2017-05-29 19:28:00 Mem orial [place] Heart Rate 2017-05-29 19:28:00 [facility] [place] Temperature Oral (F) 2017-05-22 16:30:00 97.9 F [facility] [place] Heart Rate 2017-05-22 16:30:00 [facility] [place] Systolic (mm Hg) 2017-05-22 16:30:00 Pepe rial [place] Diastolic (mm Hg) 2017-05-22 16:30:00 Mem orial [place] Heart Rate 2017-05-22 13:00:00 [facility] [place] Temperature Oral (F) 2017-05-22 13:00:00 98.9 F [facility] [place] Respitory Rate 2017-05-22 13:00:00 [facility] [place] Systolic (mm Hg) 2017-05-22 13:00:00 Pepe rial [place] Diastolic (mm Hg) 2017-05-22 13:00:00 Mem orial [place] Temperature Oral (F) 2017-05-22 09:00:00 97.8 F [facility] [place] Heart Rate 2017-05-22 09:00:00 [facility] [place] Systolic (mm Hg) 2017-05-22 09:00:00 Pepe rial [place] Diastolic (mm Hg) 2017-05-22 09:00:00 Mem orial [place] Respitory Rate 2017-05-22 09:00:00 Mem[facility] al [place] Respitory Rate 2017-05-22 05:00:00 [facility] [place] Height 2017-05-22 01:50:00 182.88 cm [facility] [place] Weight 2017-05-22 01:50:00 [facility] [place] BMI Calculated 2017-05-22 01:50:00 [facility] [place] Height 2017-05-21 18:16:00 182.88 cm [facility] [place] BMI Calculated 2017-05-21 18:16:00 [facility] [place] Weight 2017-05-21 18:16:00 [facility] [place] Procedures Procedure Date / Time Performed Performing Clinician Sourc e Abdominal wall [facility] procedure<sup>1</sup> Encounters Start End Encounter Admission Attending Care Care Encounter Source Date/Time Date/Time Type Type Clinicians Facility Department ID 2020-04-15 2020-04-15 Outpatient [facility] PDPFECK [facility] 00:00:00 00:00:00 [id number] 2017-06-21 2017-06-22 Outpatient nullFlavo [facility] [id number] Mem[facility] 16:36:00 04:59:00 r [place] 02 l Transplant [facility] nn Ctr 2017-06-21 2017-06-22 Outpatient nullFlavo [facility] [id number] [facility] 16:36:00 04:59:00 r [place] 02 l Transplant Anjelica nn Ctr 2017-06-21 2017-06-21 Outpatient Alexandro Martinez [facility] [id number] 11:36:00 23:59:00 Atilio 02 2017-06-08 2017-06-12 Inpatient nullFlavo [facility] [id number] Mem[facility] 20:31:00 18:20:[address] 2017-06-08 2017-06-12 Inpatient nullFlavo [facility] [id number] Mem[facility] 20:31:00 18:20:[address] 2017-06-08 2017-06-12 Outpatient Bijan Mcneill [facility] [id number] 15:31:00 13:20:00 Don 85 2017-05-29 2017-05-30 Outpatient nullFlavo [facility] [id number] Mem[facility] 18:31:00 04:59:00 r [place] 01 l Transplant [facility] 2017-05-29 2017-05-30 Outpatient nullFlavo [facility] [id number] [facility] 18:31:00 04:59:00 r [place] 01 l Transplant Anjelica Ctr 2017-05-29 2017-05-29 Outpatient Bijan Mcneill [facility] [id number] 13:31:00 23:59:00 Don 01 2017-05-21 2017-05-22 Observatio nullFlavo [facility] [id number] Mem[facility] 18:06:00 20:45:00 n r [place] 00 [facility] 2017-05-21 2017-05-22 Observatio nullFlavo [facility] [id number] Mem[facility] 18:06:00 20:45:00 n r [place] 00 [facility] 2017-05-21 2017-05-22 [id number] 13:06:00 15:45:00 Peter 00 Results Test Description Test Time Test Comments Results Result Comments Source CHEM PANEL 2017-06-12 08:11:00 Test Item Value Reference Range Interpretation Comme nts AST (test code = AST) 69 See_Comment [Auto mated message] The system which generated this result transmitted reference range: <=37. Th e reference range was not used to interpret th is result as normal/abnormal. [facility] [id number] 08:11:00 Test Item Value Reference Range Interpretation Comments Alk Phos (test code = Alk Phos) 125 39-136 [facility] [id number] 08:11:00 Test Item Value Reference Range Interpretation Comments Albumin Lvl (test code = Albumin Lvl) 3.3 3.5-5.0 [facility] [id number] 08:11:00 Test Item Value Reference Range Interpretation Comments Total Protein (test code = Total 7.4 6.4-8.4 Protein) [facility] [id number] 08:11:00 Test Item Value Reference Range Interpretation Comments Bili Indirect (test 1.0 See_Comment [Automa yahir message] The code = Bili Indirect) system which generated this result tra nsmitted reference range : <=1.0. The reference r magali was not used to int erpret this result as normal/abnormal . [facility] [id number] 08:11:00 Test Item Value Reference Range Interpretation Comments Globulin (test code = Globulin) 4.1 2.7-4.2 [facility] [id number] 08:11:00 Test Item Value Reference Range Interpretation Comments A/G Ratio (test code = A/G Ratio) 0.8 0.7-1.6 [facility] [id number] 08:11:00 Test Item Value Reference Range Interpretation Comments Phosphorus (test code = Phosphorus) 3.9 2.5-4.5 [facility] [id number] 08:11:00 Test Item Value Reference Range Interpretation Comments Magnesium Lvl (test code = Magnesium 2.2 1.8-2.4 Lvl) [facility]ixeffgSNHVJCFFLHEX9350-09-04 08:11:00 Test Item Value Reference Range Interpretation Comments AGAP (test code = AGAP) 12.9 10.0-20.0 [facility]LmooavkOJSGHVSRBDIG6262-18-65 08:11:00 Test Item Value Reference Range Interpretation Comments eGFR (test code = eGFR) 123 [facility] CenterHwitkauLUVMPKJQXWQF5128-89-94 08:11:00 Test Item Value Reference Range Interpretation Comments Calcium Lvl (test code = Calcium Lvl) 9.0 8.5-10.5 [facility] CenterCpupepbOJRZIJSFOFJA5394-56-26 08:11:00 Test Item Value Reference Range Interpretation Comments CO2 (test code = CO2) 26 24-32 [facility] CenterZkhudffJUZKWUXZZROL8845-09-38 08:11:00 Test Item Value Reference Range Interpretation Comments Potassium Lvl (test code = Potassium 3.9 3.5-5.1 Lvl) [facility] CenterWhdkclfFFOHZPQOZVXL1744-32-44 08:11:00 Test Item Value Reference Range Interpretation Comments Chloride Lvl (test code = Chloride Lvl) 104 95-109 [facility] CenterFqgtygwEPJOEIQYDMEG8134-86-03 08:11:00 Test Item Value Reference Range Interpretation Comments Creatinine Lvl (test code = Creatinine 0.71 0.50-1.40 Lvl) [facility] CenterCtqlxaaNOPQLUUHNRGB5844-06-17 08:11:00 Test Item Value Reference Range Interpretation Comments Sodium Lvl (test code = Sodium Lvl) 139 135-145 [facility] CenterAbcusvkKIVWQHOIRHJK9153-42-77 08:11:00 Test Item Value Reference Range Interpretation Comments BUN (test code = BUN) 8 7-22 [facility] CenterMechzxsPMTMBWJOFOTU6582-88-05 08:11:00 Test Item Value Reference Range Interpretation Comments Glucose Lvl (test code = Glucose Lvl) 85 70-99 [facility]XjklzcjXGJQUFQAEW2331-40-58 08:11:00 Test Item Value Reference Range Interpretation Comments RBC (test code = RBC) 4.58 4.70-6.10 [facility]villeLbltilrTSQPORZBDW1347-07-60 08:11:00 Test Item Value Reference Range Interpretation Comments MCV (test code = MCV) 89.3 80.0-94.0 [facility]villeWhkwpudZCEAUVVHAI9747-95-53 08:11:00 Test Item Value Reference Range Interpretation Comments WBC (test code = WBC) 7.3 3.7-10.4 [facility]villeBpgbealHTGTNVNMYJ0831-12-18 08:11:00 Test Item Value Reference Range Interpretation Comments RDW (test code = RDW) 13.4 11.5-14.5 [facility]villeDyvgxsdGVWZWFRWSD7330-87-78 08:11:00 Test Item Value Reference Range Interpretation Comments Platelet (test code = Platelet) 178 133-450 [facility]villeQezewvgMPROMRMAUK6437-53-99 08:11:00 Test Item Value Reference Range Interpretation Comments MPV (test code = MPV) 8.4 7.4-10.4 [facility]villeHmkrjbkJWJSRXTLDI7574-32-43 08:11:00 Test Item Value Reference Range Interpretation Comments MCH (test code = MCH) 30.8 pg 27.0-31.0 [facility]villeYfsljmzGVHEIPPDKX7680-06-96 08:11:00 Test Item Value Reference Range Interpretation Comments MCHC (test code = MCHC) 34.4 32.0-36.0 [facility]villeOrixnicKZITPXKVNB7620-61-92 08:11:00 Test Item Value Reference Range Interpretation Comments Hgb (test code = Hgb) 14.1 14.0-18.0 [facility]villeXqrfzzdBLCSVVBHLY4456-20-21 08:11:00 Test Item Value Reference Range Interpretation Comments Hct (test code = Hct) 40.9 42.0-54.0 [facility]villeOjwbfpuKINDOCCTUV0313-52-09 08:11:00 Test Item Value Reference Range Interpretation Comments Eosinophils (test code = 2.0 See_Comment [A utomated message] The Eosinophils) system which ge nerated this result tra nsmitted reference range : <=4.0. The reference r magali was not used to int erpret this result as normal/abnormal . [facility]villeJsjnaevOOJKQHRJTD9528-32-39 08:11:00 Test Item Value Reference Range Interpretation Comments Basophils (test code = 0.7 See_Comment [Aut omated message] The Basophils) system which ge nerated this result tra nsmitted reference range : <=1.0. The reference r magali was not used to int erpret this result as normal/abnormal . [facility]2017-10-16 08:11:00 Test Item Value Reference Range Interpretation Comments ALT (test code = ALT) 188 <=65 [facility]2017-10-16 08:11:00 Test Item Value Reference Range Interpretation Comments Bili Total (test code = Bili Total) 1.1 0.2-1.3 [facility]2017-10-16 08:11:00 Test Item Value Reference Range Interpretation Comments Bili Direct (test code = Bili Direct) 0.1 <=0.3 [facility]2017-10-16 08:11:00 Test Item Value Reference Range Interpretation Comments AST (test code = AST) 69 <=37 [facility]2017-10-16 08:11:00 Test Item Value Reference Range Interpretation Comments Alk Phos (test code = Alk Phos) 125 39-136 [facility]2017-10-16 08:11:00 Test Item Value Reference Range Interpretation Comments Albumin Lvl (test code = Albumin Lvl) 3.3 3.5-5.0 [facility]2017-10-16 08:11:00 Test Item Value Reference Range Interpretation Comments Total Protein (test code = Total 7.4 6.4-8.4 Protein) [facility]2017-10-16 08:11:00 Test Item Value Reference Range Interpretation Comments Bili Indirect (test code = Bili 1.0 <=1.0 Indirect) [facility]2017-10-16 08:11:00 Test Item Value Reference Range Interpretation Comments Globulin (test code = Globulin) 4.1 2.7-4.2 [facility]villeGyqbahtNPKFVEKNOD6900-44-07 08:11:00 Test Item Value Reference Range Interpretation Comments Segs-Bands # (test code = Segs-Bands #) 5.1 1.5-8.1 [facility]2017-10-16 08:11:00 Test Item Value Reference Range Interpretation Comments A/G Ratio (test code = A/G Ratio) 0.8 0.7-1.6 [facility]2017-10-16 08:11:00 Test Item Value Reference Range Interpretation Comments Phosphorus (test code = Phosphorus) 3.9 2.5-4.5 [facility]2017-10-16 08:11:00 Test Item Value Reference Range Interpretation Comments Magnesium Lvl (test code = Magnesium 2.2 1.8-2.4 Lvl) [facility]XvfagipBIESEFFKNYKX5154-70-14 08:11:00 Test Item Value Reference Range Interpretation Comments AGAP (test code = AGAP) 12.9 10.0-20.0 [facility] CenterDpnvfdtCZVCYRVOJUFD7296-82-29 08:11:00 Test Item Value Reference Range Interpretation Comments eGFR (test code = eGFR) 123 [facility] CenterWrdllrxGGWQDZJVFOUF3264-42-58 08:11:00 Test Item Value Reference Range Interpretation Comments Calcium Lvl (test code = Calcium Lvl) 9.0 8.5-10.5 [facility] CenterPdwvtwtHWKAWTQMDAAG5140-95-26 08:11:00 Test Item Value Reference Range Interpretation Comments CO2 (test code = CO2) 26 24-32 [facility] CenterOsalyodMDUVJBIBXXYO2078-47-60 08:11:00 Test Item Value Reference Range Interpretation Comments Potassium Lvl (test code = Potassium 3.9 3.5-5.1 Lvl) [facility] CenterXnyhyxyNKDAAYWFVTNY1854-80-76 08:11:00 Test Item Value Reference Range Interpretation Comments Chloride Lvl (test code = Chloride Lvl) 104 95-109 [facility] CenterZcprrctQWNEKYKTZORE4556-99-26 08:11:00 Test Item Value Reference Range Interpretation Comments Creatinine Lvl (test code = Creatinine 0.71 0.50-1.40 Lvl) [facility]villeZngtlmtEPQIQANKAM7105-33-43 08:11:00 Test Item Value Reference Range Interpretation Comments Lymphocytes # (test code = Lymphocytes 1.4 1.0-5.5 #) [facility] CenterZlxkwrdGMXAXXMGHQJV3788-87-02 08:11:00 Test Item Value Reference Range Interpretation Comments Sodium Lvl (test code = Sodium Lvl) 139 135-145 [facility] CenterRukgrjdKTYNHGUXVLHH3226-85-11 08:11:00 Test Item Value Reference Range Interpretation Comments BUN (test code = BUN) 8 7-22 [facility] CenterEbrcorlVXURJMBYPRDO7343-04-25 08:11:00 Test Item Value Reference Range Interpretation Comments Glucose Lvl (test code = Glucose Lvl) 85 70-99 [facility]villeTslrgqrMUXDLPPBCA2242-68-66 08:11:00 Test Item Value Reference Range Interpretation Comments RBC (test code = RBC) 4.58 4.70-6.10 [facility]villeGbhgcuzARIYGFGRTC8440-31-93 08:11:00 Test Item Value Reference Range Interpretation Comments MCV (test code = MCV) 89.3 80.0-94.0 [facility]villeCgrerllDKPXFGMAGE4707-45-05 08:11:00 Test Item Value Reference Range Interpretation Comments WBC (test code = WBC) 7.3 3.7-10.4 [facility]villeOuqcopkQIOUKAFRMH4602-30-56 08:11:00 Test Item Value Reference Range Interpretation Comments RDW (test code = RDW) 13.4 11.5-14.5 [facility] BrownsvilleIuxggxuQMPKDHGLEG7270-69-01 08:11:00 Test Item Value Reference Range Interpretation Comments Platelet (test code = Platelet) 178 133-450 [facility] BrownsvilleGalvydeLNNKXDQZVQ5643-95-11 08:11:00 Test Item Value Reference Range Interpretation Comments MPV (test code = MPV) 8.4 7.4-10.4 [facility] BrownsvilleWvforntZBWGWRWSCW5492-01-15 08:11:00 Test Item Value Reference Range Interpretation Comments MCH (test code = MCH) 30.8 pg 27.0-31.0 [facility]villeWuaxbktXJHDWRAACG6568-24-24 08:11:00 Test Item Value Reference Range Interpretation Comments Monocytes # (test code 0.6 See_Comment [Aut omated message] The = Monocytes #) system which generated this result tra nsmitted reference range : <=0.8. The reference r magali was not used to int erpret this result as normal/abnormal . [facility]villeHgdcqjiPYWFHBXWOP0930-55-75 08:11:00 Test Item Value Reference Range Interpretation Comments MCHC (test code = MCHC) 34.4 32.0-36.0 [facility] BrownsvilleRatsfuzMKOXGCYLVD7681-06-35 08:11:00 Test Item Value Reference Range Interpretation Comments Hgb (test code = Hgb) 14.1 14.0-18.0 [facility]villeJphfvqqHGXCHTIECC2990-01-31 08:11:00 Test Item Value Reference Range Interpretation Comments Hct (test code = Hct) 40.9 42.0-54.0 [facility]villeUmdgvvoWOHVLJUWHJ8867-23-43 08:11:00 Test Item Value Reference Range Interpretation Comments Eosinophils (test code = Eosinophils) 2.0 <=4.0 [facility]villeMnepunaJJRLTWUKDS2064-90-59 08:11:00 Test Item Value Reference Range Interpretation Comments Basophils (test code = Basophils) 0.7 <=1.0 [facility] BrownsvilleBglagqeFIRGDERKBM5304-24-97 08:11:00 Test Item Value Reference Range Interpretation Comments Segs-Bands # (test code = Segs-Bands #) 5.1 1.5-8.1 [facility]villeYecvnfkHFLNKDUWYH8256-95-71 08:11:00 Test Item Value Reference Range Interpretation Comments Lymphocytes # (test code = Lymphocytes 1.4 1.0-5.5 #) [facility]villeQhrglenHTUATYWFKH2119-36-10 08:11:00 Test Item Value Reference Range Interpretation Comments Monocytes # (test code = Monocytes #) 0.6 <=0.8 [facility]villeAybtodtNOHIZTXDNO1508-46-08 08:11:00 Test Item Value Reference Range Interpretation Comments Eosinophils # (test code = Eosinophils 0.1 <=0.5 #) [facility] BrownsvilleWjloybgMZANYIOLTW8234-06-92 08:11:00 Test Item Value Reference Range Interpretation Comments Basophils # (test code = Basophils #) 0.1 <=0.2 [facility]villeKcsyoxhQCVVQGEDLF2215-16-49 08:11:00 Test Item Value Reference Range Interpretation Comments Eosinophils # (test code 0.1 See_Comment [A utomated message] The = Eosinophils #) system whic h generated this result tra nsmitted reference range : <=0.5. The reference r magali was not used to int erpret this result as normal/abnormal . [facility] BrownsvilleZoqtlxtCOGDHOVGNS7264-85-98 08:11:00 Test Item Value Reference Range Interpretation Comments Segs (test code = Segs) 70.2 45.0-75.0 [facility] BrownsvilleCwwbtwnVEBQWUUATO8458-63-05 08:11:00 Test Item Value Reference Range Interpretation Comments Lymphocytes (test code = Lymphocytes) 18.9 20.0-40.0 [facility] BrownsvilleVwfyutcIFUENHAEKW5240-28-08 08:11:00 Test Item Value Reference Range Interpretation Comments Monocytes (test code = Monocytes) 8.2 2.0-12.0 [facility] BrownsvilleYietwrxSORYSBRBGU8014-78-60 08:11:00 Test Item Value Reference Range Interpretation Comments Basophils # (test code 0.1 See_Comment [Aut omated message] The = Basophils #) system which generated this result tra nsmitted reference range : <=0.2. The reference r magali was not used to int erpret this result as normal/abnormal . [facility] BrownsvilleHeuqfhoGGKAQSNFXY8316-20-94 08:11:00 Test Item Value Reference Range Interpretation Comments Segs (test code = Segs) 70.2 45.0-75.0 [facility] [place]05[place]38 08:11:00 Test Item Value Reference Range Interpretation Comments Lymphocytes (test code = Lymphocytes) 18.9 20.0-40.0 [facility] [place]NolbovwMXZWTMHNRE7138-43-55 08:11:00 Test Item Value Reference Range Interpretation Comments Monocytes (test code = Monocytes) 8.2 2.0-12.0 [facility]2017-10-16 08:11:00 Test Item Value Reference Range Interpretation Comments ALT (test code = ALT) 188 See_Comment [Auto mated message] The system which ge nerated this result transmit yahir reference range : <=65. The reference range was not used to interpr et this result as mauricio l/abnormal. [facility]2017-10-16 08:11:00 Test Item Value Reference Range Interpretation Comments Bili Total (test code = Bili Total) 1.1 0.2-1.3 [facility]2017-10-16 08:11:00 Test Item Value Reference Range Interpretation Comments Bili Direct (test code 0.1 See_Comment [Aut omated message] The = Bili Direct) system which generated this result tra nsmitted reference range : <=0.3. The reference r magali was not used to int erpret this result as mauricio l/abnormal. [facility]2017-10-15 10:05:00 Test Item Value Reference Range Interpretation Comments Phosphorus (test code = Phosphorus) 2.1 2.5-4.5 [facility]2017-10-15 10:05:00 Test Item Value Reference Range Interpretation Comments Magnesium Lvl (test code = Magnesium 2.2 1.8-2.4 Lvl) [facility]2017-10-15 10:05:00 Test Item Value Reference Range Interpretation Comments Globulin (test code = Globulin) 3.7 2.7-4.2 [facility]2017-10-15 10:05:00 Test Item Value Reference Range Interpretation Comments A/G Ratio (test code = A/G Ratio) 0.9 0.7-1.6 [facility]2017-10-15 10:05:00 Test Item Value Reference Range Interpretation Comments Bili Indirect (test code = Bili 0.7 <=1.0 Indirect) [facility]2017-10-15 10:05:00 Test Item Value Reference Range Interpretation Comments ALT (test code = ALT) 209 <=65 [facility]2017-10-15 10:05:00 Test Item Value Reference Range Interpretation Comments Albumin Lvl (test code = Albumin Lvl) 3.4 3.5-5.0 [facility]2017-10-15 10:05:00 Test Item Value Reference Range Interpretation Comments Total Protein (test code = Total 7.1 6.4-8.4 Protein) [facility]2017-10-15 10:05:00 Test Item Value Reference Range Interpretation Comments Bili Direct (test code = Bili Direct) 0.1 <=0.3 [facility]2017-10-15 10:05:00 Test Item Value Reference Range Interpretation Comments Bili Total (test code = Bili Total) 0.8 0.2-1.3 [facility]2017-10-15 10:05:00 Test Item Value Reference Range Interpretation Comments Alk Phos (test code = Alk Phos) 138 39-136 [facility]2017-10-15 10:05:00 Test Item Value Reference Range Interpretation Comments AST (test code = AST) 41 <=37 [facility]2017-10-15 10:05:00 Test Item Value Reference Range Interpretation Comments eGFR (test code = eGFR) 121 [facility]2017-10-15 10:05:00 Test Item Value Reference Range Interpretation Comments Chloride Lvl (test code = Chloride Lvl) 105 95-109 [facility]2017-10-15 10:05:00 Test Item Value Reference Range Interpretation Comments Potassium Lvl (test code = Potassium 3.6 3.5-5.1 Lvl) [facility]2017-10-15 10:05:00 Test Item Value Reference Range Interpretation Comments Calcium Lvl (test code = Calcium Lvl) 8.6 8.5-10.5 [facility]2017-10-15 10:05:00 Test Item Value Reference Range Interpretation Comments CO2 (test code = CO2) 23 24-32 [facility]2017-10-15 10:05:00 Test Item Value Reference Range Interpretation Comments AGAP (test code = AGAP) 13.6 10.0-20.0 [facility]2017-10-15 10:05:00 Test Item Value Reference Range Interpretation Comments Creatinine Lvl (test code = Creatinine 0.75 0.50-1.40 Lvl) [facility]2017-10-15 10:05:00 Test Item Value Reference Range Interpretation Comments Glucose Lvl (test code = Glucose Lvl) 80 70-99 [facility]2017-10-15 10:05:00 Test Item Value Reference Range Interpretation Comments BUN (test code = BUN) 5 7-22 [facility]2017-10-15 10:05:00 Test Item Value Reference Range Interpretation Comments Sodium Lvl (test code = Sodium Lvl) 138 135-145 [facility] [place]villeTkmcvosVYDRHNSAMA6699-66-20 10:05:00 Test Item Value Reference Range Interpretation Comments Hgb (test code = Hgb) 14.1 14.0-18.0 [facility] [place]GffvcmvVWJAMBPSPR4801-14-32 10:05:00 Test Item Value Reference Range Interpretation Comments RBC (test code = RBC) 4.55 4.70-6.10 [facility] [place]villeIzyknasRYGJVAPELA1165-29-76 10:05:00 Test Item Value Reference Range Interpretation Comments WBC (test code = WBC) 8.5 3.7-10.4 [facility] [place]LcrmowuLPXTIPWXFJ4151-98-66 10:05:00 Test Item Value Reference Range Interpretation Comments Hct (test code = Hct) 41.0 42.0-54.0 [facility] [place]villeQateasdFAENUAYCNZ1561-73-57 10:05:00 Test Item Value Reference Range Interpretation Comments MCV (test code = MCV) 90.1 80.0-94.0 [facility] [place]JsyyvovOHCNYSXDRB0449-22-18 10:05:00 Test Item Value Reference Range Interpretation Comments MCH (test code = MCH) 30.9 pg 27.0-31.0 [facility] [place]PcirfvwVICFUDVOOY3529-36-47 10:05:00 Test Item Value Reference Range Interpretation Comments MCHC (test code = MCHC) 34.3 32.0-36.0 [facility] [place]UpqgetwNWUTRPZPXO9014-25-37 10:05:00 Test Item Value Reference Range Interpretation Comments MPV (test code = MPV) 8.4 7.4-10.4 [facility] [place]KwpjkyvFIWSBFHURW3694-89-77 10:05:00 Test Item Value Reference Range Interpretation Comments Platelet (test code = Platelet) 164 133-450 [facility] [place]villeUefbjceKUEZCWMKUL6706-66-73 10:05:00 Test Item Value Reference Range Interpretation Comments RDW (test code = RDW) 13.8 11.5-14.5 [facility] [place]NiynbsnOEBOOVTADY9821-70-63 10:05:00 Test Item Value Reference Range Interpretation Comments Eosinophils # (test code = Eosinophils 0.1 <=0.5 #) [facility] [place]villeUnmxykpXNOQMLJFXP6441-77-01 10:05:00 Test Item Value Reference Range Interpretation Comments Segs-Bands # (test code = Segs-Bands #) 6.7 1.5-8.1 [facility] [place]villeGmgugwxZBGSVJHALJ9720-11-79 10:05:00 Test Item Value Reference Range Interpretation Comments Lymphocytes # (test code = Lymphocytes 1.1 1.0-5.5 #) [facility] [place]villeEwoxwevWAGLLGWPNZ8815-51-40 10:05:00 Test Item Value Reference Range Interpretation Comments Monocytes # (test code = Monocytes #) 0.6 <=0.8 [facility] [place]villeCwbdidmXOXEZABWVW2577-73-99 10:05:00 Test Item Value Reference Range Interpretation Comments Monocytes (test code = Monocytes) 7.0 2.0-12.0 [facility] [place]villeHhhkfbrWMAVUZBTCM4027-20-48 10:05:00 Test Item Value Reference Range Interpretation Comments Segs (test code = Segs) 78.6 45.0-75.0 [facility] [place]villeRujwjvrQHZTNKZYIC6453-02-44 10:05:00 Test Item Value Reference Range Interpretation Comments Lymphocytes (test code = Lymphocytes) 13.0 20.0-40.0 [facility] [place]YqxlxegVPFDTLRTVP5984-13-87 10:05:00 Test Item Value Reference Range Interpretation Comments Basophils (test code = Basophils) 0.5 <=1.0 [facility] [place]villeFkenelkTGVLLEQDST8384-08-20 10:05:00 Test Item Value Reference Range Interpretation Comments Eosinophils (test code = Eosinophils) 0.9 <=4.0 [facility]2017-10-15 10:05:00 Test Item Value Reference Range Interpretation Comments Phosphorus (test code = Phosphorus) 2.1 2.5-4.5 [facility] QDMTF2039-67-47 10:05:00 Test Item Value Reference Range Interpretation Comments Magnesium Lvl (test code = Magnesium 2.2 1.8-2.4 Lvl) [facility]2017-10-15 10:05:00 Test Item Value Reference Range Interpretation Comments Globulin (test code = Globulin) 3.7 2.7-4.2 [facility]2017-10-15 10:05:00 Test Item Value Reference Range Interpretation Comments A/G Ratio (test code = A/G Ratio) 0.9 0.7-1.6 [facility]2017-10-15 10:05:00 Test Item Value Reference Range Interpretation Comments Bili Indirect (test 0.7 See_Comment [Automa yahir message] The code = Bili Indirect) system which generated this result tra nsmitted reference range : <=1.0. The reference r magali was not used to int erpret this result as normal/abnormal . [facility]2017-10-15 10:05:00 Test Item Value Reference Range Interpretation Comments ALT (test code = ALT) 209 See_Comment [Auto mated message] The system which ge nerated this result transmit yahir reference range : <=65. The reference range was not used to interpr et this result as mauricio l/abnormal. [facility]2017-10-15 10:05:00 Test Item Value Reference Range Interpretation Comments Albumin Lvl (test code = Albumin Lvl) 3.4 3.5-5.0 [facility]2017-10-15 10:05:00 Test Item Value Reference Range Interpretation Comments Total Protein (test code = Total 7.1 6.4-8.4 Protein) [facility]2017-10-15 10:05:00 Test Item Value Reference Range Interpretation Comments Bili Direct (test code 0.1 See_Comment [Aut omated message] The = Bili Direct) system which generated this result tra nsmitted reference range : <=0.3. The reference r magali was not used to int erpret this result as mauricio l/abnormal. [facility]2017-10-15 10:05:00 Test Item Value Reference Range Interpretation Comments Bili Total (test code = Bili Total) 0.8 0.2-1.3 [place] [address]-10-15 10:05:00 Test Item Value Reference Range Interpretation Comments Alk Phos (test code = Alk Phos) 138 39-136 [facility]2017-10-15 10:05:00 Test Item Value Reference Range Interpretation Comments AST (test code = AST) 41 See_Comment [Auto mated message] The system which ge nerated this result transmit yahir reference range : <=37. The reference range was not used to interpr et this result as mauricio l/abnormal. [facility]2017-10-15 10:05:00 Test Item Value Reference Range Interpretation Comments eGFR (test code = eGFR) 121 [facility]2017-10-15 10:05:00 Test Item Value Reference Range Interpretation Comments Chloride Lvl (test code = Chloride Lvl) 105 95-109 [facility]2017-10-15 10:05:00 Test Item Value Reference Range Interpretation Comments Potassium Lvl (test code = Potassium 3.6 3.5-5.1 Lvl) [facility]2017-10-15 10:05:00 Test Item Value Reference Range Interpretation Comments Calcium Lvl (test code = Calcium Lvl) 8.6 8.5-10.5 [facility]2017-10-15 10:05:00 Test Item Value Reference Range Interpretation Comments CO2 (test code = CO2) 23 24-32 [facility]2017-10-15 10:05:00 Test Item Value Reference Range Interpretation Comments AGAP (test code = AGAP) 13.6 10.0-20.0 [facility]2017-10-15 10:05:00 Test Item Value Reference Range Interpretation Comments Creatinine Lvl (test code = Creatinine 0.75 0.50-1.40 Lvl) [facility]2017-10-15 10:05:00 Test Item Value Reference Range Interpretation Comments Glucose Lvl (test code = Glucose Lvl) 80 70-99 [facility]2017-10-15 10:05:00 Test Item Value Reference Range Interpretation Comments BUN (test code = BUN) 5 7-22 [facility]2017-10-15 10:05:00 Test Item Value Reference Range Interpretation Comments Sodium Lvl (test code = Sodium Lvl) 138 135-145 [facility] [place]JlifzpuAHCBOIICNM1799-10-32 10:05:00 Test Item Value Reference Range Interpretation Comments Hgb (test code = Hgb) 14.1 14.0-18.0 [facility] [place]YtflmuzGJUFMMQMOK0609-41-18 10:05:00 Test Item Value Reference Range Interpretation Comments RBC (test code = RBC) 4.55 4.70-6.10 [facility] [place]HqobngvDSZHNIGJOB5264-01-94 10:05:00 Test Item Value Reference Range Interpretation Comments WBC (test code = WBC) 8.5 3.7-10.4 [facility] [place]PybvotoICTPHEDSMC1478-47-59 10:05:00 Test Item Value Reference Range Interpretation Comments Hct (test code = Hct) 41.0 42.0-54.0 [facility] [place]villeCmxykusNYQTJRZGMD2447-55-88 10:05:00 Test Item Value Reference Range Interpretation Comments MCV (test code = MCV) 90.1 80.0-94.0 [facility] [place]villeNhstywcYBJLHQNPNO8869-08-19 10:05:00 Test Item Value Reference Range Interpretation Comments MCH (test code = MCH) 30.9 pg 27.0-31.0 [facility] [place]villeUdnsgpwWJPYTAPJPZ3115-67-01 10:05:00 Test Item Value Reference Range Interpretation Comments MCHC (test code = MCHC) 34.3 32.0-36.0 [facility] [place]ByqaebnLZQEQNOMBW2519-16-78 10:05:00 Test Item Value Reference Range Interpretation Comments MPV (test code = MPV) 8.4 7.4-10.4 [facility] [place]villeRqvgrreVKVJYYXCXJ4750-48-62 10:05:00 Test Item Value Reference Range Interpretation Comments Platelet (test code = Platelet) 164 133-450 [facility] [place]villeVroqlruVQNZZIIUYX5937-89-79 10:05:00 Test Item Value Reference Range Interpretation Comments RDW (test code = RDW) 13.8 11.5-14.5 [facility] [place]villeSbbmmlcFQSSJNLQYK6044-51-26 10:05:00 Test Item Value Reference Range Interpretation Comments Eosinophils # (test code 0.1 See_Comment [A utomated message] The = Eosinophils #) system whic h generated this result tra nsmitted reference range : <=0.5. The reference r magali was not used to int erpret this result as normal/abnormal . [facility] [place]GjrcnpuIHULSZTXEL9943-31-48 10:05:00 Test Item Value Reference Range Interpretation Comments Segs-Bands # (test code = Segs-Bands #) 6.7 1.5-8.1 [facility] [place]villeKyardgjZTQOPMGXSJ5948-24-38 10:05:00 Test Item Value Reference Range Interpretation Comments Lymphocytes # (test code = Lymphocytes 1.1 1.0-5.5 #) [facility] [place]villeMhuxkwfSMIWJTHDHF9100-12-70 10:05:00 Test Item Value Reference Range Interpretation Comments Monocytes # (test code 0.6 See_Comment [Aut omated message] The = Monocytes #) system which generated this result tra nsmitted reference range : <=0.8. The reference r magali was not used to int erpret this result as normal/abnormal . [facility] [place]villeBzjwqgfNINTAPZCVC7576-02-65 10:05:00 Test Item Value Reference Range Interpretation Comments Monocytes (test code = Monocytes) 7.0 2.0-12.0 [facility] [place]NjtztxgSEWXNUOKYD5767-27-81 10:05:00 Test Item Value Reference Range Interpretation Comments Segs (test code = Segs) 78.6 45.0-75.0 [facility] [place]MpkobbkZUDTSMFFUY1431-21-76 10:05:00 Test Item Value Reference Range Interpretation Comments Lymphocytes (test code = Lymphocytes) 13.0 20.0-40.0 [facility] [place]HasuequAUBVHFLACU1241-83-37 10:05:00 Test Item Value Reference Range Interpretation Comments Basophils (test code = 0.5 See_Comment [Aut omated message] The Basophils) system which ge nerated this result tra nsmitted reference range : <=1.0. The reference r magali was not used to int erpret this result as normal/abnormal . [facility] [place]villeCgqbrveMHHULOECUI4829-18-70 10:05:00 Test Item Value Reference Range Interpretation Comments Eosinophils (test code = 0.9 See_Comment [A utomated message] The Eosinophils) system which ge nerated this result tra nsmitted reference range : <=4.0. The reference r magali was not used to int erpret this result as normal/abnormal . [facility]2017-10-14 11:17:00 Test Item Value Reference Range Interpretation Comments Total Protein (test code = Total 6.8 6.4-8.4 Protein) [facility]2017-10-14 11:17:00 Test Item Value Reference Range Interpretation Comments Albumin Lvl (test code = Albumin Lvl) 3.3 3.5-5.0 [facility]2017-10-14 11:17:00 Test Item Value Reference Range Interpretation Comments eGFR (test code = eGFR) 113 [facility]2017-10-14 11:17:00 Test Item Value Reference Range Interpretation Comments Potassium Lvl (test code = Potassium 3.6 3.5-5.1 Lvl) [facility]2017-10-14 11:17:00 Test Item Value Reference Range Interpretation Comments Sodium Lvl (test code = Sodium Lvl) 141 135-145 [facility]2017-10-14 11:17:00 Test Item Value Reference Range Interpretation Comments Creatinine Lvl (test code = Creatinine 0.88 0.50-1.40 Lvl) [facility]2017-10-14 11:17:00 Test Item Value Reference Range Interpretation Comments BUN (test code = BUN) 11 7-22 [facility]2017-10-14 11:17:00 Test Item Value Reference Range Interpretation Comments Glucose Lvl (test code = Glucose Lvl) 157 70-99 [facility]2017-10-14 11:17:00 Test Item Value Reference Range Interpretation Comments Calcium Lvl (test code = Calcium Lvl) 8.2 8.5-10.5 [facility]2017-10-14 11:17:00 Test Item Value Reference Range Interpretation Comments Chloride Lvl (test code = Chloride Lvl) 106 95-109 [facility]2017-10-14 11:17:00 Test Item Value Reference Range Interpretation Comments CO2 (test code = CO2) 25 24-32 [facility]2017-10-14 11:17:00 Test Item Value Reference Range Interpretation Comments AGAP (test code = AGAP) 13.6 10.0-20.0 [facility]2017-10-14 11:17:00 Test Item Value Reference Range Interpretation Comments Magnesium Lvl (test code = Magnesium 2.2 1.8-2.4 Lvl) [facility]2017-10-14 11:17:00 Test Item Value Reference Range Interpretation Comments Phosphorus (test code = Phosphorus) 2.3 2.5-4.5 [facility] [place]HnokgqsNWPEUIYYES0132-32-86 11:17:00 Test Item Value Reference Range Interpretation Comments Platelet (test code = Platelet) 179 133-450 [facility] [place]villePabimnwDHQMISDTWE8006-97-90 11:17:00 Test Item Value Reference Range Interpretation Comments RDW (test code = RDW) 13.3 11.5-14.5 [facility] [place]villeTfillueHSXRCNBPHS2987-01-30 11:17:00 Test Item Value Reference Range Interpretation Comments MPV (test code = MPV) 8.2 7.4-10.4 [facility] [place]villeMnnlnwtFSKNXSBORQ6646-85-36 11:17:00 Test Item Value Reference Range Interpretation Comments Hct (test code = Hct) 39.3 42.0-54.0 [facility] [place]villeQsfojsoVWIINMHCPG8099-58-70 11:17:00 Test Item Value Reference Range Interpretation Comments MCH (test code = MCH) 31.3 pg 27.0-31.0 [facility] [place]villeVoeuwvtLYOFODIXKD6762-44-69 11:17:00 Test Item Value Reference Range Interpretation Comments MCV (test code = MCV) 89.2 80.0-94.0 [facility] [place]villeNnlpqnoQTEQZNYMUD5962-31-52 11:17:00 Test Item Value Reference Range Interpretation Comments MCHC (test code = MCHC) 35.1 32.0-36.0 [facility] [place]villeTrazalrWKHNJIUROM8853-66-41 11:17:00 Test Item Value Reference Range Interpretation Comments WBC (test code = WBC) 10.3 3.7-10.4 [facility] [place]villeHyzzsvnJJETTZPQGK8256-65-65 11:17:00 Test Item Value Reference Range Interpretation Comments RBC (test code = RBC) 4.41 4.70-6.10 [facility] [place]YyykxngYVKPWFQWTB6188-40-70 11:17:00 Test Item Value Reference Range Interpretation Comments Hgb (test code = Hgb) 13.8 14.0-18.0 [facility] [place]villeRbtwlxjPTUVCGEMIS7287-05-06 11:17:00 Test Item Value Reference Range Interpretation Comments Eosinophils (test code = 0.1 See_Comment [A utomated message] The Eosinophils) system which ge nerated this result tra nsmitted reference range : <=4.0. The reference r magali was not used to int erpret this result as normal/abnormal . [facility] [place]villeZqahopqDZWWNLQNGL6963-96-35 11:17:00 Test Item Value Reference Range Interpretation Comments Lymphocytes # (test code = Lymphocytes 1.1 1.0-5.5 #) [facility] [place]villeEvyczerSETKYOGQTI0000-06-58 11:17:00 Test Item Value Reference Range Interpretation Comments Segs-Bands # (test code = Segs-Bands #) 8.5 1.5-8.1 [facility] [place]villeJicqhvdYIZXYAHWSU3963-37-84 11:17:00 Test Item Value Reference Range Interpretation Comments Monocytes # (test code 0.6 See_Comment [Aut omated message] The = Monocytes #) system which generated this result tra nsmitted reference range : <=0.8. The reference r magali was not used to int erpret this result as normal/abnormal . [facility] [place]villeAbldycuLXQVZUUDIV8400-98-74 11:17:00 Test Item Value Reference Range Interpretation Comments Segs (test code = Segs) 83.1 45.0-75.0 [facility] [place]villeRpoohvnHLQRCMKJNY0503-47-78 11:17:00 Test Item Value Reference Range Interpretation Comments Lymphocytes (test code = Lymphocytes) 10.8 20.0-40.0 [facility] [place]villeCbxaymgJIFTQNCLMV0658-98-04 11:17:00 Test Item Value Reference Range Interpretation Comments Monocytes (test code = Monocytes) 5.6 2.0-12.0 [facility] [place]QruzkunQNGKYQVVZN5732-02-61 11:17:00 Test Item Value Reference Range Interpretation Comments Basophils (test code = 0.4 See_Comment [Aut omated message] The Basophils) system which ge nerated this result tra nsmitted reference range : <=1.0. The reference r magali was not used to int erpret this result as normal/abnormal . [facility]2017-10-14 11:17:00 Test Item Value Reference Range Interpretation Comments Amylase Lvl (test code = Amylase Lvl) 94 25-115 [facility]2017-10-14 11:17:00 Test Item Value Reference Range Interpretation Comments Lipase Lvl (test code = Lipase Lvl) 337 73-393 [facility]2017-10-14 11:17:00 Test Item Value Reference Range Interpretation Comments AST (test code = AST) 56 <=37 [facility]2017-10-14 11:17:00 Test Item Value Reference Range Interpretation Comments Alk Phos (test code = Alk Phos) 152 39-136 [facility]2017-10-14 11:17:00 Test Item Value Reference Range Interpretation Comments ALT (test code = ALT) 291 <=65 [facility]2017-10-14 11:17:00 Test Item Value Reference Range Interpretation Comments Bili Total (test code = Bili Total) 0.8 0.2-1.3 [facility]2017-10-14 11:17:00 Test Item Value Reference Range Interpretation Comments Bili Direct (test code = Bili Direct) 0.2 <=0.3 [facility]2017-10-14 11:17:00 Test Item Value Reference Range Interpretation Comments Bili Indirect (test code = Bili 0.6 <=1.0 Indirect) [facility]2017-10-14 11:17:00 Test Item Value Reference Range Interpretation Comments Globulin (test code = Globulin) 3.5 2.7-4.2 [facility]2017-10-14 11:17:00 Test Item Value Reference Range Interpretation Comments A/G Ratio (test code = A/G Ratio) 0.9 0.7-1.6 [facility]2017-10-14 11:17:00 Test Item Value Reference Range Interpretation Comments Total Protein (test code = Total 6.8 6.4-8.4 Protein) [facility]2017-10-14 11:17:00 Test Item Value Reference Range Interpretation Comments Albumin Lvl (test code = Albumin Lvl) 3.3 3.5-5.0 [facility]2017-10-14 11:17:00 Test Item Value Reference Range Interpretation Comments eGFR (test code = eGFR) 113 [facility]2017-10-14 11:17:00 Test Item Value Reference Range Interpretation Comments Potassium Lvl (test code = Potassium 3.6 3.5-5.1 Lvl) [facility]2017-10-14 11:17:00 Test Item Value Reference Range Interpretation Comments Sodium Lvl (test code = Sodium Lvl) 141 135-145 [facility]2017-10-14 11:17:00 Test Item Value Reference Range Interpretation Comments Creatinine Lvl (test code = Creatinine 0.88 0.50-1.40 Lvl) [facility] [facility] 11:17:00 Test Item Value Reference Range Interpretation Comments BUN (test code = BUN) 11 7-22 [facility]2017-10-14 11:17:00 Test Item Value Reference Range Interpretation Comments Glucose Lvl (test code = Glucose Lvl) 157 70-99 [facility]2017-10-14 11:17:00 Test Item Value Reference Range Interpretation Comments Calcium Lvl (test code = Calcium Lvl) 8.2 8.5-10.5 [facility]2017-10-14 11:17:00 Test Item Value Reference Range Interpretation Comments Chloride Lvl (test code = Chloride Lvl) 106 95-109 [facility]2017-10-14 11:17:00 Test Item Value Reference Range Interpretation Comments CO2 (test code = CO2) 25 24-32 [facility]2017-10-14 11:17:00 Test Item Value Reference Range Interpretation Comments AGAP (test code = AGAP) 13.6 10.0-20.0 [facility]2017-10-14 11:17:00 Test Item Value Reference Range Interpretation Comments Magnesium Lvl (test code = Magnesium 2.2 1.8-2.4 Lvl) [facility]2017-10-14 11:17:00 Test Item Value Reference Range Interpretation Comments Phosphorus (test code = Phosphorus) 2.3 2.5-4.5 [facility]UyuydhsWTYQTAOPPE1285-91-42 11:17:00 Test Item Value Reference Range Interpretation Comments Platelet (test code = Platelet) 179 133-450 [facility]villeXgeaqqyCBVDLSZUBE9684-48-36 11:17:00 Test Item Value Reference Range Interpretation Comments RDW (test code = RDW) 13.3 11.5-14.5 [facility]villeSvphbvjVXSXCDUBSA7054-86-22 11:17:00 Test Item Value Reference Range Interpretation Comments MPV (test code = MPV) 8.2 7.4-10.4 [facility]villeUabcuonARKVGIEXEV7745-24-33 11:17:00 Test Item Value Reference Range Interpretation Comments Hct (test code = Hct) 39.3 42.0-54.0 [facility]villeTvxglsfMBJDCMFFXF7286-80-30 11:17:00 Test Item Value Reference Range Interpretation Comments MCH (test code = MCH) 31.3 pg 27.0-31.0 [facility]villeSesvqfvSBRTJDWAZA7394-94-55 11:17:00 Test Item Value Reference Range Interpretation Comments MCV (test code = MCV) 89.2 80.0-94.0 [facility]villeWncdfqcMBYABIKLGW1977-22-60 11:17:00 Test Item Value Reference Range Interpretation Comments MCHC (test code = MCHC) 35.1 32.0-36.0 [facility]villeHlekzudVGSTJBWNXB2926-46-88 11:17:00 Test Item Value Reference Range Interpretation Comments WBC (test code = WBC) 10.3 3.7-10.4 [facility]villeWydudmvBXFEIUMGBD1362-36-79 11:17:00 Test Item Value Reference Range Interpretation Comments RBC (test code = RBC) 4.41 4.70-6.10 [facility]villeHozcyfaZRPCMAYNVC7775-06-33 11:17:00 Test Item Value Reference Range Interpretation Comments Hgb (test code = Hgb) 13.8 14.0-18.0 [facility]villeVuhxgciDQJQVBIJZO7441-50-13 11:17:00 Test Item Value Reference Range Interpretation Comments Eosinophils (test code = Eosinophils) 0.1 <=4.0 [facility]villeKdbqzdnSKMTJWIKLR2226-68-03 11:17:00 Test Item Value Reference Range Interpretation Comments Lymphocytes # (test code = Lymphocytes 1.1 1.0-5.5 #) [facility]villeBimqkuxEBQZYENVSM3419-67-81 11:17:00 Test Item Value Reference Range Interpretation Comments Segs-Bands # (test code = Segs-Bands #) 8.5 1.5-8.1 [facility]villeGlawxreVYYISKZEBA0989-09-02 11:17:00 Test Item Value Reference Range Interpretation Comments Monocytes # (test code = Monocytes #) 0.6 <=0.8 [facility]villeFabntitLYGBPQCWGY9067-09-32 11:17:00 Test Item Value Reference Range Interpretation Comments Segs (test code = Segs) 83.1 45.0-75.0 [facility]villeFowjcnoFUQUMAQMVA7174-87-70 11:17:00 Test Item Value Reference Range Interpretation Comments Lymphocytes (test code = Lymphocytes) 10.8 20.0-40.0 [facility]villeQymixmaWSNPEPGKGU9708-16-04 11:17:00 Test Item Value Reference Range Interpretation Comments Monocytes (test code = Monocytes) 5.6 2.0-12.0 [facility]villeOzhkjueQDIETOISQS9544-54-15 11:17:00 Test Item Value Reference Range Interpretation Comments Basophils (test code = Basophils) 0.4 <=1.0 [facility]2017-10-14 11:17:00 Test Item Value Reference Range Interpretation Comments Amylase Lvl (test code = Amylase Lvl) 94 25-115 [facility]2017-10-14 11:17:00 Test Item Value Reference Range Interpretation Comments Lipase Lvl (test code = Lipase Lvl) 337 73-393 [facility]2017-10-14 11:17:00 Test Item Value Reference Range Interpretation Comments AST (test code = AST) 56 See_Comment [Auto mated message] The system which ge nerated this result transmit yahir reference range : <=37. The reference range was not used to interpr et this result as mauricio l/abnormal. [facility]2017-10-14 11:17:00 Test Item Value Reference Range Interpretation Comments Alk Phos (test code = Alk Phos) 152 39-136 [facility]2017-10-14 11:17:00 Test Item Value Reference Range Interpretation Comments ALT (test code = ALT) 291 See_Comment [Auto mated message] The system which ge nerated this result transmit yahir reference range : <=65. The reference range was not used to interpr et this result as mauricio l/abnormal. [facility]2017-10-14 11:17:00 Test Item Value Reference Range Interpretation Comments Bili Total (test code = Bili Total) 0.8 0.2-1.3 [facility]2017-10-14 11:17:00 Test Item Value Reference Range Interpretation Comments Bili Direct (test code 0.2 See_Comment [Aut omated message] The = Bili Direct) system which generated this result tra nsmitted reference range : <=0.3. The reference r magali was not used to int erpret this result as mauricio l/abnormal. [facility]2017-10-14 11:17:00 Test Item Value Reference Range Interpretation Comments Bili Indirect (test 0.6 See_Comment [Automa yahir message] The code = Bili Indirect) system which generated this result tra nsmitted reference range : <=1.0. The reference r magali was not used to int erpret this result as normal/abnormal . [facility] [id number] 11:17:00 Test Item Value Reference Range Interpretation Comments Globulin (test code = Globulin) 3.5 2.7-4.2 [facility] [id number] 11:17:00 Test Item Value Reference Range Interpretation Comments A/G Ratio (test code = A/G Ratio) 0.9 0.7-1.6 [facility] [id number] 09:18:00 Test Item Value Reference Range Interpretation Comments Lipase Lvl (test code = Lipase Lvl) 3772 73-393 [facility] [id number] 09:18:00 Test Item Value Reference Range Interpretation Comments Amylase Lvl (test code = Amylase Lvl) 435 25-115 [facility] [id number] 09:18:00 Test Item Value Reference Range Interpretation Comments Lipase Lvl (test code = Lipase Lvl) 3772 73-393 [facility] [id number] 09:18:00 Test Item Value Reference Range Interpretation Comments Amylase Lvl (test code = Amylase Lvl) 435 25-115 [facility] [id number] 23:25:00 Test Item Value Reference Range Interpretation Comments Antibody Scrn (test Negative (06/08/17 code = Antibody Scrn) 6:25 PM) [facility] Cle[facility]neEdus[facility] BANNER [id number] 23:25:00 Test Item Value Reference Range Interpretation Comments ABO/Rh (test code = ABO/Rh) A POS [facility] [id number] 23:25:00 Test Item Value Reference Range Interpretation Comments Lactic Acid Lvl (test code = Lactic 0.5 0.5-2.2 Acid Lvl) [facility]ChewsspXAJMIXAYZK8686-06-96 23:25:00 Test Item Value Reference Range Interpretation Comments PT (test code = PT) 12.9 s 12.0-14.7 [facility] HoustonLamtccjHUJOOXIKFR6533-75-41 23:25:00 Test Item Value Reference Range Interpretation Comments INR (test code = INR) 0.95 0.85-1.17 [facility] HoustonIgekqsoXMNZVNDNSY0993-42-83 23:25:00 Test Item Value Reference Range Interpretation Comments PTT (test code = PTT) 25.3 s 22.9-35.8 [facility] CleburneQwxkdsmCDCIZS8178-17-62 23:25:00 Test Item Value Reference Range Interpretation Comments Trig (test code = Trig) 97 [facility] [employer] [id number] 23:25:00 Test Item Value Reference Range Interpretation Comments Antibody Scrn (test Negative (06/08/17 code = Antibody Scrn) 6:25 PM) [facility] [employer] [id number] 23:25:00 Test Item Value Reference Range Interpretation Comments ABO/Rh (test code = ABO/Rh) A POS [facility] [employer] [id number] 23:25:00 Test Item Value Reference Range Interpretation Comments Lactic Acid Lvl (test code = Lactic 0.5 0.5-2.2 Acid Lvl) [facility] CleburneCmhdydjHCHKILZSFE3297-10-52 23:25:00 Test Item Value Reference Range Interpretation Comments PT (test code = PT) 12.9 s 12.0-14.7 [facility] CleburnePwvqixkFLMANXJCXH9521-10-30 23:25:00 Test Item Value Reference Range Interpretation Comments INR (test code = INR) 0.95 0.85-1.17 [facility] CleburneDcowvprYMECXSNULM4514-13-40 23:25:00 Test Item Value Reference Range Interpretation Comments PTT (test code = PTT) 25.3 s 22.9-35.8 [facility] CleburneXxixzzcTWTARS3465-70-40 23:25:00 Test Item Value Reference Range Interpretation Comments Trig (test code = Trig) 97 [facility] [employer] [id number] 21:27:00 Test Item Value Reference Range Interpretation Comments Lipase Lvl (test code = Lipase Lvl) 29152 86-393 [facility] [id number] 21:27:00 Test Item Value Reference Range Interpretation Comments Amylase Lvl (test code = Amylase Lvl) 6073 25115 [facility] CleburneWhqahkkYXFXWRARZQ6133-60-98 21:27:00 Test Item Value Reference Range Interpretation Comments Basophils # (test code 0.1 See_Comment [Aut omated message] The = Basophils #) system which generated this result tra nsmitted reference range : <=0.2. The reference r magali was not used to int erpret this result as normal/abnormal . [facility] CleburneDonlzcgIRXJQLIRQO1172-18-28 21:27:00 Test Item Value Reference Range Interpretation Comments Eosinophils # (test code 0.2 See_Comment [A utomated message] The = Eosinophils #) system whic h generated this result tra nsmitted reference range : <=0.5. The reference r magali was not used to int erpret this result as normal/abnormal . [facility]2017-10-12 21:27:00 Test Item Value Reference Range Interpretation Comments Lipase Lvl (test code = Lipase Lvl) 91515 73393 [facility]2017-10-12 21:27:00 Test Item Value Reference Range Interpretation Comments Amylase Lvl (test code = Amylase Lvl) 2135 25-115 [facility]villeJnhzlpkGLRDXJEBMV7782-91-58 21:27:00 Test Item Value Reference Range Interpretation Comments Basophils # (test code = Basophils #) 0.1 <=0.2 [facility]villeVcsoxobZRNJJCBRNX1109-83-15 21:27:00 Test Item Value Reference Range Interpretation Comments Eosinophils # (test code = Eosinophils 0.2 <=0.5 #) [facility]2017-09-25 10:25:00 Test Item Value Reference Range Interpretation Comments eGFR (test code = eGFR) 120 [facility]2017-09-25 10:25:00 Test Item Value Reference Range Interpretation Comments Bili Total (test code = Bili Total) 1.2 0.2-1.3 [facility]2017-09-25 10:25:00 Test Item Value Reference Range Interpretation Comments BUN (test code = BUN) 10 7-22 [facility]2017-09-25 10:25:00 Test Item Value Reference Range Interpretation Comments Glucose Lvl (test code = Glucose Lvl) 97 70-99 [facility]2017-09-25 10:25:00 Test Item Value Reference Range Interpretation Comments Alk Phos (test code = Alk Phos) 91 39-136 [facility]2017-09-25 10:25:00 Test Item Value Reference Range Interpretation Comments ASPARTATE TRANSAMINASE 50 See_Comment [Aut omated message] (test code = ASPARTATE The s ystem which TRANSAMINASE) generated this result transmitted ref erence range: <=37. Th e reference range was not used to interpr et this result as normal/abnormal . [facility]2017-09-25 10:25:00 Test Item Value Reference Range Interpretation Comments ALANINE AMINOTRANSFERASE 82 See_Comment [A utomated message] (test code = ALANINE The sys tem which AMINOTRANSFERASE) generated this result transmitted ref erence range: <=65. Th e reference range was not used to int erpret this result as normal/abnormal . [facility]2017-09-25 10:25:00 Test Item Value Reference Range Interpretation Comments A/G Ratio (test code = A/G Ratio) 0.9 0.7-1.6 [facility]2017-09-25 10:25:00 Test Item Value Reference Range Interpretation Comments Globulin (test code = Globulin) 3.9 2.7-4.2 [facility]2017-09-25 10:25:00 Test Item Value Reference Range Interpretation Comments AGAP (test code = AGAP) 13.5 10.0-20.0 [facility]2017-09-25 10:25:00 Test Item Value Reference Range Interpretation Comments Total Protein (test code = Total 7.4 6.4-8.4 Protein) [facility]2017-09-25 10:25:00 Test Item Value Reference Range Interpretation Comments B/C Ratio (test code = B/C Ratio) 13 6-25 [facility]2017-09-25 10:25:00 Test Item Value Reference Range Interpretation Comments Calcium Lvl (test code = Calcium Lvl) 8.7 8.5-10.5 [facility]2017-09-25 10:25:00 Test Item Value Reference Range Interpretation Comments Sodium Lvl (test code = Sodium Lvl) 139 135-145 [facility]2017-09-25 10:25:00 Test Item Value Reference Range Interpretation Comments Creatinine Lvl (test code = Creatinine 0.76 0.50-1.40 Lvl) [facility]2017-09-25 10:25:00 Test Item Value Reference Range Interpretation Comments CO2 (test code = CO2) 24 24-32 [facility]2017-09-25 10:25:00 Test Item Value Reference Range Interpretation Comments Chloride Lvl (test code = Chloride Lvl) 105 95-109 [facility]2017-09-25 10:25:00 Test Item Value Reference Range Interpretation Comments Potassium Lvl (test code = Potassium 3.5 3.5-5.1 Lvl) [facility]2017-09-25 10:25:00 Test Item Value Reference Range Interpretation Comments Albumin Lvl (test code = Albumin Lvl) 3.5 3.5-5.0 [facility]villeHoxazqfBQMCGHAMEP4478-39-66 10:25:00 Test Item Value Reference Range Interpretation Comments Segs-Bands # (test code = Segs-Bands #) 5.1 1.5-8.1 [facility]villeAfuuzbxMPWGJRXQWU4443-97-34 10:25:00 Test Item Value Reference Range Interpretation Comments Eosinophils (test code = 2.1 See_Comment [A utomated message] The Eosinophils) system which ge nerated this result tra nsmitted reference range : <=4.0. The reference r magali was not used to int erpret this result as normal/abnormal . [facility]villeBkxszjuIGBTPXRASN3374-09-30 10:25:00 Test Item Value Reference Range Interpretation Comments Basophils (test code = 0.6 See_Comment [Aut omated message] The Basophils) system which ge nerated this result tra nsmitted reference range : <=1.0. The reference r magali was not used to int erpret this result as normal/abnormal . [facility]villeGgsuzjrQABSSWBXQB9285-26-75 10:25:00 Test Item Value Reference Range Interpretation Comments Lymphocytes # (test code = Lymphocytes 1.0 1.0-5.5 #) [facility]villeZgmjtqaWKUDRESEZT3136-84-77 10:25:00 Test Item Value Reference Range Interpretation Comments Monocytes # (test code 0.4 See_Comment [Aut omated message] The = Monocytes #) system which generated this result tra nsmitted reference range : <=0.8. The reference r magali was not used to int erpret this result as normal/abnormal . [facility]villeMjahxkrOPLOFFOOHR3485-53-84 10:25:00 Test Item Value Reference Range Interpretation Comments Monocytes (test code = Monocytes) 6.3 2.0-12.0 [facility]villeVqttvkpSSBODCCMJW0444-52-13 10:25:00 Test Item Value Reference Range Interpretation Comments Segs (test code = Segs) 76.4 45.0-75.0 [facility] BrownsvilleRpsucfdPUYRAPJPBD1747-90-54 10:25:00 Test Item Value Reference Range Interpretation Comments Lymphocytes (test code = Lymphocytes) 14.6 20.0-40.0 [facility]villeYjyghikPVMTDVXZOQ5823-22-85 10:25:00 Test Item Value Reference Range Interpretation Comments Eosinophils # (test code 0.1 See_Comment [A utomated message] The = Eosinophils #) system [employer] h generated this result tra nsmitted reference range : <=0.5. The reference r magali was not used to int erpret this result as normal/abnormal . [facility]villeQvrguegVLLADEGISI0271-87-51 10:25:00 Test Item Value Reference Range Interpretation Comments WBC X 10x3 (test code = WBC X 10x3) 6.7 3.7-10.4 [facility]villeJznloqeMNOLJLFTXE9613-01-32 10:25:00 Test Item Value Reference Range Interpretation Comments RBC X 10x6 (test code = RBC X 10x6) 4.88 4.70-6.10 [facility]villeAtdxhtmHXEPKXOOZD4270-54-35 10:25:00 Test Item Value Reference Range Interpretation Comments Hgb (test code = Hgb) 15.2 14.0-18.0 [facility]villeVuhffurXQBMZSFVBP1109-93-64 10:25:00 Test Item Value Reference Range Interpretation Comments MCV (test code = MCV) 87.2 80.0-94.0 [facility]villeXtiezeaPHMXLGZRCN4238-35-96 10:25:00 Test Item Value Reference Range Interpretation Comments MCH (test code = MCH) 31.1 pg 27.0-31.0 [facility]villeSaozxilEKVJSXDFDH2886-90-19 10:25:00 Test Item Value Reference Range Interpretation Comments Hct (test code = Hct) 42.6 42.0-54.0 [facility]villeIeduinvTMDGGPZQJI0883-54-27 10:25:00 Test Item Value Reference Range Interpretation Comments MCHC (test code = MCHC) 35.7 32.0-36.0 [facility]villeWsixzdvXOFLSBZEHN8592-56-63 10:25:00 Test Item Value Reference Range Interpretation Comments RDW (test code = RDW) 13.3 11.5-14.5 [facility]villeLcddetzZRFMYVXVYK6671-07-37 10:25:00 Test Item Value Reference Range Interpretation Comments Platelet (test code = Platelet) 231 133-450 [facility]villeGojaedwJIKLHORLFX9979-78-65 10:25:00 Test Item Value Reference Range Interpretation Comments MPV (test code = MPV) 8.3 7.4-10.4 [facility]2017-09-25 10:25:00 Test Item Value Reference Range Interpretation Comments eGFR (test code = eGFR) 120 [facility]2017-09-25 10:25:00 Test Item Value Reference Range Interpretation Comments Bili Total (test code = Bili Total) 1.2 0.2-1.3 [facility]2017-09-25 10:25:00 Test Item Value Reference Range Interpretation Comments BUN (test code = BUN) 10 7-22 [facility]2017-09-25 10:25:00 Test Item Value Reference Range Interpretation Comments Glucose Lvl (test code = Glucose Lvl) 97 70-99 [facility]2017-09-25 10:25:00 Test Item Value Reference Range Interpretation Comments Alk Phos (test code = Alk Phos) 91 39-136 [facility]2017-09-25 10:25:00 Test Item Value Reference Range Interpretation Comments ASPARTATE TRANSAMINASE (test code = 50 <=37 ASPARTATE TRANSAMINASE) [facility]2017-09-25 10:25:00 Test Item Value Reference Range Interpretation Comments ALANINE AMINOTRANSFERASE (test code = 82 <=65 ALANINE AMINOTRANSFERASE) [facility]2017-09-25 10:25:00 Test Item Value Reference Range Interpretation Comments A/G Ratio (test code = A/G Ratio) 0.9 0.7-1.6 [facility]2017-09-25 10:25:00 Test Item Value Reference Range Interpretation Comments Globulin (test code = Globulin) 3.9 2.7-4.2 [facility]2017-09-25 10:25:00 Test Item Value Reference Range Interpretation Comments AGAP (test code = AGAP) 13.5 10.0-20.0 [facility]2017-09-25 10:25:00 Test Item Value Reference Range Interpretation Comments Total Protein (test code = Total 7.4 6.4-8.4 Protein) [facility]2017-09-25 10:25:00 Test Item Value Reference Range Interpretation Comments B/C Ratio (test code = B/C Ratio) 13 6-25 [facility]2017-09-25 10:25:00 Test Item Value Reference Range Interpretation Comments Calcium Lvl (test code = Calcium Lvl) 8.7 8.5-10.5 [facility]2017-09-25 10:25:00 Test Item Value Reference Range Interpretation Comments Sodium Lvl (test code = Sodium Lvl) 139 135-145 [facility]2017-09-25 10:25:00 Test Item Value Reference Range Interpretation Comments Creatinine Lvl (test code = Creatinine 0.76 0.50-1.40 Lvl) [facility]2017-09-25 10:25:00 Test Item Value Reference Range Interpretation Comments CO2 (test code = CO2) 24 24-32 [facility]2017-09-25 10:25:00 Test Item Value Reference Range Interpretation Comments Chloride Lvl (test code = Chloride Lvl) 105 95-109 [facility]2017-09-25 10:25:00 Test Item Value Reference Range Interpretation Comments Potassium Lvl (test code = Potassium 3.5 3.5-5.1 Lvl) [facility]2017-09-25 10:25:00 Test Item Value Reference Range Interpretation Comments Albumin Lvl (test code = Albumin Lvl) 3.5 3.5-5.0 [facility]villeLpmiwctTSEJJVEQJV4614-01-99 10:25:00 Test Item Value Reference Range Interpretation Comments Segs-Bands # (test code = Segs-Bands #) 5.1 1.5-8.1 [facility]villeJoomzzyNQCOFICNJS7511-88-21 10:25:00 Test Item Value Reference Range Interpretation Comments Eosinophils (test code = Eosinophils) 2.1 <=4.0 [facility]villeHieqibiYPTSHCHDVL1243-14-83 10:25:00 Test Item Value Reference Range Interpretation Comments Basophils (test code = Basophils) 0.6 <=1.0 [facility]villeKvaqmuyJKRQAGDCSG8736-22-70 10:25:00 Test Item Value Reference Range Interpretation Comments Lymphocytes # (test code = Lymphocytes 1.0 1.0-5.5 #) [facility]villeMpdcqjqSJREWEUOYR1324-35-82 10:25:00 Test Item Value Reference Range Interpretation Comments Monocytes # (test code = Monocytes #) 0.4 <=0.8 [facility]villeQnmrfhuTXJNNDPIJA6482-98-52 10:25:00 Test Item Value Reference Range Interpretation Comments Monocytes (test code = Monocytes) 6.3 2.0-12.0 [facility]villeKpnczzoMMKFNONDFF2964-31-35 10:25:00 Test Item Value Reference Range Interpretation Comments Segs (test code = Segs) 76.4 45.0-75.0 [facility] BrownsvilleZqbomfbBXNXOARQQV1297-49-45 10:25:00 Test Item Value Reference Range Interpretation Comments Lymphocytes (test code = Lymphocytes) 14.6 20.0-40.0 [facility]villeOlwivhmRUOPLKYHYT7656-11-95 10:25:00 Test Item Value Reference Range Interpretation Comments Eosinophils # (test code = Eosinophils 0.1 <=0.5 #) [facility]villeLjuextzKHIEUZYVRJ4116-85-94 10:25:00 Test Item Value Reference Range Interpretation Comments WBC X 10x3 (test code = WBC X 10x3) 6.7 3.7-10.4 [facility]villeFdlkxedJLWSLTEQQK9242-43-00 10:25:00 Test Item Value Reference Range Interpretation Comments RBC X 10x6 (test code = RBC X 10x6) 4.88 4.70-6.10 [facility]villeSzleowfWNXTBBEHPT0239-93-27 10:25:00 Test Item Value Reference Range Interpretation Comments Hgb (test code = Hgb) 15.2 14.0-18.0 [facility] [facility]XaieukqGZRMFLKWBX1851-71-10 10:25:00 Test Item Value Reference Range Interpretation Comments MCV (test code = MCV) 87.2 80.0-94.0 [facility]UntlhikAXCDACQSKM7129-65-18 10:25:00 Test Item Value Reference Range Interpretation Comments MCH (test code = MCH) 31.1 pg 27.0-31.0 [facility]KcemngtJYENOEAUEB4559-12-31 10:25:00 Test Item Value Reference Range Interpretation Comments Hct (test code = Hct) 42.6 42.0-54.0 [facility]villePoomvacGLQHJPVLPO5115-96-43 10:25:00 Test Item Value Reference Range Interpretation Comments MCHC (test code = MCHC) 35.7 32.0-36.0 [facility]NcxvwznSOJFFIXWJJ1728-06-11 10:25:00 Test Item Value Reference Range Interpretation Comments RDW (test code = RDW) 13.3 11.5-14.5 [facility]villeJgggybuYHLCNPFPWP9539-85-31 10:25:00 Test Item Value Reference Range Interpretation Comments Platelet (test code = Platelet) 231 133-450 [facility]GjjpotpUVQQOMWZLB8478-51-46 10:25:00 Test Item Value Reference Range Interpretation Comments MPV (test code = MPV) 8.3 7.4-10.4 [facility]2017-09-24 20:08:00 Test Item Value Reference Range Interpretation Comments eGFR (test code = eGFR) 114 [facility]2017-09-24 20:08:00 Test Item Value Reference Range Interpretation Comments Calcium Lvl (test code = Calcium Lvl) 8.9 8.5-10.5 [facility]2017-09-24 20:08:00 Test Item Value Reference Range Interpretation Comments Albumin Lvl (test code = Albumin Lvl) 3.9 3.5-5.0 [facility]2017-09-24 20:08:00 Test Item Value Reference Range Interpretation Comments CO2 (test code = CO2) 26 24-32 [facility]2017-09-24 20:08:00 Test Item Value Reference Range Interpretation Comments Total Protein (test code = Total 8.1 6.4-8.4 Protein) [facility]2017-09-24 20:08:00 Test Item Value Reference Range Interpretation Comments ALANINE AMINOTRANSFERASE 52 See_Comment [A utomated message] (test code = ALANINE The sys tem which AMINOTRANSFERASE) generated this result transmitted ref erence range: <=65. Th e reference range was not used to int erpret this result as normal/abnormal . [facility]2017-09-24 20:08:00 Test Item Value Reference Range Interpretation Comments Alk Phos (test code = Alk Phos) 92 39-136 [facility]2017-09-24 20:08:00 Test Item Value Reference Range Interpretation Comments Bili Total (test code = Bili Total) 0.6 0.2-1.3 [facility]2017-09-24 20:08:00 Test Item Value Reference Range Interpretation Comments ASPARTATE TRANSAMINASE 42 See_Comment [Aut omated message] (test code = ASPARTATE The s ystem which TRANSAMINASE) generated this result transmitted ref erence range: <=37. Th e reference range was not used to interpr et this result as normal/abnormal . [facility]2017-09-24 20:08:00 Test Item Value Reference Range Interpretation Comments Sodium Lvl (test code = Sodium Lvl) 139 135-145 [facility]2017-09-24 20:08:00 Test Item Value Reference Range Interpretation Comments Potassium Lvl (test code = Potassium 3.7 3.5-5.1 Lvl) [facility]2017-09-24 20:08:00 Test Item Value Reference Range Interpretation Comments Chloride Lvl (test code = Chloride Lvl) 105 95-109 [facility]2017-09-24 20:08:00 Test Item Value Reference Range Interpretation Comments Creatinine Lvl (test code = Creatinine 0.86 0.50-1.40 Lvl) [facility]2017-09-24 20:08:00 Test Item Value Reference Range Interpretation Comments Glucose Lvl (test code = Glucose Lvl) 101 70-99 [facility]2017-09-24 20:08:00 Test Item Value Reference Range Interpretation Comments BUN (test code = BUN) 12 7-22 [facility]2017-09-24 20:08:00 Test Item Value Reference Range Interpretation Comments AGAP (test code = AGAP) 11.7 10.0-20.0 [facility]2017-09-24 20:08:00 Test Item Value Reference Range Interpretation Comments B/C Ratio (test code = B/C Ratio) 14 6-25 [facility]2017-09-24 20:08:00 Test Item Value Reference Range Interpretation Comments A/G Ratio (test code = A/G Ratio) 0.9 0.7-1.6 [facility]2017-09-24 20:08:00 Test Item Value Reference Range Interpretation Comments Globulin (test code = Globulin) 4.2 2.7-4.2 [facility]2017-09-24 20:08:00 Test Item Value Reference Range Interpretation Comments Lipase Lvl (test code = Lipase Lvl) 185 73-393 [facility]villeMarfjfkZRZUXLTZAQ7814-64-72 20:08:00 Test Item Value Reference Range Interpretation Comments Monocytes # (test code 0.6 See_Comment [Aut omated message] The = Monocytes #) system which generated this result tra nsmitted reference range : <=0.8. The reference r magali was not used to int erpret this result as normal/abnormal . [facility]villeChwenuaSGEJSGTOAL5601-84-43 20:08:00 Test Item Value Reference Range Interpretation Comments Lymphocytes # (test code = Lymphocytes 1.1 1.0-5.5 #) [facility]villeNrmtdsiIWICUEHTYU5512-40-75 20:08:00 Test Item Value Reference Range Interpretation Comments Eosinophils # (test code 0.1 See_Comment [A utomated message] The = Eosinophils #) system whic h generated this result tra nsmitted reference range : <=0.5. The reference r magali was not used to int erpret this result as normal/abnormal . [facility]villeRcggduoKSDVXLYJHT8207-15-40 20:08:00 Test Item Value Reference Range Interpretation Comments Eosinophils (test code = 1.3 See_Comment [A utomated message] The Eosinophils) system which ge nerated this result tra nsmitted reference range : <=4.0. The reference r magali was not used to int erpret this result as normal/abnormal . [facility]OdplvsxHEPOBHKZCT9495-47-67 20:08:00 Test Item Value Reference Range Interpretation Comments Monocytes (test code = Monocytes) 6.1 2.0-12.0 [facility]villeVqteeasQWVRYDETEU0123-46-61 20:08:00 Test Item Value Reference Range Interpretation Comments Lymphocytes (test code = Lymphocytes) 12.0 20.0-40.0 [facility]villeZkxjrxaSGRXFZYMCY6271-96-40 20:08:00 Test Item Value Reference Range Interpretation Comments Segs (test code = Segs) 80.1 45.0-75.0 [facility]villeZgbtezkBPOUPMCBKA7797-11-50 20:08:00 Test Item Value Reference Range Interpretation Comments Basophils (test code = 0.5 See_Comment [Aut omated message] The Basophils) system which ge nerated this result tra nsmitted reference range : <=1.0. The reference r magali was not used to int erpret this result as normal/abnormal . [facility]villeTdgthqmQJYWUYOEKV1422-53-70 20:08:00 Test Item Value Reference Range Interpretation Comments Segs-Bands # (test code = Segs-Bands #) 7.6 1.5-8.1 [facility]KmyqglrBLAIRFSAOE8407-26-83 20:08:00 Test Item Value Reference Range Interpretation Comments Platelet (test code = Platelet) 237 133-450 [facility]villeYltmijzJUPWARWFWW5300-69-61 20:08:00 Test Item Value Reference Range Interpretation Comments Hgb (test code = Hgb) 16.2 14.0-18.0 [facility]villeNiuncicMZWUKRWJGR8027-78-65 20:08:00 Test Item Value Reference Range Interpretation Comments RBC X 10x6 (test code = RBC X 10x6) 5.23 4.70-6.10 [facility]villeCcegmtvQRVKBKSGPK8099-74-17 20:08:00 Test Item Value Reference Range Interpretation Comments Hct (test code = Hct) 45.8 42.0-54.0 [facility]villeBqzlgrpVQLKRTHFTS0807-54-84 20:08:00 Test Item Value Reference Range Interpretation Comments WBC X 10x3 (test code = WBC X 10x3) 9.4 3.7-10.4 [facility]villePriegyyYSJZUJDTLD5798-10-97 20:08:00 Test Item Value Reference Range Interpretation Comments MPV (test code = MPV) 8.3 7.4-10.4 [facility]villeUumrivoPAWZOBLVNF5067-54-57 20:08:00 Test Item Value Reference Range Interpretation Comments RDW (test code = RDW) 13.8 11.5-14.5 [facility]villeQtxxirhJISZUAAEAJ0132-66-60 20:08:00 Test Item Value Reference Range Interpretation Comments MCHC (test code = MCHC) 35.3 32.0-36.0 [facility]villeDwjppblAGXGFASXOO7694-54-77 20:08:00 Test Item Value Reference Range Interpretation Comments MCH (test code = MCH) 30.9 pg 27.0-31.0 [facility]villeFxrfxixPWPBLGFBNR7918-47-93 20:08:00 Test Item Value Reference Range Interpretation Comments MCV (test code = MCV) 87.6 80.0-94.0 [facility] [id number] 20:08:00 Test Item Value Reference Range Interpretation Comments UA Sq Epi (test code = None Seen (05/21/17 3:08 UA Sq Epi) PM) [facility] [id number] 20:08:00 Test Item Value Reference Range Interpretation Comments UA WBC (test code = UA WBC) 0-2 /HPF [facility] [id number] 20:08:00 Test Item Value Reference Range Interpretation Comments UA Bacteria (test code = UA Bacteria) Rare [facility] [id number] 20:08:00 Test Item Value Reference Range Interpretation Comments UA RBC (test None Seen See_Comment [Automated mes geoff] code = UA RBC) (05/21/17 3:08 The system w hich PM) generated this result transmitted ref erence range: <=2. The reference range was not used to int erpret this result as normal/abnormal . [facility] [id number] 20:08:00 Test Item Value Reference Range Interpretation Comments UA Leuk Est (test Negative (05/21/17 3:08 code = UA Leuk Est) PM) [facility] [id number] 20:08:00 Test Item Value Reference Range Interpretation Comments UA Nitrite (test code Negative (05/21/17 3:08 = UA Nitrite) PM) [facility] [id number] 20:08:00 Test Item Value Reference Range Interpretation Comments UA Glucose (test code = UA Negative mg/dL Glucose) [facility] [id number] 20:08:00 Test Item Value Reference Range Interpretation Comments UA Bili (test code = Negative *NA*(05/21/17 UA Bili) 3:08 PM) [facility] [id number] 20:08:00 Test Item Value Reference Range Interpretation Comments UA Urobilinogen (test code = UA 1.0 0.1-1.0 Urobilinogen) [facility] [id number] 20:08:00 Test Item Value Reference Range Interpretation Comments UA Ketones (test code = UA Negative mg/dL Ketones) [facility] [id number] 20:08:00 Test Item Value Reference Range Interpretation Comments UA Blood (test code = Negative (05/21/17 3:08 UA Blood) PM) [facility] [id number] 20:08:00 Test Item Value Reference Range Interpretation Comments UA Color (test code = Yellow *NA*(05/21/17 UA Color) 3:08 PM) [facility] [id number] 20:08:00 Test Item Value Reference Range Interpretation Comments UA Spec Grav (test code = UA Spec 1.010 1 Grav) [facility] [id number] 20:08:00 Test Item Value Reference Range Interpretation Comments UA Protein (test code = UA Negative mg/dL Protein) [facility] [id number] 20:08:00 Test Item Value Reference Range Interpretation Comments UA Turbidity (test code = Clear (05/21/17 3:08 UA Turbidity) PM) [facility] [id number] 20:08:00 Test Item Value Reference Range Interpretation Comments UA pH (test code = UA pH) 6.0 1 5.0-8.0 [facility]2017-09-24 20:08:00 Test Item Value Reference Range Interpretation Comments eGFR (test code = eGFR) 114 [facility]2017-09-24 20:08:00 Test Item Value Reference Range Interpretation Comments Calcium Lvl (test code = Calcium Lvl) 8.9 8.5-10.5 [facility]2017-09-24 20:08:00 Test Item Value Reference Range Interpretation Comments Albumin Lvl (test code = Albumin Lvl) 3.9 3.5-5.0 [facility]2017-09-24 20:08:00 Test Item Value Reference Range Interpretation Comments CO2 (test code = CO2) 26 24-32 [facility]2017-09-24 20:08:00 Test Item Value Reference Range Interpretation Comments Total Protein (test code = Total 8.1 6.4-8.4 Protein) [facility]2017-09-24 20:08:00 Test Item Value Reference Range Interpretation Comments ALANINE AMINOTRANSFERASE (test code = 52 <=65 ALANINE AMINOTRANSFERASE) [facility]2017-09-24 20:08:00 Test Item Value Reference Range Interpretation Comments Alk Phos (test code = Alk Phos) 92 39-136 [facility]2017-09-24 20:08:00 Test Item Value Reference Range Interpretation Comments Bili Total (test code = Bili Total) 0.6 0.2-1.3 [facility]2017-09-24 20:08:00 Test Item Value Reference Range Interpretation Comments ASPARTATE TRANSAMINASE (test code = 42 <=37 ASPARTATE TRANSAMINASE) [facility]2017-09-24 20:08:00 Test Item Value Reference Range Interpretation Comments Sodium Lvl (test code = Sodium Lvl) 139 135-145 [facility]2017-09-24 20:08:00 Test Item Value Reference Range Interpretation Comments Potassium Lvl (test code = Potassium 3.7 3.5-5.1 Lvl) [facility]2017-09-24 20:08:00 Test Item Value Reference Range Interpretation Comments Chloride Lvl (test code = Chloride Lvl) 105 95-109 [facility]2017-09-24 20:08:00 Test Item Value Reference Range Interpretation Comments Creatinine Lvl (test code = Creatinine 0.86 0.50-1.40 Lvl) [facility]2017-09-24 20:08:00 Test Item Value Reference Range Interpretation Comments Glucose Lvl (test code = Glucose Lvl) 101 70-99 [facility]2017-09-24 20:08:00 Test Item Value Reference Range Interpretation Comments BUN (test code = BUN) 12 7-22 [facility]2017-09-24 20:08:00 Test Item Value Reference Range Interpretation Comments AGAP (test code = AGAP) 11.7 10.0-20.0 [facility]2017-09-24 20:08:00 Test Item Value Reference Range Interpretation Comments B/C Ratio (test code = B/C Ratio) 14 6-25 [facility]2017-09-24 20:08:00 Test Item Value Reference Range Interpretation Comments A/G Ratio (test code = A/G Ratio) 0.9 0.7-1.6 [facility]2017-09-24 20:08:00 Test Item Value Reference Range Interpretation Comments Globulin (test code = Globulin) 4.2 2.7-4.2 [facility]2017-09-24 20:08:00 Test Item Value Reference Range Interpretation Comments Lipase Lvl (test code = Lipase Lvl) 185 73-393 [facility]villeAwsxuwgYKCERKBEMU0760-05-82 20:08:00 Test Item Value Reference Range Interpretation Comments Monocytes # (test code = Monocytes #) 0.6 <=0.8 [facility]villeQcdjzjoRWWNIBARMH8890-14-73 20:08:00 Test Item Value Reference Range Interpretation Comments Lymphocytes # (test code = Lymphocytes 1.1 1.0-5.5 #) [facility]villeDoqgechAIFIDFKEJV7407-79-32 20:08:00 Test Item Value Reference Range Interpretation Comments Eosinophils # (test code = Eosinophils 0.1 <=0.5 #) [facility]villeNidcocoDOZXCHDWSS7845-27-04 20:08:00 Test Item Value Reference Range Interpretation Comments Eosinophils (test code = Eosinophils) 1.3 <=4.0 [facility]villeQlldzedJDCDIBRULN1833-20-34 20:08:00 Test Item Value Reference Range Interpretation Comments Monocytes (test code = Monocytes) 6.1 2.0-12.0 [facility]villeGjhififESOYPFDKHO5033-63-23 20:08:00 Test Item Value Reference Range Interpretation Comments Lymphocytes (test code = Lymphocytes) 12.0 20.0-40.0 [facility]villeJnyhfruRDKDCCPUPG8731-80-17 20:08:00 Test Item Value Reference Range Interpretation Comments Segs (test code = Segs) 80.1 45.0-75.0 [facility]villeQujopuhKIQKULUQSK7252-71-50 20:08:00 Test Item Value Reference Range Interpretation Comments Basophils (test code = Basophils) 0.5 <=1.0 [facility]villeTgccmnzRONKWMCQUQ6695-98-34 20:08:00 Test Item Value Reference Range Interpretation Comments Segs-Bands # (test code = Segs-Bands #) 7.6 1.5-8.1 [facility]villeWcwdyxkSPGEYNSCPQ4672-74-02 20:08:00 Test Item Value Reference Range Interpretation Comments Platelet (test code = Platelet) 237 133-450 [facility]villeSdalyssVRHUNAVVRV3103-48-24 20:08:00 Test Item Value Reference Range Interpretation Comments Hgb (test code = Hgb) 16.2 14.0-18.0 [facility]villeQrqsvtwWIYUYSBYHS4513-26-37 20:08:00 Test Item Value Reference Range Interpretation Comments RBC X 10x6 (test code = RBC X 10x6) 5.23 4.70-6.10 [facility]villeNpoqcakMEQKWFASBZ3015-29-54 20:08:00 Test Item Value Reference Range Interpretation Comments Hct (test code = Hct) 45.8 42.0-54.0 [facility]villeFnczefdYOGHPZMNZB1319-41-69 20:08:00 Test Item Value Reference Range Interpretation Comments WBC X 10x3 (test code = WBC X 10x3) 9.4 3.7-10.4 [facility]villeShefnaaOELPXHPBRA0625-14-24 20:08:00 Test Item Value Reference Range Interpretation Comments MPV (test code = MPV) 8.3 7.4-10.4 [facility]villeQgulutcWCOZSFVYHX4740-61-77 20:08:00 Test Item Value Reference Range Interpretation Comments RDW (test code = RDW) 13.8 11.5-14.5 [facility]villeZvselohJNNYYLCLRE3941-48-43 20:08:00 Test Item Value Reference Range Interpretation Comments MCHC (test code = MCHC) 35.3 32.0-36.0 [facility]villeNnusbljWHSHUAFZNP6150-05-74 20:08:00 Test Item Value Reference Range Interpretation Comments MCH (test code = MCH) 30.9 pg 27.0-31.0 [facility]villeAjsllphKBLEZFUEBT8028-12-79 20:08:00 Test Item Value Reference Range Interpretation Comments MCV (test code = MCV) 87.6 80.0-94.0 [facility] [id number] 20:08:00 Test Item Value Reference Range Interpretation Comments UA Sq Epi (test code = None Seen (05/21/17 3:08 UA Sq Epi) PM) [facility] [id number] 20:08:00 Test Item Value Reference Range Interpretation Comments UA WBC (test code = UA WBC) 0-2 /HPF [facility] [id number] 20:08:00 Test Item Value Reference Range Interpretation Comments UA Bacteria (test code = UA Bacteria) Rare [facility] [id number] 20:08:00 Test Item Value Reference Range Interpretation Comments UA RBC (test code = UA None Seen (05/21/17 3:08 <=2 RBC) PM) [facility] [id number] 20:08:00 Test Item Value Reference Range Interpretation Comments UA Leuk Est (test Negative (05/21/17 3:08 code = UA Leuk Est) PM) [facility] [id number] 20:08:00 Test Item Value Reference Range Interpretation Comments UA Nitrite (test code Negative (05/21/17 3:08 = UA Nitrite) PM) [facility] [id number] 20:08:00 Test Item Value Reference Range Interpretation Comments UA Glucose (test code = UA Negative mg/dL Glucose) [facility] [id number] 20:08:00 Test Item Value Reference Range Interpretation Comments UA Bili (test code = Negative *NA*(05/21/17 UA Bili) 3:08 PM) [facility] [id number] 20:08:00 Test Item Value Reference Range Interpretation Comments UA Urobilinogen (test code = UA 1.0 0.1-1.0 Urobilinogen) [facility] [id number] 20:08:00 Test Item Value Reference Range Interpretation Comments UA Ketones (test code = UA Negative mg/dL Ketones) [facility] [id number] 20:08:00 Test Item Value Reference Range Interpretation Comments UA Blood (test code = Negative (05/21/17 3:08 UA Blood) PM) [facility] [id number] 20:08:00 Test Item Value Reference Range Interpretation Comments UA Color (test code = Yellow *NA*(05/21/17 UA Color) 3:08 PM) [facility] [id number] 20:08:00 Test Item Value Reference Range Interpretation Comments UA Spec Grav (test code = UA Spec 1.010 1 Grav) [facility] [id number] 20:08:00 Test Item Value Reference Range Interpretation Comments UA Protein (test code = UA Negative mg/dL Protein) [facility] [id number] 20:08:00 Test Item Value Reference Range Interpretation Comments UA Turbidity (test code = Clear (05/21/17 3:08 UA Turbidity) PM) [facility] [id number] 20:08:00 Test Item Value Reference Range Interpretation Comments UA pH (test code = UA pH) 6.0 1 5.0-8.0 [facility]
[2023-07-24 13:50] LABS: Absolute Lymphocytes (CBC) 0.4 K/uL (0.7-4.9); Hematocrit 41.2 % (39.6-49.0); Lymphocytes % 5.6 % (15.3-44.8); MCV 86.5 fL (80-100); MPV 8.2 fL (7.6-11.3); Platelets 184 thou/uL (152-406); RBC Red Blood Cell Count 4.77 M/uL (4.33-5.43)
[2023-07-24] MEDS ORDERED: ACETAMINOPHEN 500 MG TAB ONE (14:10)
--- NOTE | 2023-07-24 14:10 | RAD REPORT ---
EXAM DESCRIPTION: [place] Single View07/24/2023 1:55 pm CLINICAL HISTORY: PALPITATIONS COMPARISON: Chest Single View dated 02/20/2020; Chest Pa And Lat (2 Views) dated 03/30/2018; Chest Sing le View dated 01/17/2018; ABDOMEN ACUTE SERIES dated 02/11/2015 TECHNIQUE: Portable AP view of the chest. FINDINGS: The lungs are clear. No pneumothorax or effusion. The cardiomediastinal contours are unrem arkable. IMPRESSION: No acute cardiopulmonary process.
[2023-07-24 14:11] LABS: Albumin 3.5 g/dL (3.4-5.0); Bilirubin Direct 0.4 mg/dL (0-0.2); Bilirubin Indirect, Calculated 0.8 mg/dL (0.2-0.8); Bilirubin Total 1.2 mg/dL (0.2-1.0); Magnesium 1.9 mg/dL (1.6-2.4); Potassium 3.1 mEq/L (3.5-5.1); Protein, Total 7.6 g/dL (6.4-8.2); Troponin High Sensitivity 4.5 pg/mL (<58.9)
[2023-07-24 15:46] LABS: SARS-COV-2 RT PCR NEGATIVE (NEGATIVE)
--- NOTE | 2023-07-24 16:15 | RAD REPORT ---
EXAM DESCRIPTION: CT - Chest For Pe Angio - 07/24/2023 3:30 pm CLINICAL HISTORY: tachycardia, weaknes COMPARISON: No comparisons TECHNIQUE: Thin axial CT images of the chest were obtained following administration of 100 mL Isovue 370 IV contrast. Multiplanar reconstructions, and maximum intensity projection reconstructions were generated and reviewed. Exam utilizes a protocol for optimal evaluation of pulmonary arterial tree. All CT scans are performed using dose optimization technique as appropriate and may include automated exposure control or mA/KV adjustment according to patient size. FINDINGS: Motion artifact limits evaluation. Central pulmonary Arteries are normal. No emboli or other suspicious finding. Evaluation of the perip heral pulmonary arteries is limited by motion. No acute or significant aorta findings. No mass or infiltrate in the lung parenchyma. Subsegmental dependent atelectasis, more pronounced on the left. No pleural thickening or pleural effusion. No pneumothorax. No abnormal mediastinal or hilar masses or lymphadenopathy seen. No chest wall mass or abnormal axill iary lymphadenopathy. IMPRESSION: No evidence of acute central pulmonary emboli within limits of motion artifact. No other acute pulmonary process.
[2023-07-24] MEDS ORDERED: DIAZEPAM 5 MG TABLET ONE (17:25)
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
[2023-07-24 18:02] LABS: Blood Morphology Comment NOT SEEN (NOT SEEN); Platelet Estimate ADEQ; White Blood Cell Scan OK (OK)
[2023-07-24 18:18] VITALS: TEMP 100.2
[2023-07-24 18:20] VITALS: BP 134/78; O2SAT 100
== END 2023-07-24 18:02 | disposition home or self-care (01) ==
LOC: ER 13:24
DX: R00.0 Tachycardia, unspecified (principal); R11.2 Nausea with vomiting, unspecified; F41.9 Anxiety disorder, unspecified; R50.9 Fever, unspecified; K21.9 Gastro-esophageal reflux disease without esophagitis; I10 Essential (primary) hypertension; Z11.52 Encounter for screening for COVID-19
CPT/HCPCS: 93005; 85025; 80048; 36415; 83735; 85379; 80076; 84484; 0240U; 71275; 71045; 99284; Q9967

== ENCOUNTER 2024-04-01 05:26 | Emergency (ER) | payer BC, SELFPAY ==
[2024-04-01] MEDS ORDERED: NA CHLORIDE 0.9% 2,000 ML ONE (05:52)
[2024-04-01] MEDS ORDERED: METOCLOPRAMIDE 10 MG/2mL INJ ONE (05:52)
[2024-04-01] MEDS ORDERED: DIPHENHYDRAMINE 50 MG/ML VIAL ONE (05:52)
[2024-04-01] MEDS ORDERED: KETOROLAC 30 MG/ML INJ ONE (05:52)
[2024-04-01 06:05] LABS: SARS-CoV-2 Antigen CONTROL BLUE LINE VIS/BG OK; SARS-CoV-2 Antigen Rapid Res Negative (Negative)
[2024-04-01 06:06] LABS: Absolute Basophils 0.1 K/uL (0-0.5); Absolute Eosinophils 0.2 K/uL (0-0.5); Absolute Lymphocytes (CBC) 0.9 K/uL (0.7-4.9); Absolute Monocytes 0.4 K/uL (0.1-1.3); Basophils % 0.9 % (0-1.3); Eosinophils % 3.3 % (0-4.4); Hematocrit 43.2 % (39.6-49.0); Lymphocytes % 13.9 % (15.3-44.8); MCH 30.5 pg (27.0-35.0); MCHC 34.8 g/dL (32.0-36.0); MCV 87.6 fL (80-100); MPV 7.9 fL (7.6-11.3); Monocytes % 6.6 % (3.3-12.3); Neutrophils % 75.3 % (41.7-73.7); Nucleated Red Blood Cells % 0.1 % (0-0); Platelets 199 thou/uL (152-406); RBC Red Blood Cell Count 4.93 M/uL (4.33-5.43); Red Cell Distribution Width 13.4 % (12.1-15.2)
[2024-04-01 06:23] LABS: Albumin 3.6 g/dL (3.4-5.0); Albumin/Globulin Ratio 0.9 (1.1-1.8); Anion Gap 3.3 mEq/L (5.0-15.0); Bilirubin Total 0.7 mg/dL (0.2-1.0); C-Reactive Protein 14.7 mg/L (<3.00); Potassium 3.3 mEq/L (3.5-5.1); Protein, Total 7.6 g/dL (6.4-8.2)
[2024-04-01] MEDS ORDERED: NA CHLORIDE 0.9% 50 ML ONE (06:28)
[2024-04-01] MEDS ORDERED: CEFTRIAXONE 1000 MG/VIAL ONE (06:28)
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
[2024-04-01 09:01] VITALS: TEMP 99.5
[2024-04-01 09:07] VITALS: O2SAT 98
[2024-04-01 09:12] VITALS: BP 112/76
--- NOTE | 2024-04-01 13:28 | RAD REPORT ---
EXAM DESCRIPTION: RAD - Chest Single View - 04/01/2024 6:25 am CLINICAL HISTORY: Fever, cough. COMPARISON: XR Chest 02/15/2023(Report only). FINDINGS: 1 view(s) of the chest. Tubes and lines: None Cardiomediastinal silhouette: Normal size and contour. Lungs: No consolidation, pneumothorax, or pleural effusion. Bones: No acute osseous abnormality. Upper abdomen: No abnormality identified. IMPRESSION: 1. No acute pulmonary process identified. Electronically signed by: Srinivas Jasmine DO 04/01/2024 06:41 AM CDT RP [id number] Due to temporary technical issues with the PACS/Fluency reporting system, reports are being signed by the in house radiologist without review as a courtesy to ensure prompt reporting. The interpreting r adiologist is fully responsible for the content of the report.
== END 2024-04-01 07:34 | disposition home or self-care (01) ==
LOC: ER 05:26
DX: B33.8 Other specified viral diseases (principal); J00 Acute nasopharyngitis [common cold]; Z11.52 Encounter for screening for COVID-19
CPT/HCPCS: 96365; 85025; 36415; 80053; 86140; 71045; 96375; 99284; 87811; J2765; J1200; J7030; J0696

== ENCOUNTER 2024-12-08 20:31 | Emergency (ER) | payer BC ==
--- OUTSIDE RECORDS SUMMARY | 2024-12-08 20:35 | XMS REPORT | Continuity of Care Document ---
Author Name Unknown Address [address] [place] [address] [facility] [place] Address [address] [place] [address] Care Team Providers Care Heat Treat Puller Name Role Phone Unavailable Unavailable Unavailable Problems Condition Name Condition Details Condition Category Status Onset Date Resolution Date Last Treatment Date Treating Clinician Comments Source FOLLOW UP FOLLOW UP Active 06/13/2017 [facility] Diagnosis Active 2016-08 00:00: 00 2017-06-21 11:36:00 Keeley Cai ACUTE GALLBLADDE R ACUTE GALLBLADDE R Active 06/08/2017 [facility] Diagnosis Active 2016-08 00:00: 00 2017-06-09 14:01:00 Keeley Cai CONSULT FOR GALLSTONES CONSULT FOR GALLSTONES Active 05/23/2017 [facility] Diagnosis Active 05-23 00:00: 00 2017-05-29 13:38:00 Keeley Cai ACUTE CHOLECYSTI TIS ACUTE CHOLECYSTI TIS Active [facility] Diagnosis Active 05-21 00:00: 00 2017-05-22 15:14:00 Keeley Cai STONE IN GALBLADDER STONE IN GALBLADDER Active 05/21/2017 [facility] Diagnosis Active 05-21 00:00: 00 2017-05-21 16:16:00 Keeley Cai Morbid obesity (disorder) Morbid obesity (disorder) Active Problem 06/24/2017 [facility] Problem Active 2017-06-24 01:15:38 Memd[facility] C[facility] Pain (finding) Pain (finding) Active Problem 06/24/2017 [facility] Problem Active 2017-06-24 01:15:38 Memdougie Cai Rib pain (finding) Rib pain (finding) Active Problem 06/24/2017 [facility] Problem Active 2017-06-24 01:15:38 Fortunatodougie jossue Cai Tracheosto my present (finding) Tracheosto my present (finding) Resolved Problem 06/24/2017 [facility] Problem Resolve d 2017-06-24 01:15:38 Keeley Cai Feeding catheter, device (physical object) Feeding catheter, device (physical object) Resolved 12/15/2009 Problem 06/24/2017 inserted ENDO [place] [facility] Problem Resolve d 12-15 00:00: 00 2017-06-24 01:15:38 2017-06-24 01:15:38 Keeley Cai Social History Social Habit Start Date Stop Date Quantity Comments Source Social History 2017-05-22 01:57:04 2017-05-22 01:57:04 Jessenia Cai Medications Ordered Medication Name Filled Medication Name Start Date Stop Date Current Medication? Ordering Clinician Indication Dosage Frequency Signature (SIG) Comments Components Source Bisacodyl 2016-08 15:27: 00 No Notes: (Same As: Dulcolax, Bisco-Lax) Keeley Cai Bacitracin 0.5 UNT/MG / Polymyxin B 10 UNT/MG Topical Ointment 2016-08 15:14: 00 Yes 1 appl, TOP, QID, # 30 gm, 0 Refill(s), Pharmacy: [facility] [id number] Keeley Cai tramadol hydrochlori de 50 MG Oral Tablet 2016-08 15:14: 00 Yes 100 mg = 2 tab, PO, Q6H, PRN Pain Score 1-3, X 7 day, # 56 tab, 0 Refill(s) Keeley Cai Acetaminoph en 325 MG / Hydrocodone Bitartrate 10 MG Oral Tablet [[place] 10/325] 2016-08 15:14: 00 Yes 1 tab, PO, Q4H, PRN Pain Score 4-6, # 30 tab, 0 Refill(s), given to patient Keeley Cai Senna S oral tablet 2016-08 15:14: 00 Yes 2 tab, PO, Bedtime, X 15 day, # 30 tab, 0 Refill(s), Pharmacy: [facility] [id number] Keeley Cai POLYETHYLEN E GLYCOL 3350 142 MG/ML Oral Solution [Miralax] 2016-08 15:14: 00 Yes 17 gm, PO, Daily, X 15 day, # 255 gm, 0 Refill(s), Pharmacy: [facility] [id number] Keeley Cai bacitracin- polymyxin B topical 2016-08 18:00: 00 No Notes: (Same As: Polysporin ) Keeley Cai Neosporin 2016-08 18:00: 00 No 1 appl, Route: TOP, QID, Drug form: OINT, Start date: 06/11/17 13:00:00 CDT, Duration: 30 day, Stop date: 07/11/17 9:00:00 PMP Keeley Cai remove patch 2016-08 17:00: 00 No Notes: Remove old patch before applicatio n of new patch. WASTE: F/P - P Waste Black; E - P Waste Black Keeley Cai Nicotine 2016-08 17:00: 00 No Notes: (Same as: Habitrol) "Remove old patch before applicatio n of new patch" WASTE: F/P - P Waste Black; E - P Waste Black Keeley Cai Habitrol 2016-08 16:00: 00 No 21 mg, Route: TOP, Drug form: ERFILM, Q24H, Dosing Weight 118.864, kg, Start date: 06/11/17 11:00:00 CDT, Duration: 30 day, Stop date: 07/10/17 11:00:00 PMP Keeley Cai Dulcolax Laxative 2016-08 15:31: 00 No Notes: (Same As: Dulcolax, Correctol) (Do Not Crush) "Do Not Crush" Keeley Cai Tramadol 2016-08 15:30: 00 No Notes: Not to exceed 400mg/day. (Same As: Ultram) Keeley Cai Acetaminoph en 325 MG / Hydrocodone Bitartrate 10 MG Oral Tablet [[place] 10/325] 2016-08 15:29: 00 No Notes: Do not exceed 4gm/day of acetaminop hen. (Same as: [place] 325/10) Keeley Cai Docusate Sodium 100 MG Oral Capsule [Colace] 2016-08 22:00: 00 No Notes: (Same as: Colace) (Do Not Crush) Keeley Cai Cetirizine 2016-08 16:00: 00 No Notes: (Same As: Zyrtec) Keeley Cai tramadol hydrochlori de 50 MG Oral Tablet 2016-08 14:46: 00 No Notes: Not to exceed 400mg/day. (Same As: Ultram) Keeley Cai Acetaminoph en 325 MG / Hydrocodone Bitartrate 5 MG Oral Tablet [[place] 5/325] 2016-08 14:46: 00 No Notes: (Same as: [place] 325/5) Do not exceed 4gm/day of acetaminop hen. Fortunatodougie Sappann heparin 2016-08 13:00: 00 No Notes: porcine heparin Keeley jossue [facility] remove patch 2016-08 07:00: 00 No Notes: WASTE: F/P - P Waste Black; E - P Waste Black Keeley Cai D5W 1/2NS 1,000 mL 2016-08 18:50: 00 No 1,000 mL, Rate: 50 ml/hr, Infuse over: 20 hr, Route: IV, Dosing Weight 118.864 kg, Total Volume: 1,000, Start date: 06/09/17 13:50:00 CDT, Stop date: 07/09/17 13:49:00 PMP Keeley Sappann glycopyrrol ate (ANES) 2016-08 15:44: 00 No Route: IV, Drug form: INJ, ONCE, Stop date: 06/09/17 10:44:00 CDT Fortunatodougie jossue Cai neostigmine (ANES) 2016-08 15:44: 00 No Route: IV, Drug form: INJ, ONCE, Stop date: 06/09/17 10:44:00 CDT Fortunatodougie jossue Cai ondansetron (ANES) 2016-08 15:34: 00 No Route: IV, Drug form: INJ, ONCE, Stop date: 06/09/17 10:34:00 CDT Fortunatodougie Cai ketOROLAC (ANES) 2017 15:34: 00 No IV, ONCE Memoria jossue Cai hydromorpho ne ([facility]) 2016-08 14:02: 00 No Route: IV, Drug form: INJ, ONCE, Stop date: 06/09/17 9:02:00 CDT Memoria jossue Cai ketAMINE ([facility]) 2016-08 13:52: 00 No Route: IV, Drug form: INJ, ONCE, Stop date: 06/09/17 8:52:00 CDT Memoria jossue Cai famotidine ([facility]) 2016-08 13:42: 00 No Route: IV, Drug form: INJ, ONCE, Stop date: 06/09/17 8:42:00 CDT Memoria jossue Cai dexamethaso ne ([facility]) 2016-08 13:42: 00 No Route: IV, Drug form: INJ, ONCE, Stop date: 06/09/17 8:42:00 CDT Memdougie Cai succinylcho line ([facility]) 2016-08 13:42: 00 No Route: IV, Drug form: INJ, ONCE, Stop date: 06/09/17 8:42:00 CDT Memoria jossue Cai fentaNYL ([facility]) 2016-08 13:42: 00 No Route: IV, Drug form: INJ, ONCE, Stop date: 06/09/17 8:42:00 CDT Memdougie Cai rocuronium ([facility]) 2016-08 13:42: 00 No Route: IV, Drug form: INJ, ONCE, Stop date: 06/09/17 8:42:00 CDT Memoria jossue Cai lidocaine ([facility]) 2016-08 13:42: 00 No Route: IV, Drug form: INJ, ONCE, Stop date: 06/09/17 8:42:00 CDT Memoria jossue Cai propofol ([facility]) 2016-08 13:42: 00 No Route: IV, Drug form: INJ, ONCE, Stop date: 06/09/17 8:42:00 CDT Memoria jossue Cai metoclopram lon ([facility]) 2016-08 13:42: 00 No Route: IV, Drug form: INJ, ONCE, Stop date: 06/09/17 8:42:00 CDT Keeley Cai sodium bicarbonate (ANES) 2016-08 13:42: 00 No Route: IV, Drug form: INJ, ONCE, Stop date: 06/09/17 8:42:00 CDT Keeley Cai ceFAZolin (ANES) 2016-08 13:27: 00 No Route: IV, Drug form: INJ, ONCE, Stop date: 06/09/17 8:27:00 CDT Keeley Cai Hydralazine 2016-08 13:19: 00 No 10 mg, Route: IVP, Q20Min, Dosing Weight 118.864, kg, PRN Elevated BP, Start date: 06/09/17 8:19:00 CDT, Duration: 2 doses or times, Stop date: Limited # of times Keeley Cai Labetalol 2016-08 13:19: 00 No 10 mg, Route: IVP, Q5Min, Dosing Weight 118.864, kg, PRN Elevated BP, Start date: 06/09/17 8:19:00 CDT, Duration: 5 doses or times, Stop date: Limited # of times Keeley Cai Naloxone 2016-08 13:19: 00 No 0.4 mg, Route: IVP, Q2MIN, Dosing Weight 118.864, kg, PRN Narcotic Reversal, Start date: 06/09/17 8:19:00 CDT, Duration: 8 doses or times, Stop date: Limited # of times Keeley Cai Ondansetron 2016-08 13:19: 00 No 4 mg, Route: IVP, ONCE, Dosing Weight 118.864, kg, PRN Nausea & Vomiting, Start date: 06/09/17 8:19:00 CDT Keeley Cai Flumazenil 2016-08 13:19: 00 No 0.2 mg, Route: IVP, PRN, Dosing Weight 118.864, kg, PRN Benzodiaze pine Reversal, Initial dose, Start date: 06/09/17 8:19:00 CDT, Duration: 30 day, Stop date: 07/09/17 7:18:00 PMP Keeley Cai Hydromorpho ne 2016-08 13:19: 00 No 0.5 mg, Route: IVP, Q5Min, Dosing Weight 118.864, kg, PRN Pain Score 7-10, Start date: 06/09/17 8:19:00 CDT, Duration: 4 doses or times, Stop date: Limited # of times Keeley Cai acetaminoph en (ANES) (ANES) 2016-08 13:03: 00 No Route: IV, Drug form: INJ, Start date: 06/09/17 8:03:00 CDT, Stop date: 06/09/17 9:03:00 CDT Keeley Cai midazolam (ANES) 2016-08 13:01: 00 No Route: IV, Drug form: SOLN, ONCE, Stop date: 06/09/17 8:01:00 CDT Keeley Cai Plasma-Lyte A PH-7.4 1000 ml INJ (ANES) 2016-08 12:32: 00 No Route: IV, Total Volume: 1,000, Start date: 06/09/17 7:32:00 CDT, Stop date: 06/09/17 8:32:00 CDT Keeley Cai Protonix 2016-08 12:30: 00 No 40 mg, 1 tab, Route: PO, Drug form: ECTAB, BID-Before Meals, Start date: 06/09/17 7:30:00 CDT, Duration: 30 day, Stop date: 07/08/17 16:30:00 PMP Keeley Cai Omeprazole 2016-08 12:30: 00 No 20 mg, Route: PO, Drug form: ECCAP, BID-Before Meals, Dosing Weight 118.864, kg, Start date: 06/09/17 7:30:00 CDT, Duration: 30 day, Stop date: 07/08/17 16:30:00 PMP, Substitute Allowed Yes Keeley Cai Habitrol 2016-08 07:00: 00 No Notes: (Same as: Habitrol) "Remove old patch before applicatio n of new patch" WASTE: F/P - P Waste Black; E - P Waste Black Keeley Cai Nicotine 2016-08 03:30: 00 No Notes: (Same as: Habitrol) "Remove old patch before applicatio n of new patch" WASTE: F/P - P Waste Black; E - P Waste Black Keeley Cai Zosyn 2016-08 02:17: 00 No Notes: (Same as: Zosyn) Dosing based on Piperacill in component MEDICATION WASTE Product Size: 3375 mg Product Wasted: __0_ mg Keeley Cai Diazepam 2016-08 02:00: 00 No Notes: (Same as: Valium) Keeley Cai diazepam 5 mg oral tablet 2016-08 01:03: 00 Yes 5 mg = 1 tab, PO, Bedtime, PRN Anxiety Keeley Cai Iohexol 2016-08 23:22: 00 No 150 mL, Route: IVP, Drug Form: SOLN, Dosing Weight 118.864, kg, ONCALL, STAT, Start date: 06/08/17 18:22:00 CDT, Duration: 1 doses or times, Dose = 2.2ml/kg, Max dose = 150ml -- "To be infused by Radiology Staff ONLY" Keeley Cai Dilaudid 2016-08 21:32: 00 No Notes: Same as: Dilaudid Keeley Cai Simethicone 2016-08 21:04: 00 No Notes: (Same as: Mylicon) Keeley Cai Protonix 2016-08 21:03: 00 No Notes: For IV push reconstitu te with 10 ml 0.9% sodium chloride and push over 2 minutes. (Same as: Protonix) Keeley Cai sodium chloride 0.9% 1000 ml INJ 1,000 mL 2016-08 20:38: 00 No 1,000 mL, Rate: 150 ml/hr, Infuse over: 6.7 hr, Route: IV, Dosing Weight 119.3 kg, Total Volume: 1,000, Start date: 06/08/17 15:38:00 CDT, Duration: 30 day, Stop date: 07/08/17 15:37:00 PMP Keeley Cai Glucagon 2016-08 20:34: 00 No 1 mg, Route: IM, Drug form: PDR/INJ, PRN, Dosing Weight 119.3, kg, PRN Blood Glucose Results, Start date: 06/08/17 15:34:00 CDT, Duration: 30 day, Stop date: 07/08/17 14:33:00 PMP Keeley Cai Dextrose 50% Syringe 2016-08 20:34: 00 No 25 gm, 50 mL, Route: IVP, Drug Form: INJ, Dosing Weight 119.3, kg, PRN, PRN Blood Glucose Results, Start date: 06/08/17 15:34:00 CDT, Duration: 30 day, Stop date: 07/08/17 14:33:00 PMP Keeley Cai Insulin regular 2016-08 20:34: 00 No 60 units) WASTE: F/P - Black; E - Municipal Trash Bin Stable for 28 days at room temperatur e Expires in days from ____Date Keeley Cai Phenergan 2016-08 20:27: 00 No Notes: Do not give IV push. (Same as: Phenergan) Keeley Cai Dextrose 5% with 0.45% NaCl IV 1,000 mL 2016-08 20:27: 00 No 1,000 mL, Rate: 150 ml/hr, Infuse over: 6.7 hr, Route: IV, Dosing Weight 119.3 kg, Total Volume: 1,000, Start date: 06/08/17 15:27:00 CDT, Duration: 30 day, Stop date: 07/08/17 15:26:00 PMP Keeley Cai Saline Flush 0.9% 2016-08 20:27: 00 No Notes: (Same as: BD Posiflush) Keeley Cai Morphine 2016-08 20:27: 00 No Notes: (Same as:MORPhin e Sulfate) Keeley Cai Acetaminoph en 300 MG / Codeine Phosphate 30 MG Oral Tablet 2016-08 19:48: 00 Yes 1 tab, PO, Q6H, 0 Refill(s) Keeley Cai Omeprazole 05-23 14:00: 00 No Route: PO, Daily, Dosing Weight 121.818, kg, Start date: 05/23/17 9:00:00 CDT, Duration: 30 day, Stop date: 06/21/17 9:00:00 CDT Keeley Cai Zslimtec 05-23 14:00: 00 No Notes: (Same As: Zyrtec) Keeley Cai Protonix 05-23 12:30: 00 No Notes: Tablet should not be chewed or crushed. (Same as: Protonix) Keeley Cai Diazepam 05-23 02:00: 00 No Notes: (Same as: Valium) Keeley Cai Acetaminoph en 300 MG / Codeine Phosphate 30 MG Oral Tablet [Tylenol with Codeine #3] 05-22 19:56: 00 No 1 - 2 tab, PO, Q4H, PRN Pain, X 2 day, # 20 tab, 0 Refill(s) Keeley Cai Diazepam 05-22 03:23: 00 No Notes: (Same as: Valium) Keeley Cai Diazepam 05-22 02:01: 00 Yes 5 mg, PO, Bedtime, 0 Refill(s) Keeley Cai Zyrtec 05-22 02:01: 00 Yes 10 mg, PO, Daily, 0 Refill(s) Keeley Cai Omeprazole 05-22 02:01: 00 Yes See Instructio ns, Omeprazole with magnesium 20.6 PO Daily, 0 Refill(s) Keeley Cai Ondansetron 05-21 21:11: 00 No Notes: (Same as: Renay) MEDICATION WASTE Product Size: 4 mg Product Wasted: ___ mg Fortunatodougie Sappann Acetaminoph en 05-21 21:11: 00 No Notes: Do not exceed 4 gm/day. (Same as: Tylenol) Fortunatodougie jossue Coolidge Acetaminoph en 325 MG / Hydrocodone Bitartrate 5 MG Oral Tablet 05-21 21:11: 00 No Notes: (Same as: [place] 325/5) Do not exceed 4gm/day of acetaminop hen. Keeley Cai Morphine 05-21 21:11: 00 No 2 mg, 1 mL, Route: IVP, Drug form: SOLN, Q4H, Dosing Weight 120.455, kg, PRN Pain Score 7-10, Start date: 05/21/17 16:11:00 CDT, Duration: 30 day, Stop date: 06/20/17 16:10:00 CDT Fortunatodougie Cai Zosyn 05-21 20:50: 00 No Notes: (Same as: Zosyn) Dosing based on Piperacill in component MEDICATION WASTE Product Size: 3375 mg Product Wasted: ___ mg Keeley Cai Morphine 05-21 20:35: 00 No 4 mg, Route: IVP, ONCE, Dosing Weight 120.455, kg, Start date: 05/21/17 15:35:00 CDT, Stop date: 05/21/17 15:35:00 CDT Fortunatodougie Cai Sodium Chloride 0.9% (Bolus) IV 05-21 20:35: 00 No 1,000 mL, 1,000 ml/hr, Infuse Over: 1 hr, Route: IV, 1,000, Drug form: INJ, ONCE, Priority: STAT, Dosing Weight 120.455 kg, Start date: 05/21/17 15:35:00 CDT, Duration: 1 doses or times, Stop date: 05/21/17 15:35:00 CDT Fortunatodougie Cai Ondansetron 05-21 19:13: 00 No Notes: (Same as: Zofran) MEDICATION WASTE Product Size: 4 mg Product Wasted: ___ mg Keeley Cai Sodium Chloride 0.9% (Bolus) IV 05-21 19:13: 00 No 1,000 mL, 1000 ml/hr, Infuse Over: 1 hr, Route: IV, 1,000, Drug form: INJ, ONCE, Priority: STAT, Dosing Weight 120.455 kg, Start date: 05/21/17 14:13:00 CDT, Duration: 1 doses or times, Stop date: 05/21/17 14:13:00 CDT Keeley Cai Vital Signs Vital Name Observation Time Observation Value Comments S ource BMI Calculated 2017-06-21 17:10:00 [facility] Weight 2017-06-21 17:10:00 [facility] Height 2017-06-21 17:10:00 180.3 cm [facility] Heart Rate 2017-06-21 17:10:00 [facility] Respitory Rate 2017-06-21 17:10:00 [facility] Systolic (mm Hg) 2017-06-21 17:10:00 [facility] Diastolic (mm Hg) 2017-06-21 17:10:00 [facility] Heart Rate 2017-06-12 16:38:00 [facility] Temperature Oral (F) 2017-06-12 16:38:00 97.7 F [facility] Respitory Rate 2017-06-12 16:38:00 [facility] Systolic (mm Hg) 2017-06-12 16:38:00 [facility] Diastolic (mm Hg) 2017-06-12 16:38:00 [facility] Temperature Oral (F) 2017-06-12 12:34:00 97.9 F [facility] Heart Rate 2017-06-12 12:34:00 [facility] Respitory Rate 2017-06-12 12:34:00 [facility] Systolic (mm Hg) 2017-06-12 12:34:00 [facility] Diastolic (mm Hg) 2017-06-12 12:34:00 [facility] Temperature Oral (F) 2017-06-12 09:44:00 97.5 F [facility] Heart Rate 2017-06-12 09:44:00 [facility] Respitory Rate 2017-06-12 09:44:00 [facility] Systolic (mm Hg) 2017-06-12 09:44:00 [facility] Diastolic (mm Hg) 2017-06-12 09:44:00 [facility] Weight 2017-06-08 22:49:00 [facility] Height 2017-06-08 21:21:00 180.34 cm [facility] BMI Calculated 2017-06-08 21:21:00 [facility] Weight 2017-06-08 21:21:00 [facility] Weight 2017-05-29 19:28:00 [facility] BMI Calculated 2017-05-29 19:28:00 [facility] Height 2017-05-29 19:28:00 182.8 cm [facility] Respitory Rate 2017-05-29 19:28:00 [facility] Systolic (mm Hg) 2017-05-29 19:28:00 [facility] Diastolic (mm Hg) 2017-05-29 19:28:00 [facility] Heart Rate 2017-05-29 19:28:00 [facility] Temperature Oral (F) 2017-05-22 16:30:00 97.9 F [facility] Heart Rate 2017-05-22 16:30:00 [facility] Systolic (mm Hg) 2017-05-22 16:30:00 [facility] Diastolic (mm Hg) 2017-05-22 16:30:00 [facility] Heart Rate 2017-05-22 13:00:00 [facility] Temperature Oral (F) 2017-05-22 13:00:00 98.9 F [facility] Respitory Rate 2017-05-22 13:00:00 [facility] Systolic (mm Hg) 2017-05-22 13:00:00 [facility] Diastolic (mm Hg) 2017-05-22 13:00:00 [facility] Temperature Oral (F) 2017-05-22 09:00:00 97.8 F [facility] Heart Rate 2017-05-22 09:00:00 [facility] Systolic (mm Hg) 2017-05-22 09:00:00 [facility] Diastolic (mm Hg) 2017-05-22 09:00:00 [facility] Respitory Rate 2017-05-22 09:00:00 [facility] Respitory Rate 2017-05-22 05:00:00 [facility] Height 2017-05-22 01:50:00 182.88 cm [facility] Weight 2017-05-22 01:50:00 [facility] BMI Calculated 2017-05-22 01:50:00 [facility] Height 2017-05-21 18:16:00 182.88 cm [facility] BMI Calculated 2017-05-21 18:16:00 [facility] Weight 2017-05-21 18:16:00 [facility] Procedures Procedure Date / Time Performed Performing Clinicia n Source Abdominal wall procedure<sup>1</sup> [facility] Encounters Start Date/Time End Date/Time Encounter Type Admission Type Attending [facility] Care Facility Care Department Encounter ID Source 2020-04-15 00:00:00 2020-04-15 00:00:00 Outpatient [facility] [id number] [facility] 2017-06-21 16:36:00 2017-06-22 04:59:00 [facility] [id number] Fortunatodougie jossue [facility] 2017-06-08 20:31:00 2017-06-12 18:20:00 Inpatient nullFlavo r [facility] [id number] Keeley Cai 2017-05-29 18:31:00 2017-05-30 04:59:00 [facility]avo [facility] [id number] Keeley Cai 2017-05-21 18:06:00 2017-05-22 20:45:00 Observatio n nullFlavo r [facility] [id number] Keeley Cai Results Test Description Test Time Test Comments Results Result Co mments Source [id number] 08:11:00* Test Item Value Reference Range Interpretation Comme nts AGAP (test code = AGAP) 12.9 10.0-20.0 [id number] 08:11:00* Test Item Value Reference Range Interpretation Comme nts RBC (test code = RBC) 4.58 4.70-6.10 [facility] [id number] 10:05:00* Test Item Value Reference Range Interpretation Comme nts Phosphorus (test code = Phosphorus) 2.1 2.5-4.5 [facility] [id number] 10:05:00* Test Item Value Reference Range Interpretation Comme nts Hgb (test code = Hgb) 14.1 14.0-18.0 [facility] [id number] 11:17:00* Test Item Value Reference Range Interpretation Comme nts Amylase Lvl (test code = Amylase Lvl) 94 25-115 [facility] [id number] 11:17:00* Test Item Value Reference Range Interpretation Comme nts Platelet (test code = Platelet) 179 133-450 [facility] [id number] 09:18:00* Test Item Value Reference Range Interpretation Comme nts Lipase Lvl (test code = Lipase Lvl) 3772 73-393 [facility]2017-10-12 23:25:00* Test Item Value Reference Range Interpretation Comme nts Lactic Acid Lvl (test code = Lactic Acid Lvl) 0.5 0.5-2.2 [facility] [id number] 23:25:00* Test Item Value Reference Range Interpretation Comme nts Trig (test code = Trig) 97 [facility] [id number] 23:25:00* Test Item Value Reference Range Interpretation Comme nts Antibody Scrn (test code = Antibody Scrn) Negative (06/08/17 6:25 PM) [id number] 23:25:00* Test Item Value Reference Range Interpretation Comme nts PT (test code = PT) 12.9 s 12.0-14.7 [facility]2017-10-12 21:27:00* Test Item Value Reference Range Interpretation Comme nts Lipase Lvl (test code = Lipase Lvl) 16493 73-393 [facility] [id number] 21:27:00* Test Item Value Reference Range Interpretation Comme nts Basophils # (test code = Basophils #) 0.1 <=0.2 [facility]2017-09-25 10:25:00* Test Item Value Reference Range Interpretation Comme nts eGFR (test code = eGFR) 120 [facility] [id number] 10:25:00* Test Item Value Reference Range Interpretation Comme nts Segs-Bands # (test code = Segs-Bands #) 5.1 1.5-8.1 [facility] [id number] 20:08:00* Test Item Value Reference Range Interpretation Comme nts eGFR (test code = eGFR) 114 [facility] [id number] 20:08:00* Test Item Value Reference Range Interpretation Comme nts Monocytes # (test code = Monocytes #) 0.6 <=0.8 [facility] AND [id number] 20:08:00* Test Item Value Reference Range Interpretation Comme nts UA Sq Epi (test code = UA Sq Epi) None Seen (05/21/17 3:08 PM) Jessenia Cai
[2024-12-08] MEDS ORDERED: ONDANSETRON 4 MG/2 ML VIAL ONE (21:20)
[2024-12-08] MEDS ORDERED: NA CHLORIDE 0.9% 1,000 ML ONE (21:21)
[2024-12-08] MEDS ORDERED: KETOROLAC 30 MG/ML INJ ONE (21:21)
[2024-12-08 21:45] LABS: Absolute Basophils 0.1 K/uL (0-0.5); Absolute Lymphocytes (CBC) 0.7 K/uL (0.7-4.9); Absolute Monocytes 0.5 K/uL (0.1-1.3); Absolute Neutrophil 9.8 K/uL (1.8-8.0); Basophils % 0.5 % (0-1.3); Eosinophils % 0.2 % (0-4.4); Hematocrit 43.9 % (39.6-49.0); Hemoglobin 15.4 g/dL (13.6-17.9); MCH 30.4 pg (27.0-35.0); MCV 86.7 fL (80-100); MPV 8.1 fL (7.6-11.3); Monocytes % 4.4 % (3.3-12.3); Neutrophils % 88.9 % (41.7-73.7); Nucleated Red Blood Cells % 0.3 % (0-0); Platelets 187 thou/uL (152-406); RBC Red Blood Cell Count 5.06 M/uL (4.33-5.43); Red Cell Distribution Width 13.5 % (12.1-15.2)
[2024-12-08 22:05] LABS: Albumin 3.5 g/dL (3.4-5.0); Albumin/Globulin Ratio 0.8 (1.1-1.8); Anion Gap 9.6 mEq/L (5.0-15.0); Globulin 4.2 g/dL (2.3-3.5); Protein, Total 7.7 g/dL (6.4-8.2)
[2024-12-08 22:06] LABS: Specific Gravity 1.015 (1.005-1.030); Sqamous Epithelial None Seen /HPF (None Seen); Urine Bacteria None Seen /HPF (<20); Urine Bilirubin NEGATIVE (Negative); Urine Blood 2+ (Negative); Urine Clarity Clear (Clear); Urine Color Light-Yellow (Yellow); Urine Culture Reflex Order NOT NEEDED; Urine Glucose NEGATIVE (Negative); Urine Ketones NEGATIVE (Negative); Urine Microscopic Reflex YN ORDER UMIC; Urine Mucus Slight /HPF (None Seen); Urine Nitrite NEGATIVE (Negative); Urine Protein NEGATIVE (Negative); Urine Urobilinogen Normal (Normal); Urine WBC <5 /HPF (<5)
[2024-12-08 22:07] LABS: Potassium 3.6 mEq/L (3.5-5.1)
[2024-12-08] MEDS ORDERED: LORazepam 2 MG/ML VIAL ONE (22:42)
[2024-12-08 23:24] LABS: Blood Morphology Comment NOT SEEN (NOT SEEN); Platelet Estimate ADEQ; White Blood Cell Scan OK (OK)
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
[2024-12-09 00:52] VITALS: O2SAT 97
[2024-12-09 00:53] VITALS: BP 123/89; TEMP 98.8
== END 2024-12-09 00:29 | disposition home or self-care (01) ==
LOC: ER 20:31
DX: R11.10 Vomiting, unspecified (principal); R51.9 Headache, unspecified; I10 Essential (primary) hypertension; F17.220 Nicotine dependence, chewing tobacco, uncomplicated
CPT/HCPCS: 96361; 93005; 85025; 81001; 36415; 84484; 83690; 80053; 96375; 96374; 99284; J2405; J7030